=== PATIENT | male | born 1950 | race Caucasian/White ===

== ENCOUNTER 2024-02-14 22:43 | Inpatient (IN) | payer MEDICARE, OTHER, SELFPAY ==
[2024-02-14 18:26] VITALS: BP 140/103
[2024-02-14 18:34] VITALS: BP 148/108
[2024-02-14 18:38] VITALS: BMI 27.2
[2024-02-14 19:00] VITALS: BP 105/81
--- NOTE | 2024-02-14 19:07 | ED.GENMED ---
History of Present Illness
General
Chief Complaint: Fever
Source: patient
Time Seen by Provider: 02/14/24 18:56
Travel History
Have you had any contact with someone who has COVID-19?: No
Do you have any symptoms of coronavirus? Fever > 100 degrees, chills, cough, shortness of breath, sore throat, loss of taste or smell, muscle aches, or headache?: Yes
Symptoms:: fever
History of Present Illness
History of Present Illness:
73-year-old male presents emergency room complaining of weakness, fevers, increased with urination. Patient has a neurodegenerative disease called posterior cortical atrophy. He has been having the above issues with urination over the past several
weeks. This has been worked up by urology including a urodynamic study. They felt like he was developing a neurogenic bladder. was instructed to perform intermittent catheterization at home. When the patient is catheterized she gets about
150 cc of urine. When he is with spontaneously he voids about 150 cc of urine. No significant cough. No shortness of breath. Patient seems to have more tremors and spasticity over the past couple days.
Past History
Past History
ED Past Medical History: Other (Posterior cortical atrophy)
ED Past Surgical History: None
Social History
Tobacco: Non-smoker
Alcohol: None
Drug: None
Personal:
Living: with family
Employment: Retired
Phy Exam
Physical Exam
Physical Exam:
General: Awake, Alert, Oriented X3. No acute distress, appears chronically ill
Vitals: Febrile, tachycardic
Head: Atraumatic
Eyes: Pupils equal, EOMI
Throat: Airway intact, no exudates, dry mucosa
Neck: Trachea midline
Lungs: Clear and equal b/l
Heart: Regular rate, no murmurs
Abd: Soft, Nontender, No pulsatile mass
Neuro: Grossly nonfocal, intermittent myoclonic jerk
Skin: Warm, dry, no rash
Extremities: pulses equal b/l, no edema
Course
Orders/Labs/Results
Orders:
Orders
02/14/24 Dinner
Regular
At Your Request: Limited Participation
02/14/24 18:53
Electrocardiogram (*1) Urgent
Reason for Study: Other
Other Reason for Exam: Possible Sepsis
Cardiac Monitoring- Treatment ONCE
Straight cath- Treatment ONCE
O2 Therapy [RESP] Urgent
Titrate/Wean O2 to maintain O2 sat greater than (%): 93
Special Instructions: TO MAINTAIN CONTINUOUS O2 SATS > OR = 93%
Pulse Ox/cont/shift [RESP] Urgent
Quantity: 1
Special Instructions: CONTINUOUS
02/14/24 18:54
EKG- Treatment ONCE
02/14/24 19:01
Complete Blood Count/With Diff Urgent
Comprehensive Metabolic Panel Urgent
Lactic Acid Q4H
Comment: ON ICE, CANCEL 2ND ORDER IF FIRST LACTIC ACID LEVEL <2
02/14/24 19:05
Acetaminophen [Tylenol Suspension] 650 mg PO NOW STA
02/14/24 19:06
Straight cath- Treatment ONCE
02/14/24 19:41
COVID-19 Antigen Urgent
Source: Nasal Swab
Blood Culture Q30M
CHARANJIT Source: Blood/Venous
Specimen Description:
Blood Culture Q30M
CHARANJIT Source: Blood/Venous
Specimen Description:
Influenza A+B Rapid Molecular Urgent
CHARANJIT Source: Nasal Swab
Specimen Description:
02/14/24 20:26
Urinalysis Reflex To Culture Urgent
Date Specimen was Collected: 02/14/24
Time Specimen was Collected: 18:54
Urine Microscopic Reflex Cult Urgent
Urine Culture Urgent
CHARANJIT Source: U
Specimen Description:
Date Specimen was Collected: 02/14/24
Time Specimen was Collected: 18:54
02/14/24 20:33
Ibuprofen [Motrin] 400 mg PO NOW STA
02/14/24 20:39
Ibuprofen [Motrin] 400 mg PO NOW STA
02/14/24 21:22
CefTRIAXone [Rocephin] 1,000 mg IV NOW STA
02/14/24 22:08
Admit/Transfer Patient As Directed
Co-Sign Provider:
Level of Care: Inpatient admission
Assign to:: Medical/Surgical
Physician / Group: Mary
Diagnosis: Sepsis UTI
Reason for Hospitalization: Sepsis UTI
Expected length of stay greater than two midnights?: Yes
ELOS- Estimated Length of Stay in days: 2
I certify the patient meets the requirements for IP care: Yes
02/14/24 22:11
Code Status As Directed
Resuscitation Status: Do not resuscitate
Reached after discussion with pt or family/Healthcare POA: Yes
DNR Bracelet Application ONCE
02/14/24 23:00
Methenamine Hippurate [Hiprex] 1 gram PO BID
02/14/24 23:27
0.9% Sodium Chloride 1000 ml [Nss] 1,000 ml IV 80 mls/hr
Acetaminophen [Tylenol] 650 mg PO Q4HPRN PRN
Bisacodyl [Dulcolax] 10 mg RECTAL [id number] PRN
Docusate W/Senna [Senokot-S] 1 tablet PO BIDPRN PRN
Memantine HCl [Namenda] 10 mg PO BID
Mirtazapine [Remeron] 7.5 mg PO HS
Ondansetron Injectable [Zofran] 4 mg IV Q6HPRN PRN
Polyethylene Glycol Powder [Miralax] 17 grams PO DAILYPRN PRN
Quetiapine Fumarate [Seroquel] 12.5 mg PO HSPRN PRN
02/14/24 23:27
Activity As Directed
Activity Level: As Tolerated
Intake/ Output As Directed
Frequency: Per unit guidelines
Vital Signs As Directed
Frequency: Per unit guidelines
Weight As Directed
Frequency: Daily
DX Deep Vein Thrombosis Video Routine
02/15/24 07:30
Basic Metabolic Panel IN AM
Complete Blood Count/With Diff IN AM
Magnesium IN AM
02/15/24 18:00
Enoxaparin Sodium [Lovenox] 40 mg SC QPM
Abnormal Lab Results
02/14/24 02/14/24
19:01 20:26
WBC 18.6 H 10^3/uL
(4.8-10.8)
MCH 31.3 H pg
(27.0-31.0)
MPV 10.7 H fL
(7.4-10.4)
Abs Immat Gran (auto) 0.1 H 10^3/uL
(0-0.05)
Absolute Neuts (auto) 15.3 H 10^3/uL
(1.4-6.5)
Absolute Lymphs (auto) 1.1 L 10^3/uL
(1.2-3.4)
Absolute Monos (auto) 1.2 H 10^3/uL
(0.1-0.6)
Absolute Eos (auto) 0.8 H 10^3/uL
(0-0.7)
Neutrophils % 82.3 H %
(42.2-75.2)
Lymphocytes % 6.1 L %
(20.5-51.1)
BUN 31 H mg/dl
(9-20)
Urine Ketones Trace A
(Negative)
Ur Occult Blood Reflex 4+ A
(Negative)
Urine Nitrite (Reflex) Positive A
(Negative)
Leukocyte Esterase Rfl 2+ A
(Negative)
Urine RBC 26-30 A /HPF
(0-2)
Urine WBC (Reflex) >100 A /HPF
(0-5)
Urine Bacteria (Reflex) Moderate A
(Negative)
Urine Albumin (Reflex) 2+ A
(Neg - Trace)
02/14/24 19:01
02/14/24 19:01
Vital Signs
Initial and Last Documented VS:
Initial Vital Signs
Temp Pulse Resp BP Pulse Ox
99.8 F 121 18 140/103 89
02/14/24 18:26 02/14/24 18:26 02/14/24 18:26 02/14/24 18:26 02/14/24 18:26
Last Documented Vital Signs
Temp Pulse Resp BP Pulse Ox
98.2 F 70 17 124/83 96
02/18/24 15:30 02/18/24 15:30 02/18/24 15:30 02/18/24 15:30 02/18/24 15:30
MDM/Problems Addressed
Differential Diagnosis Includes:
Viral syndrome, UTI, pneumonia
MDM/Problems Addressed:
Patient presents with fever., Urinary symptoms. He is receiving intermittent catheterizations. He does take prophylactic methenamine.
Urine highly c/w UTI. Abx initiated. Given pt symptoms and co-morbidities pt will require inpatient management.
*Critical Care Note
Total Time (30-74mins, 75-104mins- exclusive of procedures): Not Applicable
ED Attending Note
-
Portions of this chart may have been created with voice recognition software.� Occasional wrong word or��sound alike� substitutions may have occurred due to the inherent limitations of voice recognition software.
Discharge Plan
Departure
Patient Disposition: Admit
Date of Disposition: 02/14/24
Time of Disposition: 21:27
Admit to: Med/Surg
Presentation/result/management discussed w/ accepting MD/DO: Hospitalist
Condition: Fair
Discharge Problem:
Acute UTI
Interventions
Interventions:
*Risk Screen - Suicide Last Done: 02/14/24 23:31
*General Assessment Last Done: 02/14/24 18:39
*Neglect/Abuse Screening Last Done: 02/14/24 18:39
ED- Fall Risk Assessment Last Done: 02/14/24 18:39
*ED COVID-19 Vaccine History Last Done: 02/14/24 23:31
*Nursing Disposition Last Done: 02/14/24 23:09
ED- Neurological Assessment Last Done: 02/14/24 18:39
ED-Skin Assessment Last Done: 02/14/24 18:39
Discharge Date and Time
Discharge Date/Time: 02/14/24 23:10
[2024-02-14 19:11] LABS: % Basophils 0.4 % (0-2); % Eosinophils 4.3 % (0-6); % Immature Granulocytes 0.3 % (0-0.5); % Lymphocytes 6.1 % (20.5-51.1); % Monocytes 6.6 % (1.7-9.3); % Neutrophils 82.3 % (42.2-75.2); Absolute Basophils 0.1 10^3/uL (0-0.2); Absolute Eosinophils 0.8 10^3/uL (0-0.7); Absolute Immature Granulocytes 0.1 10^3/uL (0-0.05); Absolute Lymphocytes 1.1 10^3/uL (1.2-3.4); Absolute Monocytes 1.2 10^3/uL (0.1-0.6); Absolute Neutrophils 15.3 10^3/uL (1.4-6.5); Hematocrit 42.8 % (39.0-52.0); Mean Corpuscular Hgb 31.3 pg (27.0-31.0); Mean Corpuscular Volume 89.2 fL (80.0-94.0); Mean Platelet Volume 10.7 fL (7.4-10.4); Nucleated Red Blood Cells % 0 % (-); Platelet Count 245 10^3/uL (130-400); Red Cell Dist. Width 12.7 % (11.5-14.5); White Blood Cell Count 18.6 10^3/uL (4.8-10.8)
[2024-02-14 19:18] LABS: Lactic Acid 1.4 mmol/L (0.7-2.0)
[2024-02-14 19:20] LABS: ALT (SGPT) 33 U/L (0-50); AST (SGOT) 31 U/L (17-59); Albumin 4.2 g/dl (3.5-5.0); Alkaline Phosphatase 76 U/L (38-126); Blood Urea Nitrogen 31 mg/dl (9-20); Carbon Dioxide 24 mmol/L (22-30); Chloride 104 mmol/L (98-107); Estimated Creatinine Clearance 60 ml/min; Glucose 99 mg/dl (70-99); Potassium 4.7 mmol/L (3.5-5.1); Sodium 135 mmol/L (135-145); Total Bilirubin 0.6 mg/dl (0.2-1.3); Total Protein 7.3 g/dl (6.3-8.2); eGFR > 60.00
[2024-02-14] MEDS: TYLENOL SUSPENSION 650 MG PO (19:31)
[2024-02-14 20:08] LABS: COVID-19 Antigen Negative (Negative)
[2024-02-14 20:24] VITALS: BP 120/110
[2024-02-14] MEDS: MOTRIN 400 MG PO (20:43)
[2024-02-14 20:45] LABS: Urine Albumin 2+ (Neg - Trace); Urine Bilirubin Negative (Negative); Urine Character Slightly Cloudy (Clear); Urine Color Yellow; Urine Glucose Negative (Negative); Urine Ketone Trace (Negative); Urine Leukocyte 2+ (Negative); Urine Nitrite Positive (Negative); Urine Occult Blood 4+ (Negative); Urine Specific Gravity 1.015 (<1.030); Urine Urobilinogen Negative (Neg - 1+)
[2024-02-14 21:12] LABS: Urine Bacteria Moderate (Negative); Urine Red Blood Cell 26-30 /HPF (0-2); Urine White Cell >100 /HPF (0-5)
--- NOTE | 2024-02-14 21:38 | HPS.HSE ---
Family Physician
-
Family Physician: Francisco Ibanez
Chief Complaint
-
Weakness, Chills, Decreased Mentation x 2 days
History of Present Illness
73yo M with PMH Posterior Cortical Atrophy (left sided weakness, sensory deficit, visual deterioration), Reactive Airway Disease, BPH s/p TURP, IBS, Fatty Liver currently on palliative care services with Dr. Yousif presents to ER with complaint
chills, increased urination, decreased mentation worsening over last 2 days. Pt is a poor historian. at bedside aiding HPI. She states pt followed up with Urology Dr. Dietrich last week for urodynamics which reports possibly showed
neurogenic bladder but otherwise wnl. She started straight cathing but never had output of over 175cc decreasing progressively over last few days. Pt endorses mild suprapubic discomfort. does state pt completed out a 14 day course of
doxycycline for unclear infection prior to urodynamics. At baseline pt is AAOx3, confined primarily to wheel chair, has a small sacral wound. ROS limited. Denies diaphoresis, chest pain, palps, wheezing, cough, abd pain, n/v/d/c, calf or leg pain.
ER course: Pt presents Tmax 102.3, HR 129, RR 26, BP stable. WBC 18.6K. BUN/Cr 31/1.2, LA 1.4, LFTs wnl. COVID(-). BC x 2 ordered. S/P 1gm IV rocephin and 400mg Ibuprofen x 2 in ER.
Medical History
Past Medical History
Past Medical History: Reports Other (posterior cortical atrophy with chronic left-sided weakness/numbness and visual deterioration, IBS, reactive airway disease, fatty liver, BPH )
Past Surgical History: Reports None and Other
Social History
Tobacco: Non-smoker
Alcohol: None
Drug: None
Family History
Family History: Not pertinent
Allergies / Home Medications
Allergies
Allergy/AdvReac Type Severity Reaction Status Date / Time
tamsulosin [From Flomax] Allergy Nightmares Verified 02/14/24 18:24
Home Medications
memantine 10 mg tablet 10 mg PO BID 09/09/20
methenamine hippurate 1 gram tablet 1 g PO BID 02/14/24
mirtazapine 7.5 mg tablet 7.5 mg PO HS 02/14/24
quetiapine 25 mg tablet (Seroquel) 12.5 mg PO HS PRN sleep 02/14/24
Allergy/Medication List:
as above
Review of Systems
-
A 12 point ROS was completed and negative except as noted: Yes
Physical Exam
Vital Signs
Vital Signs
Temp Pulse Resp BP Pulse Ox
102.3 F H 120 23 120/110 97
02/14/24 20:27 02/14/24 20:45 02/14/24 20:45 02/14/24 20:24 02/14/24 18:45
Physical Exam
General: Well Nourished, No Apparent Distress, Poor Appetite and Appears Chronically Ill
HEENT: NormoCephalic, Atraumatic, PERRLA and Other (Dry MM, No exudates in oropharynx)
Respiratory: Clear
Cardiac: S1/S2 and Regular Rhythm; No Murmur or Rub
GI: Soft, Non Tender, Non Distended and Normal Bowel Sounds; No Organomegaly
Rectal: Deferred by Provider
Genito-urinary: No costovertebral tender and Supratubic Tube; No Chanel
Musculoskeletal: No Clubbing, No Cyanosis and No Edema
Skin: Warm and Dry; No Rash
Neuro: Awake and Nonfocal/grossly intact
Laboratory Results
-
02/14/24 19:01
02/14/24 19:01
Laboratory Results
Lactic Acid 1.4 mmol/L (0.7-2.0) 02/14/24 19:01
Total Bilirubin 0.6 mg/dl (0.2-1.3) 02/14/24 19:01
AST 31 U/L (17-59) 02/14/24 19:01
ALT 33 U/L (0-50) 02/14/24 19:01
Alkaline Phosphatase 76 U/L (38-126) 02/14/24 19:01
Data Reviewed
-
Medical Tests (Nuc Med, Echo, EKG etc): Image Personally Visualized and interpreted
Lab Data: Labs Reviewed by me
Old Records: Reviewed
Impression/Plan
-
Sepsis 2/2 UTI
- +4/4 SIRS (HR 129, RR 26, T 102.3, WBC 18.6K). LA 1.4. Continue IVF per sepsis protocol
- BCx2 ordered. UA grossly positive, Reflex Cx pending. COVID (-)
- Previous culture (+) Klebsiella. Continue rocephin started in ER
- Prn Tylenol
- Consider urology consult for complex UTI
Posterior Cortical Atrophy Syndrome / Dementia
- Left sided weakness, Sensory deficit, apraxia, and visual disturbances
- Continue home memantine, mirtazapine, and prn seroquel
- Follows with Dr. Godfrey at [facility]
BPH
- S/P TURP. PKT Dr. Dietrich
- Reports urodynamics in the last week which demonstrated possible neurogenic bladder
- Recent straight caths however all < 175cc. Continue retention protocol. Consier urology consult.
Sacral Wound
- Local wound care consult
Palliative Services
- As per pt is on palliative care with Dr. Yousif
Code status: DNR/DNI
DVT PPx - Lovenox
Diet: reports him being on a regular diet without dysphagia. Will obtain ADMINISTRATIVE PERSONAL ASSISTANT evaluation in setting of UTI
[2024-02-14] MEDS: ROCEPHIN 1000 MG IV (22:04)
[2024-02-14 22:45] VITALS: BP 117/61
[2024-02-14 23:41] VITALS: BP 133/92; BMI 29.4
--- NOTE | 2024-02-14 23:45 | PTCARENOTE ---
Pt arrived to room 430-01. Pt transferred from stretcher to bed. VSS. Pt in no signs of acute distress, respirations regular. Pt at bedside, will stay night with him. Pt/ spouse oriented to room, call savage placed within reach.
[2024-02-14] MEDS: NAMENDA PO (23:47)
[2024-02-14] MEDS: HIPREX PO (23:47)
[2024-02-15] MEDS: NSS 1000 IV ×2 (00:04→12:07)
[2024-02-15] MEDS: REMERON 7.5 MG PO ×2 (00:04→21:00)
[2024-02-15 05:54] VITALS: BMI 28.9
[2024-02-15 07:00] VITALS: BP 101/65
[2024-02-15 07:42] LABS: % Basophils 0.4 % (0-2); % Eosinophils 6.2 % (0-6); % Immature Granulocytes 0.4 % (0-0.5); % Lymphocytes 13.2 % (20.5-51.1); % Monocytes 7.2 % (1.7-9.3); % Neutrophils 72.6 % (42.2-75.2); Absolute Basophils 0.1 10^3/uL (0-0.2); Absolute Immature Granulocytes 0.1 10^3/uL (0-0.05); Absolute Monocytes 1.1 10^3/uL (0.1-0.6); Absolute Neutrophils 11.1 10^3/uL (1.4-6.5); Hematocrit 39.9 % (39.0-52.0); Hemoglobin 13.8 g/dL (13.0-18.0); Mean Corp Hgb Conc. 34.6 g/dL (33.0-37.0); Mean Corpuscular Hgb 31.2 pg (27.0-31.0); Mean Corpuscular Volume 90.3 fL (80.0-94.0); Nucleated Red Blood Cells % 0 % (-); Platelet Count 218 10^3/uL (130-400); Red Blood Cell Count 4.42 10^6/uL (4.70-6.10); Red Cell Dist. Width 12.8 % (11.5-14.5); White Blood Cell Count 15.3 10^3/uL (4.8-10.8)
[2024-02-15 08:28] LABS: Blood Urea Nitrogen 30 mg/dl (9-20); Calcium 8.5 mg/dl (8.4-10.2); Carbon Dioxide 23 mmol/L (22-30); Chloride 108 mmol/L (98-107); Estimated Creatinine Clearance 50 ml/min; Glucose 98 mg/dl (70-99); Magnesium 1.9 mg/dl (1.6-2.3); Potassium 3.9 mmol/L (3.5-5.1); Sodium 136 mmol/L (135-145); eGFR 52.41
[2024-02-15] MEDS: NAMENDA 10 MG PO ×2 (09:45→20:12)
[2024-02-15] MEDS: HIPREX 1 GRAM PO ×2 (09:45→20:12)
--- NOTE | 2024-02-15 12:16 | W.PN.HOSP.TC ---
Today's Communication/Plan
-
Continue IV fluids per the protocol
IV antibiotic
Await culture data
Monitor diet tolerance
Assessment / Plan
Assessment / Plan
Sepsis 2/2 suspected UTI
- +4/4 SIRS (HR 129, RR 26, T 102.3, WBC 18.6K). LA 1.4. Continue IVF per sepsis protocol
- BCx2 ordered. UA grossly positive, Reflex Cx pending. COVID (-)
- Previous culture (+) Klebsiella. Continue rocephin started in ER
- Prn Tylenol
Posterior Cortical Atrophy Syndrome / Dementia
- Left sided weakness, Sensory deficit, apraxia, and visual disturbances
- Continue home memantine, mirtazapine, and prn seroquel
- Follows with Dr. Godfrey at [facility]
BPH
- S/P TURP. PKT Dr. Dietrich
- Reports urodynamics in the last week which demonstrated possible neurogenic bladder
- Recent straight caths however all < 175cc. Continue retention protocol.
Sacral Wound
- Local wound care consult
Palliative Services
- As per pt is on palliative care with Dr. Yousif
Code status: DNR/DNI
DVT PPx - Lovenox
Diet: reports him being on a regular diet without dysphagia. Will obtain SAP BW DEVELOPER evaluation in setting of UTI
Discussed with spouse and daughter at bedside in detail. Family requesting personal aide/RN overnight
Anticipated Discharge: > 48 hours
Subjective/Interval History
-
Date of Service: February 15, 2024
Per spouse at bedside patient feeling better
Patient denies any abdominal pain or suprapubic pain
Afebrile
Objective Data
-
Labs:
Laboratory Results
02/15/24
07:30
WBC 15.3 H
Hgb 13.8
Hct 39.9
Plt Count 218
Sodium 136
Potassium 3.9
Chloride 108 H
Carbon Dioxide 23
BUN 30 H
Creatinine 1.4 H
Glucose 98
Calcium 8.5
Vital Signs:
Vital Signs
Temp Pulse Resp BP Pulse Ox
97.1 F 69 14 101/65 95
02/15/24 07:00 02/15/24 07:00 02/15/24 07:00 02/15/24 07:00 02/15/24 07:00
I&O
02/14/24 02/15/24 02/16/24
06:59 06:59 06:59
Intake Total 480 / 480
Balance 480 / 480
Physical Exam
-
General: Well Developed
HEENT: Normocephalic
Respiratory: Clear to Auscultation
Cardiac: Regular Rhythm and S1/S2
GI: Soft, Nontender, Nondistended and Normal Bowel Sounds
Musculoskeletal: No Edema
Skin: Warm
Neuro: Awake
Psych: Calm
Data Reviewed
-
Total Time Spent with Patient (in minutes): 55
--- NOTE | 2024-02-15 13:01 | CM ---
operation manager reviewed patient's chart and met with patient, patient's spouse and patient's daughter, Ani in room, patient lives with spouse in a 2 story home, with elevator to 2nd floor and ramp into home, patient has a w/c and transport chair in
home, patient has assistance with adl's from spouse and daughter, patient is current with [facility] [phone], , and [facility] private caregiver services. Patient is also current with Palliative care from [place]
Palliative care team. Patient has a prescription plan and patient uses [facility] pharmacy.
PCP: Dr. Ibanez
Plan; Home with family, private caregivers, and with resumption of care with [facility].
[facility] will need discharge summary only at discharge to resume services.
[phone]
[2024-02-15 14:35] VITALS: BP 122/60; PULSE 76
[2024-02-15 14:36] VITALS: BP 122/60
[2024-02-15 15:00] VITALS: BP 119/57
--- NOTE | 2024-02-15 15:41 | PTOTSP ---
pt currently requires moderate to max assist of 2 to complete simple ADLs, functional transfers. pt is able to follow simple one step direction. per spouse, pt is close to baseline in regards to cognition and alertness. no acute OT needs identified,
as pt is assisted in all aspects of ADLs, IADLs previously. no acute OT needs identified, will sign off.
[2024-02-15] MEDS: LOVENOX 40 MG SC (17:43)
[2024-02-15] MEDS: STERILE WATER FOR INJECTION 10 ML IV (21:00)
[2024-02-15] MEDS: ROCEPHIN 1000 MG IV (21:00)
[2024-02-15] MEDS: TYLENOL 650 MG PO (21:28)
[2024-02-15 23:26] VITALS: BP 132/84
[2024-02-16 06:00] VITALS: BMI 29.1
[2024-02-16 07:35] VITALS: BP 118/65
[2024-02-16] MEDS: NAMENDA 10 MG PO ×2 (07:38→20:25)
[2024-02-16] MEDS: HIPREX 1 GRAM PO ×2 (07:38→20:25)
[2024-02-16 08:59] LABS: % Basophils 0.8 % (0-2); % Eosinophils 12.6 % (0-6); % Immature Granulocytes 0.3 % (0-0.5); % Monocytes 5.9 % (1.7-9.3); % Neutrophils 62.4 % (42.2-75.2); Absolute Basophils 0.1 10^3/uL (0-0.2); Absolute Eosinophils 1.3 10^3/uL (0-0.7); Absolute Lymphocytes 1.9 10^3/uL (1.2-3.4); Absolute Monocytes 0.6 10^3/uL (0.1-0.6); Absolute Neutrophils 6.6 10^3/uL (1.4-6.5); Hematocrit 38.5 % (39.0-52.0); Hemoglobin 13.3 g/dL (13.0-18.0); Mean Corp Hgb Conc. 34.5 g/dL (33.0-37.0); Mean Corpuscular Volume 89.7 fL (80.0-94.0); Mean Platelet Volume 10.3 fL (7.4-10.4); Nucleated Red Blood Cells % 0 % (-); Platelet Count 216 10^3/uL (130-400); Red Blood Cell Count 4.29 10^6/uL (4.70-6.10); Red Cell Dist. Width 12.6 % (11.5-14.5); White Blood Cell Count 10.6 10^3/uL (4.8-10.8)
[2024-02-16 10:58] LABS: Blood Urea Nitrogen 24 mg/dl (9-20); Calcium 8.5 mg/dl (8.4-10.2); Carbon Dioxide 22 mmol/L (22-30); Chloride 110 mmol/L (98-107); Estimated Creatinine Clearance 58 ml/min; Glucose 105 mg/dl (70-99); Potassium 4.1 mmol/L (3.5-5.1); Sodium 136 mmol/L (135-145); eGFR > 60.00
--- NOTE | 2024-02-16 11:33 | W.PN.HOSP.TC ---
Today's Communication/Plan
-
await culture data
IV abx
fever curve improving
wbc downtrended
Assessment / Plan
Assessment / Plan
Sepsis 2/2 suspected UTI 2/2 gram neg bacilli -poa
- +4/4 SIRS (HR 129, RR 26, T 102.3, WBC 18.6K). LA 1.4. Continue IVF per sepsis protocol
- BCx2 ordered. UA grossly positive, Reflex Cx pending. COVID (-)
- Previous culture (+) Klebsiella. Continue rocephin
- Prn Tylenol.
-fever curve improving. wbc downtrended
Posterior Cortical Atrophy Syndrome / Dementia
- Left sided weakness, Sensory deficit, apraxia, and visual disturbances
- Continue home memantine, mirtazapine, and prn seroquel
- Follows with Dr. Godfrey at [facility]
BPH
- S/P TURP. PKT Dr. Dietrich
- Reports urodynamics in the last week which demonstrated possible neurogenic bladder
- Recent straight caths however all < 175cc. Continue retention protocol.
Sacral Wound
- Local wound care consult
Palliative Services
- As per pt is on palliative care with Dr. Yousif
Code status: DNR/DNI
DVT PPx - Lovenox
Diet: reports him being on a regular diet without dysphagia. Will obtain PARTS SALESMAN evaluation in setting of UTI
Discussed with spouse at bedside detail. Family requesting personal aide/RN overnight
Anticipated Discharge: > 48 hours
Subjective/Interval History
-
Date of Service: February 16, 2024
spiked fever yesterday
tolerating diet
states of dysuria
Objective Data
-
Labs:
Laboratory Results
02/16/24
08:46
WBC 10.6
Hgb 13.3
Hct 38.5 L
Plt Count 216
Sodium 136
Potassium 4.1
Chloride 110 H
Carbon Dioxide 22
BUN 24 H
Creatinine 1.2
Glucose 105 H
Calcium 8.5
Vital Signs:
Vital Signs
Temp Pulse Resp BP Pulse Ox
97.5 F 57 16 118/65 96
02/16/24 07:35 02/16/24 07:35 02/16/24 07:35 02/16/24 07:35 02/16/24 07:35
I&O
02/15/24 02/16/24 02/17/24
06:59 06:59 06:59
Intake Total 480 / 480 660 / 660
Balance 480 / 480 660 / 660
Physical Exam
-
General: Well Developed
HEENT: Normocephalic
Respiratory: Clear to Auscultation
Cardiac: Regular Rhythm and S1/S2
GI: Soft, Nontender, Nondistended and Normal Bowel Sounds
Musculoskeletal: No Edema
Skin: Warm
Neuro: Awake
Psych: Calm
--- NOTE | 2024-02-16 15:17 | CHAP ---
A visit had been requested for Mr. [place]. His daughter was present - she thought her father might be too groggy to talk. We agreed to try again at another time.
[2024-02-16 15:45] VITALS: BP 119/80
[2024-02-16] MEDS: LOVENOX 40 MG SC (17:26)
[2024-02-16] MEDS: REMERON 7.5 MG PO (21:17)
[2024-02-16] MEDS: ROCEPHIN 1000 MG IV (21:17)
[2024-02-16] MEDS: STERILE WATER FOR INJECTION 10 ML IV (21:17)
[2024-02-16 23:24] VITALS: BP 146/64
[2024-02-17 06:00] VITALS: BMI 29.1
[2024-02-17 07:40] VITALS: BP 131/75
[2024-02-17] MEDS: HIPREX 1 GRAM PO ×2 (08:34→20:16)
[2024-02-17] MEDS: NAMENDA 10 MG PO ×2 (08:34→20:16)
--- NOTE | 2024-02-17 11:10 | W.PN.HOSP.TC ---
Today's Communication/Plan
-
Switch to cefepime
ID consultation
Assessment / Plan
Assessment / Plan
Sepsis 2/2 suspected UTI 2/2 Pseudomonas-poa
- +4/4 SIRS (HR 129, RR 26, T 102.3, WBC 18.6K). LA 1.4. Continue IVF per sepsis protocol
- BCx2 negative so far. COVID (-)
-Urine culture with Pseudomonas and resistant to Cipro/Levaquin. Switch antibiotic to cefepime.
- Prn Tylenol.
-fever curve improving. wbc downtrended
-Will ask ID for input. May require IV antibiotics on DC.
Posterior Cortical Atrophy Syndrome / Dementia
- Left sided weakness, Sensory deficit, apraxia, and visual disturbances
- Continue home memantine, mirtazapine, and prn seroquel
- Follows with Dr. Godfrey at [facility]
BPH
- S/P TURP. PKT Dr. Dietrich
- Reports urodynamics in the last week which demonstrated possible neurogenic bladder
- Recent straight caths however all < 175cc. Continue retention protocol.
Sacral Wound
- Local wound care consult
Palliative Services
- As per pt is on palliative care with Dr. Yousif
Code status: DNR/DNI
DVT PPx - Lovenox
Diet: reports him being on a regular diet without dysphagia. Will obtain WEED INSPECTOR evaluation in setting of UTI
Discussed with spouse at bedside detail on daily basis.
Anticipated Discharge: 24 - 48 hours
Subjective/Interval History
-
Date of Service: February 17, 2024
remains afebrile
tolerating diet
walked little bit yesterday
Objective Data
-
Labs:
Laboratory Results
02/17/24
08:28
WBC Cancelled
Hgb Cancelled
Hct Cancelled
Plt Count Cancelled
Sodium Cancelled
Potassium Cancelled
Chloride Cancelled
Carbon Dioxide Cancelled
BUN Cancelled
Creatinine Cancelled
Glucose Cancelled
Calcium Cancelled
Vital Signs:
Vital Signs
Temp Pulse Resp BP Pulse Ox
97.7 F 63 16 131/75 97
02/17/24 07:40 02/17/24 07:40 02/17/24 07:40 02/17/24 07:40 02/17/24 07:40
I&O
02/16/24 02/17/24 02/18/24
06:59 06:59 06:59
Intake Total 660 / 660 1380 / 1380
Balance 660 / 660 1380 / 1380
Physical Exam
-
General: Well Developed
HEENT: Normocephalic
Respiratory: Clear to Auscultation
Cardiac: Regular Rhythm and S1/S2
GI: Soft, Nontender, Nondistended and Normal Bowel Sounds
Musculoskeletal: No Edema
Skin: Warm
Neuro: Awake
Psych: Calm
[2024-02-17] MEDS: MAXIPIME 2000 MG IV ×2 (11:46→20:16)
[2024-02-17] MEDS: STERILE WATER FOR INJECTION 10 ML IV ×2 (11:46→20:16)
--- NOTE | 2024-02-17 14:10 | CON.ID ---
Consultation
-
Date/Time Consultation Requested: 02/17/24 10:16
Date/Time Consultation Performed: 02/17/24 14:10
Requesting Provider: Dr Narayan
Performing Provider: Dr Shaikh
Reason for Consultation: Weakness, Chills, Decreased Mentation x 2 days
Chief Complaint / Past History
Chief Complaint
Weakness, Chills, Decreased Mentation x 2 days
History of Present Illness
Mr oropeza is a 73 year old male with dementia, neurogenic bladder doing striaght caths who presented here for chills, increased urination, suprapubic tenderness, decreased mentation worsening over last 2 days. History limited by the condition of
the patient - history from chart reivew. Recently completed a 14 day course of doxycycline for possible infection. of note sacral wound present on arrival. Denies diaphoresis, chest pain, palps, wheezing, cough, abd pain, n/v/d/c, calf or leg
pain.
Since arrival here Tmax 102.3 - fever curve improving, bp stable, wbc initially 18.6 now 10.6, hgb 13.3, plt 216, L shift present on arrival normal last two days, cr baseline 1.2 and 1.2 today, lactic acid 1.4, UA > 100 wbc/hpf and moderate
bacteria, urine culture 100 K quinolone resistant pseudomonas, currently on cefepime, ID is consulted for assistance with management.
Past History
Additional Past Medical History:
posterior cortical atrophy with chronic left-sided weakness/numbness and visual deterioration, IBS, reactive airway disease, fatty liver, BPH
Past Surgical History: None
Allergy History:
tamsulosin [From Flomax] Allergy (Verified 02/14/24 18:24)
Nightmares
Medications Reviewed: Yes
Social History
Tobacco: Non-Smoker
Alcohol: None
Drug: None
Family History
Family History: Not Pertinent
Review of Systems
Review of Systems
General: Negative Fever or Chills
All systems: All other systems were reviewed and were negative
Vital Signs
Temp Pulse Resp BP Pulse Ox
97.7 F 63 16 131/75 97
02/17/24 07:40 02/17/24 07:40 02/17/24 07:40 02/17/24 07:40 02/17/24 07:40
Physical Exam
Physical Exam
Constitutional: No Acute Distress
Cardiovascular: Regular Rate and S1/S2; Negative Murmur or Rub
Pulmonary: Clear and Symmetric; Negative Wheezes, Rales or Rhonchi
Gastrointestinal: Soft, Non Tender, Non Distended and Normal Bowel Sounds
Genito-Urinary: Negative Suprapubic Tenderness
Skin: Warm and Dry; Negative Rash or Jaundice
Lab / Diagnostic Study Results
02/17/24 08:28
02/17/24 08:28
Abs Immat Gran (auto) Cancelled 02/17/24 08:28
Absolute Neuts (auto) Cancelled 02/17/24 08:28
Absolute Lymphs (auto) Cancelled 02/17/24 08:28
Absolute Monos (auto) Cancelled 02/17/24 08:28
Absolute Basos (auto) Cancelled 02/17/24 08:28
Immature Gran % Cancelled 02/17/24 08:28
Neutrophils % Cancelled 02/17/24 08:28
Lymphocytes % Cancelled 02/17/24 08:28
Monocytes % Cancelled 02/17/24 08:28
Eosinophils % Cancelled 02/17/24 08:28
Basophils % Cancelled 02/17/24 08:28
Lactic Acid Cancelled 02/14/24 23:00
Microbiology Results
Micro:
02/14/24 20:26 Urine Culture - Final
Urine Pseudomonas aeruginosa
02/14/24 19:41 Blood Culture - Preliminary
Blood/Venous No Growth in 48 hours- Final report to follow
02/14/24 19:41 Blood Culture - Preliminary
Blood/Venous No Growth in 48 hours- Final report to follow
02/14/24 19:41 Influenza Types A & B (THAD) - Final
Nasal Swab Negative for Influenza A & B, NAAT
Negative results must be combined with clinical observations
and patient history.
Nucleic Acid Amplification test (NAAT)performed on the
[employer] platform.
Assessment / Plan
Complicated UTI due to Pseudomonas
Neurogenic Bladder
- clinically improving
- blood cultures x2 no growth to date
- isolate resistant quinolones
- midline
- home IV antibiotics
[2024-02-17] MEDS: SEROQUEL 12.5 MG PO (15:46)
[2024-02-17 16:24] VITALS: BP 116/72
--- NOTE | 2024-02-17 16:41 | CM ---
Patient with Hx dementia with Dx sepsis, suspect UTI. Room air. Receiving IV cefepime.
Received script from Dr Shaikh for home IV cefepime, end date 01/01/24 via PICC/midline.
Phone calls to Jyothi & daughter Bárbara; left messages requesting callback for d/c planning with home IV infusion.
Plan follow up with family tomorrow about home IV infusion and make referral to [facility].
[2024-02-17] MEDS: LOVENOX 40 MG SC (17:31)
[2024-02-17] MEDS: REMERON 7.5 MG PO (21:13)
[2024-02-17 23:00] VITALS: BP 152/57
[2024-02-18 04:02] VITALS: BMI 28.8
[2024-02-18 05:21] LABS: % Basophils 0.6 % (0-2); % Eosinophils 12.9 % (0-6); % Immature Granulocytes 0.4 % (0-0.5); % Monocytes 7.1 % (1.7-9.3); Absolute Basophils 0.1 10^3/uL (0-0.2); Absolute Eosinophils 1.1 10^3/uL (0-0.7); Absolute Monocytes 0.6 10^3/uL (0.1-0.6); Absolute Neutrophils 4.7 10^3/uL (1.4-6.5); Hematocrit 37.4 % (39.0-52.0); Hemoglobin 13.1 g/dL (13.0-18.0); Mean Corpuscular Hgb 31.1 pg (27.0-31.0); Mean Corpuscular Volume 88.8 fL (80.0-94.0); Mean Platelet Volume 10.1 fL (7.4-10.4); Nucleated Red Blood Cells % 0 % (-); Platelet Count 236 10^3/uL (130-400); Red Blood Cell Count 4.21 10^6/uL (4.70-6.10); Red Cell Dist. Width 12.6 % (11.5-14.5); White Blood Cell Count 8.5 10^3/uL (4.8-10.8)
[2024-02-18 05:56] LABS: Blood Urea Nitrogen 21 mg/dl (9-20); Calcium 8.5 mg/dl (8.4-10.2); Carbon Dioxide 24 mmol/L (22-30); Chloride 109 mmol/L (98-107); Estimated Creatinine Clearance 58 ml/min; Glucose 88 mg/dl (70-99); Potassium 4.3 mmol/L (3.5-5.1); Sodium 136 mmol/L (135-145); eGFR > 60.00
[2024-02-18 07:30] VITALS: BP 113/58
[2024-02-18] MEDS: NAMENDA 10 MG PO (09:00)
[2024-02-18] MEDS: HIPREX 1 GRAM PO (09:00)
[2024-02-18] MEDS: STERILE WATER FOR INJECTION 10 ML IV ×2 (09:02→17:29)
[2024-02-18] MEDS: MAXIPIME 2000 MG IV ×2 (09:02→17:29)
--- NOTE | 2024-02-18 11:27 | CM ---
Chart reviewed and patient is for discharge to home today, patient will need ambulance transport to home, and ambulance has been set up for 6pm roll picker, patient will need IV ABX till 03/01/24, for 2 weeks, employment case manager reviewed options with patient
and spouse and they have selected [facility] for home infusion and [facility] for visiting nurses, referrals sent will await information on cost of medication from [facility], Shraddha from [facility] to come to the hospital to teach patient today.
Patient will have his evening dose of IV ABX at 6pm.
Plan; Ambulance transport to home at 6pm, [facility] visiting nurses and [facility] infusion.
[facility] care [place] [phone]
--- NOTE | 2024-02-18 11:49 | W.PN.HOSP.TC ---
Addendum entered and electronically signed by Kate Cifuentes MD 02/20/24 15:14:
sacral stage 1 pressure injury..silicone border treatment provided.
-appreciate wound care
Yes UTI is related to self-catheterizations
Original Note:
Today's Communication/Plan
-
OK for DC today on home IV antibiotics
Assessment / Plan
Assessment / Plan
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 Yousif presents to ER with complaint
chills, increased urination, decreased mentation worsening over last 2 days.
Sepsis 2/2 UTI Pseudomonas-poa
-Urine culture with Pseudomonas and resistant to Cipro/Levaquin. Switch antibiotic to cefepime.
-afebrile, leukocytosis resolved
-DC on IV abx infusion x 2 weeks
Posterior Cortical Atrophy Syndrome / Dementia
- Left sided weakness, Sensory deficit, apraxia, and visual disturbances
- Continue home memantine, mirtazapine, and prn seroquel
- Follows with Dr. Godfrey at [facility]
BPH
- S/P TURP. PKT Dr. Dietrich
- Reports urodynamics in the last week which demonstrated possible neurogenic bladder
- Recent straight caths however all < 175cc. Continue retention protocol.
Sacral Wound
- Local wound care consult
Palliative Services
- As per pt is on palliative care with Dr. Yousif
Code status: DNR/DNI
DVT PPx - Lovenox
Diet: reports him being on a regular diet without dysphagia. 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
Discussed with spouse at bedside detail on daily basis.
Anticipated Discharge: Today
Subjective/Interval History
-
Date of Service: February 18, 2024
no new complaints
no pain
Objective Data
-
Labs:
Laboratory Results
02/18/24
04:58
WBC 8.5
Hgb 13.1
Hct 37.4 L
Plt Count 236
Sodium 136
Potassium 4.3
Chloride 109 H
Carbon Dioxide 24
BUN 21 H
Creatinine 1.2
Glucose 88
Calcium 8.5
Vital Signs:
Vital Signs
Temp Pulse Resp BP Pulse Ox
97.7 F 68 17 113/58 95
02/18/24 07:30 02/18/24 07:30 02/18/24 07:30 02/18/24 07:30 02/18/24 07:30
I&O
02/17/24 02/18/24 02/19/24
06:59 06:59 06:59
Intake Total 1380 / 1380 1380 / 1380
Balance 1380 / 1380 1380 / 1380
Review of Systems
-
History Source: Patient
All other systems: Reviewed and negative
Physical Exam
-
General: Well Developed
HEENT: Normocephalic
Respiratory: Clear to Auscultation
Cardiac: Regular Rhythm and S1/S2
GI: Soft, Nontender, Nondistended and Normal Bowel Sounds
Musculoskeletal: No Edema
Skin: Warm
Neuro: Awake
Psych: Calm
Data Reviewed
-
Diagnostic Radiology: Report Reviewed by me
Labs: Labs Reviewed by me
--- NOTE | 2024-02-18 11:53 | W.DS.TRANS ---
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
-
Discharge Instructions:
Discharge Diagnosis/Procedures pseudomonas urinary tract infection
Diet Regular
Activity As tolerated
Driving Restrictions No driving
Bathing Restrictions None
Blood Work Labs as written in home infusion therapy script
Other Services VN
Instructions:
Stand-Alone Forms:
Changes to Home Medications: Yes
Discharge Medications:
DC Medications w/original date entered in [employer]
memantine 10 mg tablet 10 mg PO BID Mental health/sleep 09/09/20
methenamine hippurate 1 gram tablet 1 g PO BID Urinary Issue 02/14/24
mirtazapine 7.5 mg tablet 7.5 mg PO HS DEMENTIA 02/14/24
quetiapine 25 mg tablet (Seroquel) 12.5 mg PO HS PRN sleep 02/14/24
cefepime 2 gram solution for injection 2,000 mg IV Q12H #0 ea 02/18/24
Home Medication Changes
addition of Cefepime
Pending Results: No
--- NOTE | 2024-02-18 14:23 | PN.CDI ---
CDI
- -
CDI:
Physician Documentation Request
Admit Date: 02/14/24 22:43
Dear Doctor Esau,
Please review the following and provide your response in the progress notes.
Clinical Indicators:
Pt admitted with sepsis 2/2 UTI
Documented throughout the record, ' Sacral Wound Local wound care consult..'
Documented per wound care panel 02/13 on admit sacral stage 1 pressure injury..silicone border treatment provided.
Physician documentation of the type and location of wounds is required for compliant documentation. Based on the above clinical findings and your assessment, please provide the following in your progress note:
. Type (etiology) of ulcer/wound:
- Pressure (decubitus) ulcer
- Non-healing surgical wound
- Other
Use of terms such as suspected, likely, concern for, or probable (associated with a specific diagnosis that is being evaluated, monitored, or treated as if it exists) are acceptable and can be coded in the inpatient setting, when documented at the
time of discharge.
Thank you,
Neyda Dunham RN
CDI Specialist
Leslie Text
Please use your independent medical judgment in providing your response.
*Source: National Pressure Ulcer Advisory Panel (NPUAP)
--- NOTE | 2024-02-18 14:27 | PN.CDI ---
CDI
- -
CDI:
Physician Documentation Request
Admit Date: 02/14/24 22:43
Dear Doctor Esau,
Please review the following and provide your response in the progress notes.
Clinical Indicators:
Pt admitted with Sepsis 2/2 UTI
Documented per ED, ' He has been having the above issues with urination over the past several weeks.. was instructed to perform intermittent catheterization at home. When the patient is catheterized she gets about 150 cc of urine. When he
is with spontaneously he voids about 150 cc of urine. '
ID consult,' Complicated UTI due to Pseudomonas Neurogenic Bladder..'
Please clarify the relationship between these conditions:
Yes, _UTI__ is related to/associated with/due to _Self athing __.
No, _UTI__ is not related to/associated with/due to __Self Cathing _ but it is due to ___. (Please specify)
Unable to determine
Use of terms such as suspected, likely, concern for, or probable (associated with a specific diagnosis that is being evaluated, monitored, or treated as if it exists) are acceptable and can be coded in the inpatient setting, when documented at the
time of discharge.
Thank you,
Neyda Dunahm RN
CDI Specialist
[employer] Text
Please use your independent medical judgment in providing your response.
--- NOTE | 2024-02-18 14:30 | PN.CDI ---
CDI
- -
CDI:
Physician Documentation Request
Dear Doctor Cifuentes,
Please review the following and provide your response in the progress notes.
Clinical Indicators:
Pt admitted with sepsis 2/2 UTI
Documented throughout the record, ' Sacral Wound Local wound care consult..'
Documented per wound care panel 02/13 on admit sacral stage 1 pressure injury..silicone border treatment provided.
Physician documentation of the type and location of wounds is required for compliant documentation. Based on the above clinical findings and your assessment, please provide the following in your progress note:
. Type (etiology) of ulcer/wound:
- Pressure (decubitus) ulcer
- Non-pressure ulcer
- Other
Use of terms such as suspected, likely, concern for, or probable (associated with a specific diagnosis that is being evaluated, monitored, or treated as if it exists) are acceptable and can be coded in the inpatient setting, when documented at the
time of discharge.
Thank you,
Neyda Dunham RN
CDI Specialist
[place] Text
Please use your independent medical judgment in providing your response.
*Source: National Pressure Ulcer Advisory Panel (NPUAP)
--- NOTE | 2024-02-18 15:11 | W.DCSUMMARY ---
Discharge Summary
Discharge Data
Date of Admission: 02/14/24
Date of Discharge: 02/18/24
-
Pending Results: No
Hospital Course
Discharging Physician : Dr. Kate Cifuentes
Disposition : Home with Home Health
Primary care physician : Dr. Francisco Ibanez
Principal Discharge diagnosis : Pseudomonas urinary tract infection
Hospital Course :
Mr. Feliz Parmar is a 73 yo man with PMH Posterior Cortical Atrophy (left sided weakness, sensory deficit, visual deterioration), Reactive Airway Disease, BPH s/p TURP, IBS, Fatty Liver currently on palliative care services with Dr. Yousif presents
to ER with complaint chills, increased urination, decreased mentation worsening over last 2 days. Triage vitals significant for pulse 121, WBC 18.6, temp up to 102.3. He was admitted for sepsis secondary to UTI. Urine culture returned positive for
Pseudomonas resistant to fluoroquinolones. He was transitioned to IV Cefepime. He is discharged on a 2 week course per ID recommendations. Leukocytosis resolved and he has remained afebrile prior to discharge.
Time spent on discharge was 31 minutes.
Important imaging findings :
Procedure findings :
Discharge Plan
-
Patient Disposition: Home with Home Care
Discharge Diagnosis/Procedures: pseudomonas urinary tract infection
Diet: Regular
Activity: As tolerated
Driving Restrictions: No driving
Bathing Restrictions: None
Blood Work: Labs as written in home infusion therapy script
Other Services: VN
Referrals:
Francisco Ibanez MD [Family Provider] - in less than 1 week
Prescriptions:
New
cefepime 2 gram Recon Soln
2,000 mg IV Q12H Qty: 0 0RF
Rx Instructions:
continue for 2 weeks as written in home infusion therapy script
Continued
memantine 10 MG tablet
10 mg PO BID
quetiapine [Seroquel] 25 mg Tablet
12.5 mg PO HS PRN (Reason: sleep)
methenamine hippurate 1 gram Tablet
1 g PO BID
mirtazapine 7.5 mg Tablet
7.5 mg PO HS
Discharge Orders:
Discharge Patient (As Directed); Ordered 02/18/24
Ordered By: Kate Cifuentes
Discharge Date and Time
Print Language: FAROESE
[2024-02-18 15:30] VITALS: BP 124/83
[2024-02-18] MEDS: LOVENOX 40 MG SC (17:23)
== END 2024-02-18 18:11 | disposition home health service (06) | DRG 698 ==
LOC: 4 WEST ACU 22:43
PROVIDERS: Hospitalist; ADMITTING PHYSICIAN Internal Medicine; ATTENDING PHYSICIAN Student in an Organized Health Care Education/Training Program; CONSULT PHYSICIAN Student in an Organized Health Care Education/Training Program; EMERGENCY PHYSICIAN Emergency Medicine; FAMILY PHYSICIAN Internal Medicine
DX: T83.518A Infection and inflammatory reaction due to other urinary catheter, initial encounter (principal); A41.52 Sepsis due to Pseudomonas; N39.0 Urinary tract infection, site not specified; Z16.23 Resistance to quinolones and fluoroquinolones; G31.89 Other specified degenerative diseases of nervous system; N31.9 Neuromuscular dysfunction of bladder, unspecified; R53.1 Weakness; J45.909 Unspecified asthma, uncomplicated; N40.0 Benign prostatic hyperplasia without lower urinary tract symptoms; K58.9 Irritable bowel syndrome, unspecified; K76.0 Fatty (change of) liver, not elsewhere classified; F03.90 Unspecified dementia, unspecified severity, without behavioral disturbance, psychotic disturbance, mood disturbance, and anxiety; H53.9 Unspecified visual disturbance; L89.151 Pressure ulcer of sacral region, stage 1; Y84.6 Urinary catheterization as the cause of abnormal reaction of the patient, or of later complication, without mention of misadventure at the time of the procedure; Y92.9 Unspecified place or not applicable; Y73.2 Prosthetic and other implants, materials and accessory gastroenterology and urology devices associated with adverse incidents; Z66 Do not resuscitate; Z90.79 Acquired absence of other genital organ(s); Z88.8 Allergy status to other drugs, medicaments and biological substances
CPT/HCPCS: 51701; 80048; 80053; 81003; 81015; 83605; 83735; 85025; 87040; 87077; 87086; 87186; 87502; 87811; 93005; 96374; 97163; 97166; 99285

== ENCOUNTER 2024-03-06 23:16 | Inpatient (IN) | payer MEDICARE, OTHER, SELFPAY ==
[2024-03-06 15:05] VITALS: BP 132/71
[2024-03-06 15:18] LABS: % Basophils 0.8 % (0-2); % Eosinophils 5.7 % (0-6); % Immature Granulocytes 0.2 % (0-0.5); % Lymphocytes 11.7 % (20.5-51.1); % Neutrophils 74.6 % (42.2-75.2); Absolute Basophils 0.1 10^3/uL (0-0.2); Absolute Eosinophils 0.6 10^3/uL (0-0.7); Absolute Lymphocytes 1.1 10^3/uL (1.2-3.4); Absolute Monocytes 0.7 10^3/uL (0.1-0.6); Absolute Neutrophils 7.2 10^3/uL (1.4-6.5); Hematocrit 42.8 % (39.0-52.0); Hemoglobin 14.8 g/dL (13.0-18.0); Mean Corp Hgb Conc. 34.6 g/dL (33.0-37.0); Mean Corpuscular Hgb 30.8 pg (27.0-31.0); Nucleated Red Blood Cells % 0 % (-); Platelet Count 284 10^3/uL (130-400); Red Blood Cell Count 4.81 10^6/uL (4.70-6.10); Red Cell Dist. Width 12.4 % (11.5-14.5); White Blood Cell Count 9.7 10^3/uL (4.8-10.8)
[2024-03-06 15:38] LABS: ALT (SGPT) 44 U/L (0-50); AST (SGOT) 33 U/L (17-59); Albumin 4.2 g/dl (3.5-5.0); Alkaline Phosphatase 84 U/L (38-126); Blood Urea Nitrogen 24 mg/dl (9-20); Calcium 9.3 mg/dl (8.4-10.2); Carbon Dioxide 26 mmol/L (22-30); Chloride 104 mmol/L (98-107); Glucose 95 mg/dl (70-99); Potassium 4.5 mmol/L (3.5-5.1); Sodium 138 mmol/L (135-145); Total Bilirubin 0.6 mg/dl (0.2-1.3); Total Protein 7.3 g/dl (6.3-8.2); eGFR > 60.00
--- NOTE | 2024-03-06 20:08 | ED.GENMED ---
History of Present Illness
General
Chief Complaint: Male Genito-Urinary Symptoms
Source: patient
Exam Limitations: none
Time Seen by Provider: 03/06/24 20:05
Nursing documentation reviewed up to this point in time: agreed with
Travel History
Have you had any contact with someone who has COVID-19?: No
Do you have any symptoms of coronavirus? Fever > 100 degrees, chills, cough, shortness of breath, sore throat, loss of taste or smell, muscle aches, or headache?: No
History of Present Illness
History of Present Illness:
Patient is a 73-year-old male with posterior cortical atrophy recent UTI brought to the ER by family. who is primary caregiver reports the patient recently had a UTI was admitted here February 13 discharged February 17 with a PICC line. He was
discharged on IV cefepime. Cefepime was completed Sunday 5 days ago and PICC line was removed on Sunday. Today patient has had some burning with urination and urgency and noticed some whitish discharge from the tip of the penis and urine
appears cloudy. Patient has a history of neurogenic bladder and reports she is supposed to straight cath him but reports she is only getting a little bit of urine out of time at times.
reports no fevers no nausea vomiting.
Past History
Past History
ED Past Medical History: Other (Posterior cortical atrophy)
ED Past Surgical History: None
Social History
Tobacco: Non-smoker
Alcohol: None
Drug: None
Personal:
Living: with family
Employment: Retired
Review of Systems
Review of Systems
Allergies reviewed?: Yes
Other source history: family
All Other Systems: ROS reviewed and negative except as documented in HPI and ROS
Constitutional: Reports no symptoms
EENT: Reports no symptoms
Respiratory: Reports no symptoms
ABD/GI: Reports no symptoms; Denies abdominal pain, nausea or vomiting
: Reports urgency and other (cloudy discharge )
Musculoskeletal: Reports no symptoms
Skin: Reports no symptoms
Hematologic/Lymphatic: Reports no symptoms
Psychiatric: Reports no symptoms
Phy Exam
General Physical Exam
General Presentation: no apparent distress
General age: appears stated age
General Skin: warm and dry
General Habitus: normal
General Mental: alert
General Hydration: appears well hydrated
Gastrointestinal Exam
Gastrointestinal Exam: non tender and soft
Neurological Exam
Neurological Exam: alert and oriented x3
Musculoskeletal Exam
Musculoskeletal Exam: full ROM
Skin Exam
Skin Exam: normal color and warm/dry
Psychiatric Exam
Psychiatric Exam: normal mood/affect
Course
Orders/Labs/Results
Orders:
Orders
03/06/24 15:11
Complete Blood Count/With Diff Urgent
Comprehensive Metabolic Panel Urgent
03/06/24 20:22
Bladder Scan- Treatment ONCE
Straight cath- Treatment ONCE
03/06/24 20:45
UA Reflex to Culture [Urinalysis Reflex To Culture] Urgent
Date Specimen was Collected: 03/06/24
Time Specimen was Collected: 20:44
Urine Microscopic Reflex Cult Urgent
Urine Culture Urgent
CHARANJIT Source: U
Specimen Description:
Date Specimen was Collected: 03/06/24
Time Specimen was Collected: 20:44
03/06/24 22:40
Cefepime HCl [Maxipime] 1,000 mg IV NOW STA
03/06/24 22:45
Lactic Acid Q4H
Comment: CANCEL 2nd LACTIC ACID IF 1st LACTIC ACID IS LESS THAN 2
Blood Culture Q30M
CHARANJIT Source: Blood/Venous
Specimen Description:
03/06/24 23:15
Blood Culture Q30M
CHARANJIT Source: Blood/Venous
Specimen Description:
03/07/24 02:45
Lactic Acid Q4H
Comment: CANCEL 2nd LACTIC ACID IF 1st LACTIC ACID IS LESS THAN 2
Abnormal Lab Results
03/06/24 03/06/24
15:11 20:45
Absolute Neuts (auto) 7.2 H 10^3/uL
(1.4-6.5)
Absolute Lymphs (auto) 1.1 L 10^3/uL
(1.2-3.4)
Absolute Monos (auto) 0.7 H 10^3/uL
(0.1-0.6)
Lymphocytes % 11.7 L %
(20.5-51.1)
BUN 24 H mg/dl
(9-20)
Ur Occult Blood Reflex 3+ A
(Negative)
Leukocyte Esterase Rfl 2+ A
(Negative)
Urine RBC 7-10 A /HPF
(0-2)
Urine WBC (Reflex) >100 A /HPF
(0-5)
03/06/24 15:11
03/06/24 15:11
Vital Signs
Initial and Last Documented VS:
Initial Vital Signs
Temp Pulse Resp BP Pulse Ox
99.2 F 76 18 132/71 96
03/06/24 15:05 03/06/24 15:05 03/06/24 15:03/06/24 15:05 03/06/24 15:05
Last Documented Vital Signs
Temp Pulse Resp BP Pulse Ox
99.2 F 76 18 132/71 96
03/06/24 15:03/06/24 15:03/06/24 15:03/06/24 15:03/06/24 15:05
MDM/Problems Addressed
Differential Diagnosis Includes:
Not limited to UTI
MDM/Problems Addressed:
Patient is a 73-year-old male with neurogenic bladder posterior cortical atrophy cared for at home by with recent UTI . Patient was admitted and sent home on cefepime via PICC line. Last dose was Sunday PICC line removed Sunday. Patient
has had UTI symptoms today no fevers. Patient is afebrile here with a normal white count normal creatinine however after reviewing infectious disease notes and patient receiving cefepime via PICC line will require admission. I did speak with
infectious disease DR Shaikh who does recommend admit .
Last micro specimen of urine reviewed show susceptible to cefepime ceftazidime resistant to Cipro resistant to obviously Levaquin.
*Critical Care Note
Total Time (30-74mins, 75-104mins- exclusive of procedures): Not Applicable
ED Attending Note
-
Portions of this chart may have been created with voice recognition software.� Occasional wrong word or��sound alike� substitutions may have occurred due to the inherent limitations of voice recognition software.
Discharge Plan
Departure
Patient Disposition: Admit
Date of Disposition: 03/06/24
Time of Disposition: 22:48
Admit to doctor: Christiano
Presentation/result/management discussed w/ accepting MD/DO: Hospitalist
Patient with high blood pressure during this ER visit?: No
Condition: Fair
Covid-19: Not Applicable
Discharge Problem:
Acute UTI
Prescriptions:
No Action
memantine 10 MG tablet
10 mg PO BID
quetiapine [Seroquel] 25 mg Tablet
12.5 mg PO HS PRN (Reason: sleep)
methenamine hippurate 1 gram Tablet
1 g PO BID
mirtazapine 7.5 mg Tablet
7.5 mg PO HS
cefepime 2 gram Recon Soln
2,000 mg IV Q12H Qty: 0 0RF
Rx Instructions:
continue for 2 weeks as written in home infusion therapy script
Referrals:
Francisco Ibanez MD [Family Provider] -
Interventions
Interventions:
*Risk Screen - Suicide Last Done: 03/06/24 15:05
*General Assessment Last Done: 03/06/24 15:05
*Neglect/Abuse Screening Last Done: 03/06/24 15:05
ED- Fall Risk Assessment Last Done: 03/06/24 21:03
*ED COVID-19 Vaccine History Last Done: 03/06/24 15:05
ED-Male Genitourinary Assessment Last Done: 03/06/24 21:02
Discharge Date and Time
Print Language: BARBADIAN
[2024-03-06 20:54] LABS: Urine Albumin Trace (Neg - Trace); Urine Bilirubin Negative (Negative); Urine Character Slightly Cloudy (Clear); Urine Color Yellow; Urine Glucose Negative (Negative); Urine Ketone Negative (Negative); Urine Leukocyte 2+ (Negative); Urine Nitrite Negative (Negative); Urine Occult Blood 3+ (Negative); Urine Urobilinogen Negative (Neg - 1+)
[2024-03-06 21:04] LABS: Urine Squamous Cell 0-2 /LPF (Few)
[2024-03-06 21:05] LABS: Urine White Cell >100 /HPF (0-5); Urine White Cell Cast 0-2 /LPF
[2024-03-06 22:55] VITALS: BP 137/61
[2024-03-06 23:00] VITALS: BP 132/74
--- NOTE | 2024-03-06 23:13 | HPS.HSE ---
Family Physician
-
Family Physician: Francisco Ibanez
Chief Complaint
-
urinary symptoms
History of Present Illness
73-year-old male past medical history of posterior cortical atrophy (left-sided weakness, sensory deficit, visual deterioration), neurogenic bladder who straight caths, reactive airway disease, BPH status post TURP, IBS, fatty liver, sacral wound,
presenting with painful urination with purulent discharge, difficulty urinating since yesterday. No fevers or chills. No abdominal pain. No nausea or vomiting. He did have some diarrhea yesterday which is since resolved.
Patient was admitted from 02/13 to 02/17 for sepsis secondary UTI. Urine culture showed Pseudomonas resistant to fluoroquinolones. Patient treated with 2 weeks of cefepime through PICC line which he completed a few days ago status post removal of
PICC line.
catherizes him twice a day.
Patient sees palliative care.
Medical History
Past Medical History
Past Medical History: Reports Other (posterior cortical atrophy (left-sided weakness, sensory deficit, visual deterioration), neurogenic bladder who straight caths, reactive airway disease, BPH status post TURP, IBS, fatty liver, sacral wound)
Past Surgical History: Reports Other (TURP )
Social History
Tobacco: Non-smoker
Alcohol: None
Drug: None
Family History
Family History: Not pertinent
Allergies / Home Medications
Allergies reflects when Allergies were last updated in [facility].
Home Medications with original date entered in [facility]
Allergy/Medication List:
Allergies
Allergy/AdvReac Type Severity Reaction Status Date / Time
tamsulosin [From Flomax] Allergy Nightmares Verified 02/14/24 18:24
benzo Allergy Unknown Uncoded 03/06/24 15:07
Home Medications
memantine 10 mg tablet 10 mg PO BID Mental health/sleep 09/09/20
methenamine hippurate 1 gram tablet 1 g PO BID Urinary Issue 02/14/24
mirtazapine 7.5 mg tablet 7.5 mg PO HS DEMENTIA 02/14/24
quetiapine 25 mg tablet (Seroquel) 12.5 mg PO HS PRN sleep 02/14/24
Review of Systems
-
History Source: Patient
A 12 point ROS was completed and negative except as noted: Yes
Constitutional: Reports No Symptoms
EENT: Reports No Symptoms
Respiratory: Reports No Symptoms
Cardiac: Reports No Symptoms
Abdomen/GI: Reports No Symptoms
: Reports See HPI
Musculoskeletal: Reports No Symptoms
Skin: Reports No Symptoms
Neurological: Reports No Symptoms
Endocrine: Reports No Symptoms
Hematologic/Lymphatic: Reports No Symptoms
Psych: Reports No Symptoms
Physical Exam
Vital Signs
Vital Signs
Temp Pulse Resp BP Pulse Ox
99.2 F 76 18 132/71 96
03/06/24 15:05 03/06/24 15:05 03/06/24 15:05 03/06/24 15:05 03/06/24 15:05
Physical Exam
General: Well Developed, Well Nourished and No Apparent Distress
HEENT: NormoCephalic, Moist mucous membranes and Atraumatic
Respiratory: Clear
Cardiac: S1/S2 and Regular Rhythm; No Murmur or Rub
GI: Soft, Non Tender, Non Distended and Normal Bowel Sounds; No Organomegaly
Rectal: Deferred by Provider
Musculoskeletal: No Clubbing, No Cyanosis and No Edema
Skin: No Rash
Neuro: Nonfocal/grossly intact
Laboratory Results
-
03/06/24 15:11
03/06/24 15:11
Laboratory Results
Total Bilirubin 0.6 mg/dl (0.2-1.3) 03/06/24 15:11
AST 33 U/L (17-59) 03/06/24 15:11
ALT 44 U/L (0-50) 05/02/24 15:11
Alkaline Phosphatase 84 U/L (38-126) 03/06/24 15:11
Data Reviewed
-
Lab Data: Labs Reviewed by me
Old Records: Reviewed
Impression/Plan
-
IMPRESSION:
PLAN:
# Recurrent UTI secondary to straight catheterization
# History of neurogenic bladder with recent history of self catheterizing
-UA showing greater than 100 WBC
-Check urine culture, blood cultures
-Cefepime
-ID consulted
-continue straight catherizing, Bladder scan protocol
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
-Continue memantine, mirtazapine, Seroquel
Reactive airway disease
BPH status post TURP
IBS
Fatty liver
Sacral wound
DNR/DNI
DVT prophylaxis�heparin
Regular diet
[2024-03-06 23:16] LABS: Lactic Acid 1.4 mmol/L (0.7-2.0)
[2024-03-07] VITALS (14 sets, daily range): BP systolic 98–144; BP diastolic 43–84; BMI 29.1
[2024-03-07] MEDS: REMERON 7.5 MG PO (01:08)
[2024-03-07] MEDS: STERILE WATER FOR INJECTION 10 ML IV (02:54)
[2024-03-07] MEDS: MAXIPIME 2000 MG IV (02:54)
[2024-03-07 05:35] LABS: % Eosinophils 7.1 % (0-6); % Immature Granulocytes 0.4 % (0-0.5); % Lymphocytes 27.7 % (20.5-51.1); % Monocytes 8.2 % (1.7-9.3); % Neutrophils 55.6 % (42.2-75.2); Absolute Basophils 0.1 10^3/uL (0-0.2); Absolute Eosinophils 0.6 10^3/uL (0-0.7); Absolute Lymphocytes 2.3 10^3/uL (1.2-3.4); Absolute Monocytes 0.7 10^3/uL (0.1-0.6); Absolute Neutrophils 4.5 10^3/uL (1.4-6.5); Hematocrit 38.8 % (39.0-52.0); Hemoglobin 13.4 g/dL (13.0-18.0); Mean Corp Hgb Conc. 34.5 g/dL (33.0-37.0); Mean Corpuscular Hgb 31.5 pg (27.0-31.0); Mean Corpuscular Volume 91.3 fL (80.0-94.0); Mean Platelet Volume 10.2 fL (7.4-10.4); Nucleated Red Blood Cells % 0 % (-); Platelet Count 233 10^3/uL (130-400); Red Blood Cell Count 4.25 10^6/uL (4.70-6.10); Red Cell Dist. Width 12.4 % (11.5-14.5); White Blood Cell Count 8.1 10^3/uL (4.8-10.8)
[2024-03-07 06:58] LABS: ALT (SGPT) 37 U/L (0-50); AST (SGOT) 28 U/L (17-59); Albumin 3.3 g/dl (3.5-5.0); Alkaline Phosphatase 65 U/L (38-126); Blood Urea Nitrogen 22 mg/dl (9-20); Calcium 8.5 mg/dl (8.4-10.2); Carbon Dioxide 24 mmol/L (22-30); Chloride 109 mmol/L (98-107); Estimated Creatinine Clearance 72 ml/min; Glucose 97 mg/dl (70-99); Potassium 4.2 mmol/L (3.5-5.1); Sodium 137 mmol/L (135-145); Total Bilirubin 0.5 mg/dl (0.2-1.3); eGFR > 60.00
--- NOTE | 2024-03-07 07:08 | W.PN.HOSP.TC ---
Today's Communication/Plan
-
Awaiting ID input on plan of care
Will continue on cefepime on speaking to patient's spouse she would prefer while awaiting culture results to return home with continued care management includes catheterization by her and palliative care options
Assessment / Plan
Assessment / Plan
73-year-old male past medical history of posterior cortical atrophy (left-sided weakness, sensory deficit, visual deterioration), neurogenic bladder who straight caths, reactive airway disease, BPH status post TURP, IBS, fatty liver, sacral wound,
presenting with painful urination with purulent discharge, difficulty urinating since yesterday. No fevers or chills. No abdominal pain. No nausea or vomiting. He did have some diarrhea yesterday which is since resolved.
Patient was admitted from 02/13 to 02/17 for sepsis secondary UTI. Urine culture showed Pseudomonas resistant to fluoroquinolones. Patient treated with 2 weeks of cefepime through PICC line which he completed a few days ago status post removal of
PICC line.
catherizes him twice a day. And she freely admits she is still having some issues with this and just getting comfortable with it.
Patient sees palliative care.
# Recurrent UTI secondary to straight catheterization
# History of neurogenic bladder with recent history of self catheterizing
-UA showing greater than 100 WBC/otherwise no leukocytosis nor febrile course since last admission
-Check urine culture, blood cultures/prior urine culture on 13 February noted Pseudomonas with resistance to quinolones sensitivity to cefepime and Fortaz
-Cefepime restarted
-ID consulted
-continue straight catherizing, Bladder scan protocol
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
-Continue memantine, mirtazapine, Seroquel
Reactive airway disease/stable
BPH status post TURP
IBS
Fatty liver
Sacral wound
DNR/DNI
DVT prophylaxis�heparin
Regular diet
Anticipated Discharge: Within 24 hours
Subjective/Interval History
-
Date of Service: March 07, 2024
Patient appears comfortable but he is a poor historian spouse at bedside and offers most of history and is caregiver and she has been also attempting to straight cath him at home which is new for her. He has been getting purulent return on attempts
at catheterization this started again after termination of antibiotic course and PICC line removal.
Objective Data
-
Labs:
Laboratory Results
03/07/24 03/07/24
05:26 05:59
WBC 8.1
Hgb 13.4
Hct 38.8 L
Plt Count 233
Sodium Cancelled 137
Potassium Cancelled 4.2
Chloride Cancelled 109 H
Carbon Dioxide Cancelled 24
BUN Cancelled 22 H
Creatinine Cancelled 1.0
Glucose Cancelled 97
Calcium Cancelled 8.5
Total Bilirubin Cancelled 0.5
AST Cancelled 28
ALT Cancelled 37
Alkaline Phosphatase Cancelled 65
Vital Signs:
Vital Signs
Temp Pulse Resp BP Pulse Ox
99.2 F 61 13 131/65 96
03/06/24 15:05 03/07/24 06:30 03/07/24 06:30 03/07/24 06:00 03/07/24 06:30
I&O
03/06/24 03/07/24 03/08/24
06:59 06:59 06:59
Output Total 200 / 200
Balance -200 / -200
Review of Systems
-
Unable to obtain full review of systems at this time due to: Dementia
History Source: Patient and Family
Constitutional: Denies Fever
Respiratory: Reports No Symptoms
Cardiac: Reports No Symptoms
Abdomen/GI: Denies Abdominal Pain
Genitourinary: Reports Dysuria and Difficulty Voiding
Physical Exam
-
General: No Apparent Distress
HEENT: Normocephalic
Respiratory: Clear to Auscultation
Cardiac: Regular Rhythm
GI: Soft
Neuro: Awake and Alert
Psych: Calm and Apparent Dementia
Data Reviewed
-
Total Time Spent with Patient (in minutes): 45
Labs: Labs Reviewed by me (White count remains normal at 8.1 hemoglobin stable 13.4 BUN 22 creatinine 1.0 at baseline/urinalysis more than 100 per high-power field white cells)
[2024-03-07] MEDS: NAMENDA 10 MG PO (09:23)
[2024-03-07] MEDS: HEPARIN 5000 UNITS SC (09:23)
--- NOTE | 2024-03-07 12:51 | CON.ID ---
Consultation
-
Date/Time Consultation Requested: 03/06/24 23:12
Date/Time Consultation Performed: 03/07/24 12:52
Requesting Provider: Dr Vaca
Performing Provider: Dr Shaikh
Reason for Consultation: UTI - possible relapse
Chief Complaint / Past History
Chief Complaint
dysuria
History of Present Illness
Mr Parmar is a 73 year old male with neurogenic bladder doing straight caths, sacral wound who presents here for purulent urine x24 hours and difficulty initiation stream; no fevers or chills. No nausea, vomiting or abdominal pain. Of note with
recent diagnosis of UTI due to Pseudomonas, quinolone resistant, s/p cefepime x2 weeks. He completed the course about 1 week ago. has been diligent about doing and recording straight caths - brings in a log. Does note that had difficulties
sunday and no successful caths that day, since being in the ER nurses have showed her the procedure and she feels more confident in doing it.
Since arrival here this visit no kesha fevers, bp stable, wbc 8.1, no left shift, cr 1.0, ua >100 wbc/hpf, / urine culture pending, had a dose of cefepime, ID is consulted for assistance with management.
Past History
Additional Past Medical History:
posterior cortical atrophy (left-sided weakness, sensory deficit, visual deterioration), neurogenic bladder who straight caths, reactive airway disease, BPH status post TURP, IBS, fatty liver, sacral wound
Additional Past Surgical History:
TURP
Allergy History:
tamsulosin [From Flomax] Allergy (Verified 02/14/24 18:24)
Nightmares
benzo Allergy (Uncoded 03/06/24 15:07)
Unknown
Medications Reviewed: Yes
Social History
Tobacco: Non-Smoker
Alcohol: None
Drug: None
Family History
Family History: Not Pertinent
Review of Systems
Review of Systems
General: Negative Fever or Chills
All systems: All other systems were reviewed and were negative
Vital Signs
Temp Pulse Resp BP Pulse Ox
97.7 F 57 14 116/44 99
03/07/24 07:48 03/07/24 12:25 03/07/24 12:25 03/07/24 12:25 03/07/24 12:38
Physical Exam
Physical Exam
Constitutional: No Acute Distress
Cardiovascular: Regular Rate and S1/S2; Negative Murmur or Rub
Pulmonary: Clear and Symmetric; Negative Wheezes, Rales or Rhonchi
Gastrointestinal: Soft, Non Tender, Non Distended and Normal Bowel Sounds
Genito-Urinary: Negative CVA Tenderness
Skin: Warm and Dry; Negative Rash or Jaundice
Lab / Diagnostic Study Results
03/07/24 05:26
03/07/24 05:59
Abs Immat Gran (auto) 0.0 10^3/uL (0-0.05) 03/07/24 05:26
Absolute Neuts (auto) 4.5 10^3/uL (1.4-6.5) 03/07/24 05:26
Absolute Lymphs (auto) 2.3 10^3/uL (1.2-3.4) 03/07/24 05:26
Absolute Monos (auto) 0.7 10^3/uL (0.1-0.6) H 03/07/24 05:26
Absolute Basos (auto) 0.1 10^3/uL (0-0.2) 03/07/24 05:26
Immature Gran % 0.4 % (0-0.5) 03/07/24 05:26
Neutrophils % 55.6 % (42.2-75.2) 03/07/24 05:26
Lymphocytes % 27.7 % (20.5-51.1) 03/07/24 05:26
Monocytes % 8.2 % (1.7-9.3) 03/07/24 05:26
Eosinophils % 7.1 % (0-6) H 03/07/24 05:26
Basophils % 1.0 % (0-2) 03/07/24 05:26
Lactic Acid Cancelled 03/07/24 02:45
Ur Squamous Epith Cells 0-2 /LPF (Few) 03/06/24 20:45
Microbiology Results
Micro:
03/06/24 22:58 Blood Culture - Pending
Blood/Venous
03/06/24 22:58 Blood Culture - Pending
Blood/Venous
03/06/24 20:45 Urine Culture - Pending
Urine
Assessment / Plan
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
Neurogenic Bladder
- ua with gross pyuria
- urine culture in progress - likely the same Pseudomonas, though another isolate is possible
- asking for discharge
- reviewed straight caths vs boss - given that now feels comofortable doing the procedure and is so diligent would continue with QID straight caths
- based on previous sensitivities and urine culture zosyn is most likely to be effective; discussed placement however feels more comfortable at home; knows they can represent if QID dosing becomes too difficult to manage
- labs to be sent to my office weekly
- given difficulties with transportation will defer office follow up
--- NOTE | 2024-03-07 13:43 | CM ---
Addendum entered by Elisabeth Gallagher RN 03/07/24 17:48:
[facility] has confirmed acceptance. [facility] has confirmed acceptance. Jose LUCSAengineering production liaison from [facility] providing bedside teaching.
Addendum entered by Elisabeth Gallagher RN 03/07/24 15:40:
CM sent KETURAH referral via [facility] to [facility].
Addendum entered by Elisabeth Gallagher RN 03/07/24 15:29:
CM confirmed with Mariam at [facility] that they will have the medication available for 8pm dose. [facility] has been updated that patient is being discharged today. has been updated.
Hospitalist updated with plan.
Addendum entered by Elisabeth Gallagher RN 03/07/24 14:19:
CM spoke with Jose at [facility]. Patient's is requesting that medication be delivered tonight as she has cared for his PICC in the past with the assistance of Eliezer. CM sent scripts clinical to [facility]. CM awaiting call back for
confirmation of delivery of medication.
[facility] stated that they have IV nurse availability for Sunday.
Original Note:
CM was consulted for discharge planning. CM updated [facility] with new IV abts script. CM updated [facility] with need for home IV ABTS.
[2024-03-07] MEDS: ZOSYN 100 IV ×2 (14:00→19:49)
[2024-03-07] MEDS: NAMENDA PO (20:01)
[2024-03-07] MEDS: HEPARIN SC (20:01)
== END 2024-03-07 21:15 | disposition home health service (06) | DRG 699 ==
LOC: ED 23:16
PROVIDERS: Emergency Medicine; Nurse Practitioner; ADMITTING PHYSICIAN Hospitalist; ATTENDING PHYSICIAN Internal Medicine; CONSULT PHYSICIAN Student in an Organized Health Care Education/Training Program; EMERGENCY PHYSICIAN Emergency Medicine; FAMILY PHYSICIAN Internal Medicine
DX: T83.518A Infection and inflammatory reaction due to other urinary catheter, initial encounter (principal); G81.94 Hemiplegia, unspecified affecting left nondominant side; N39.0 Urinary tract infection, site not specified; Z16.23 Resistance to quinolones and fluoroquinolones; R39.15 Urgency of urination; N31.9 Neuromuscular dysfunction of bladder, unspecified; J45.909 Unspecified asthma, uncomplicated; N40.0 Benign prostatic hyperplasia without lower urinary tract symptoms; G31.89 Other specified degenerative diseases of nervous system; B96.5 Pseudomonas (aeruginosa) (mallei) (pseudomallei) as the cause of diseases classified elsewhere; N41.8 Other inflammatory diseases of prostate; K58.0 Irritable bowel syndrome with diarrhea; K76.0 Fatty (change of) liver, not elsewhere classified; Y84.6 Urinary catheterization as the cause of abnormal reaction of the patient, or of later complication, without mention of misadventure at the time of the procedure; Y92.9 Unspecified place or not applicable; Z66 Do not resuscitate; Z88.8 Allergy status to other drugs, medicaments and biological substances; Z90.79 Acquired absence of other genital organ(s); Z87.440 Personal history of urinary (tract) infections
CPT/HCPCS: 51701; 51798; 80053; 81003; 81015; 83605; 85025; 87040; 87077; 87086; 87186; 99285

== ENCOUNTER 2024-03-24 20:01 | Inpatient (IN) | payer MEDICARE, OTHER, SELFPAY ==
[2024-03-24] VITALS (9 sets, daily range): BP systolic 100–136; BP diastolic 71–113; BMI 29.3
[2024-03-24 12:45] LABS: % Basophils 0.4 % (0-2); % Eosinophils 0.9 % (0-6); % Immature Granulocytes 0.5 % (0-0.5); % Lymphocytes 7.5 % (20.5-51.1); % Monocytes 7.4 % (1.7-9.3); % Neutrophils 83.3 % (42.2-75.2); Absolute Basophils 0.1 10^3/uL (0-0.2); Absolute Eosinophils 0.2 10^3/uL (0-0.7); Absolute Immature Granulocytes 0.1 10^3/uL (0-0.05); Absolute Lymphocytes 1.3 10^3/uL (1.2-3.4); Absolute Monocytes 1.2 10^3/uL (0.1-0.6); Absolute Neutrophils 13.9 10^3/uL (1.4-6.5); Hematocrit 39.9 % (39.0-52.0); Hemoglobin 14.2 g/dL (13.0-18.0); Mean Corp Hgb Conc. 35.6 g/dL (33.0-37.0); Mean Corpuscular Hgb 30.9 pg (27.0-31.0); Mean Corpuscular Volume 86.9 fL (80.0-94.0); Mean Platelet Volume 10.2 fL (7.4-10.4); Nucleated Red Blood Cells % 0 % (-); Platelet Count 251 10^3/uL (130-400); Red Blood Cell Count 4.59 10^6/uL (4.70-6.10); Red Cell Dist. Width 12.5 % (11.5-14.5); White Blood Cell Count 16.7 10^3/uL (4.8-10.8)
[2024-03-24 12:58] LABS: Lactic Acid 0.7 mmol/L (0.7-2.0)
[2024-03-24 13:01] LABS: ALT (SGPT) 23 U/L (0-50); AST (SGOT) 25 U/L (17-59); Albumin 3.9 g/dl (3.5-5.0); Alkaline Phosphatase 63 U/L (38-126); Blood Urea Nitrogen 27 mg/dl (9-20); Calcium 8.9 mg/dl (8.4-10.2); Carbon Dioxide 21 mmol/L (22-30); Chloride 107 mmol/L (98-107); Estimated Creatinine Clearance 66 ml/min; Glucose 103 mg/dl (70-99); Potassium 4.7 mmol/L (3.5-5.1); Sodium 137 mmol/L (135-145); Total Bilirubin 0.8 mg/dl (0.2-1.3); Total Protein 6.7 g/dl (6.3-8.2); eGFR > 60.00
--- NOTE | 2024-03-24 13:56 | ED.GENMED ---
History of Present Illness
General
Chief Complaint: Urinary Symptoms
Source: patient and family
Exam Limitations: clinical condition
Time Seen by Provider: 03/24/24 13:16
Travel History
Have you had any contact with someone who has COVID-19?: No
Do you have any symptoms of coronavirus? Fever > 100 degrees, chills, cough, shortness of breath, sore throat, loss of taste or smell, muscle aches, or headache?: No
History of Present Illness
History of Present Illness:
73-year-old male with history of posterior cortical atrophy and neurogenic bladder presents with painful urination and low-grade fevers. Patient is also been very weak. He has had Pseudomonas in his urine in the past and is followed by infectious
disease. On my evaluation patient just feels weak. He denies current abdominal pain. No vomiting.
Past History
Past History
ED Past Medical History: Other (Posterior cortical atrophy, UTI, Pseudomonas in the urine, BPH)
Social History
Tobacco: Non-smoker
Alcohol: None
Drug: None
Personal:
Living: with family
Employment: Retired
Phy Exam
Physical Exam
Physical Exam:
CONSTITUTIONAL Patient alert and oriented to person, place and time. Well-appearing. Vital signs reviewed.
HEAD atraumatic, normocephalic.
EYES eyelids normal to inspection, Extraocular muscles intact, Conjunctiva normal, Sclera normal.
NECK normal range of motion, Trachea midline, no jugular venous distention.
RESPIRATORY CHEST No respiratory distress noted, Chest expansion equal, Bilateral breath sounds clear.
CARDIOVASCULAR regular rate and rhythm, Heart sounds normal.
ABDOMEN abdomen nontender, Bowel sounds normal. No distention.
UPPER EXTREMITY \\no cyanosis, no edema.
LOWER EXTREMITY no cyanosis, no edema.
NEURO mildly rigid upper extremities. Speech is slow and deliberate with intermittent word finding difficulty.
SKIN skin warm, dry, and normal in color.
PSYCHIATRIC patient oriented to person place and time, Normal affect.
Course
Orders/Labs/Results
Orders:
Orders
03/24/24 12:35
Complete Blood Count/With Diff Urgent
Comprehensive Metabolic Panel Urgent
Lactic Acid Urgent
Blood Culture Urgent
CHARANJIT Source: Blood/Venous
Specimen Description:
03/24/24 14:21
Urinalysis Reflex To Culture Urgent
Date Specimen was Collected: 03/24/24
Time Specimen was Collected: 14:20
Urine Microscopic Reflex Cult Urgent
Urine Culture Urgent
CHARANJIT Source: U
Specimen Description:
Date Specimen was Collected: 03/24/24
Time Specimen was Collected: 14:20
03/24/24 15:57
CR Chest - 2 Views Urgent
Comment:
Reason For Exam: fever
03/24/24 17:31
Vital Signs- Treatment ONCE
Frequency: Once
03/24/24 19:46
Admit/Transfer Patient As Directed
Co-Sign Provider:
Level of Care: Inpatient admission
Assign to:: Medical/Surgical
Physician / Group: codi
Diagnosis: uti
Reason for Hospitalization: uti
Expected length of stay greater than two midnights?: Yes
ELOS- Estimated Length of Stay in days: 2
I certify the patient meets the requirements for IP care: Yes
03/24/24 19:48
Code Status As Directed
Resuscitation Status: Do not resuscitate
Reached after discussion with pt or family/Healthcare POA: Yes
DNR Bracelet Application ONCE
03/24/24 20:00
Cefepime HCl [Maxipime] 2,000 mg IV Q12H
Abnormal Lab Results
03/24/24 03/24/24
12:35 14:21
WBC 16.7 H 10^3/uL
(4.8-10.8)
RBC 4.59 L 10^6/uL
(4.70-6.10)
Abs Immat Gran (auto) 0.1 H 10^3/uL
(0-0.05)
Absolute Neuts (auto) 13.9 H 10^3/uL
(1.4-6.5)
Absolute Monos (auto) 1.2 H 10^3/uL
(0.1-0.6)
Neutrophils % 83.3 H %
(42.2-75.2)
Lymphocytes % 7.5 L %
(20.5-51.1)
Carbon Dioxide 21 L mmol/L
(22-30)
BUN 27 H mg/dl
(9-20)
Glucose 103 H mg/dl
(70-99)
Ur Occult Blood Reflex 1+ A
(Negative)
Leukocyte Esterase Rfl 1+ A
(Negative)
03/24/24 12:35
03/24/24 12:35
Vital Signs
Initial and Last Documented VS:
Initial Vital Signs
Temp Pulse Resp BP Pulse Ox
98.3 F 82 16 133/85 93
03/24/24 12:30 03/24/24 12:30 03/24/24 12:30 03/24/24 12:30 03/24/24 12:30
Last Documented Vital Signs
Temp Pulse Resp BP Pulse Ox
99.4 F 64 16 115/87 93
03/24/24 18:20 03/24/24 21:00 03/24/24 21:00 03/24/24 21:00 03/24/24 18:19
MDM/Problems Addressed
MDM/Problems Addressed:
Fever, leukocytosis, possible UTI
*Radiology
Radiology exam reviewed: preliminary read by ED provider
*Pulse Oximetry
Patient hypoxic: no
*Critical Care Note
Total Time (30-74mins, 75-104mins- exclusive of procedures): Not Applicable
Data Reviewed
Source: patient
Prescriptions/Medications Considered But Not Given:
Consider antibiotics but urinalysis is grossly unremarkable with the exception of 1+ leuk esterase. Await cultures.
Patient Management
Discussion with other providers: Hospitalist and Talk Show Host (Case also discussed infectious disease)
Escalation/DeEscalation of care consider admission/obs:
Patient too weak to go home. Low-grade fevers. Leukocytosis noted. Blood cultures and urine culture pending.
ED Attending Note
-
Portions of this chart may have been created with voice recognition software.� Occasional wrong word or��sound alike� substitutions may have occurred due to the inherent limitations of voice recognition software.
Discharge Plan
Departure
Patient Disposition: Admit
Date of Disposition: 03/24/24
Time of Disposition: 19:14
Admit to: Med/Surg
Presentation/result/management discussed w/ accepting MD/DO: Hospitalist
Discharge Problem:
Weakness, Leukocytosis
Interventions
Interventions:
*Risk Screen - Suicide Last Done: 03/24/24 12:31
*General Assessment Last Done: 03/24/24 12:31
*Neglect/Abuse Screening Last Done: 03/24/24 12:31
*ED COVID-19 Vaccine History Last Done: 03/24/24 12:31
ED-Male Genitourinary Assessment Last Done: 03/24/24 12:32
[2024-03-24 14:31] LABS: Urine Albumin Trace (Neg - Trace); Urine Bilirubin Negative (Negative); Urine Character Clear (Clear); Urine Color Yellow; Urine Glucose Negative (Negative); Urine Ketone Negative (Negative); Urine Leukocyte 1+ (Negative); Urine Nitrite Negative (Negative); Urine Occult Blood 1+ (Negative); Urine Urobilinogen Negative (Neg - 1+)
[2024-03-24 15:27] LABS: Urine Squamous Cell 0-2 /LPF (Few)
[2024-03-24 15:28] LABS: Urine Red Blood Cell 0-2 /HPF (0-2)
--- NOTE | 2024-03-24 19:50 | HPS.HSE ---
Family Physician
-
Family Physician: Francisco Ibanez
Chief Complaint
-
urinary symptoms
History of Present Illness
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
over the past few days associated with weakness and confusion and chills today.
Patient no longer requires regular self-catheterization and only needs it on occasion. He was self catheterized yesterday.
He was recently treated for urinary tract infection with Zosyn through PICC line which he completed 6 days ago. While on Zosyn he developed significant diarrhea and had to terminate the antibiotics 2 days early. He has still been having occasional
increased frequency loose stools but not watery at this time.
Medical History
Past Medical History
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
Past Surgical History: Reports None
Social History
Tobacco: Non-smoker
Alcohol: None
Drug: None
Family History
Family History: Not pertinent
Allergies / Home Medications
Allergies reflects when Allergies were last updated in [facility].
Home Medications with original date entered in [facility]
Allergy/Medication List:
Allergies
Allergy/AdvReac Type Severity Reaction Status Date / Time
tamsulosin [From Flomax] Allergy Nightmares Verified 02/14/24 18:24
benzo Allergy Unknown Uncoded 03/06/24 15:07
Home Medications
memantine 10 mg tablet 10 mg PO BID Mental health/sleep 09/09/20
methenamine hippurate 1 gram tablet 1 g PO BID Urinary Issue 02/14/24
mirtazapine 7.5 mg tablet 7.5 mg PO HS DEMENTIA 02/14/24
Imodium 1 dose PO DAILYPRN PRN diarrhea 03/24/24
Probiotic Gummy 1 gummy PO DAILY 03/24/24
cranberry 500 mg capsule 1,000 mg PO NOON 03/24/24
Review of Systems
-
History Source: Patient
A 12 point ROS was completed and negative except as noted: Yes
Constitutional: Reports No Symptoms
EENT: Reports No Symptoms
Respiratory: Reports No Symptoms
Cardiac: Reports No Symptoms
Abdomen/GI: Reports No Symptoms
: Reports See HPI
Musculoskeletal: Reports No Symptoms
Skin: Reports No Symptoms
Neurological: Reports No Symptoms
Endocrine: Reports No Symptoms
Hematologic/Lymphatic: Reports No Symptoms
Psych: Reports No Symptoms
Physical Exam
Vital Signs
Vital Signs
Temp Pulse Resp BP Pulse Ox
99.4 F 73 18 105/71 92
03/24/24 18:20 03/24/24 16:00 03/24/24 16:00 03/24/24 16:00 03/24/24 15:15
Physical Exam
General: Well Developed, Well Nourished and No Apparent Distress
HEENT: NormoCephalic, Moist mucous membranes and Atraumatic
Respiratory: Clear
Cardiac: S1/S2 and Regular Rhythm; No Murmur or Rub
GI: Soft, Non Tender, Non Distended and Normal Bowel Sounds; No Organomegaly
Rectal: Deferred by Provider
Musculoskeletal: No Clubbing, No Cyanosis and No Edema
Skin: No Rash
Neuro: Nonfocal/grossly intact
Laboratory Results
-
03/24/24 12:35
03/24/24 12:35
Laboratory Results
Lactic Acid 0.7 mmol/L (0.7-2.0) 03/24/24 12:35
Total Bilirubin 0.8 mg/dl (0.2-1.3) 03/24/24 12:35
AST 25 U/L (17-59) 03/24/24 12:35
ALT 23 U/L (0-50) 03/24/24 12:35
Alkaline Phosphatase 63 U/L (38-126) 03/24/24 12:35
Data Reviewed
-
Lab Data: Labs Reviewed by me
Old Records: Reviewed
Impression/Plan
-
IMPRESSION:
PLAN:
# Recurrent UTI secondary to straight catheterizations
# History of neurogenic bladder
# History of Pseudomonas UTI
-UA shows 6-10 WBC, not too abnormal but could be sterilized from recent antibiotic 6 days ago
-Urine culture, blood cultures
-Cefepime this time given recent diarrhea on Zosyn
-ID consulted
-If diarrhea reoccurs on antibiotics check C. difficile
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
-Continue memantine
Sacral wound
CKD 3A
-Renal function at baseline
IBS
Reactive airway disease
BPH status post TURP
Fatty liver
Anxiety/depression
-Continue mirtazapine
DNR/DNI
DVT prophylaxis�heparin
Regular diet
[2024-03-24] MEDS: MAXIPIME 2000 MG IV (23:22)
[2024-03-24] MEDS: HEPARIN 5000 UNITS SC (23:24)
[2024-03-24] MEDS: STERILE WATER FOR INJECTION 10 ML IV (23:24)
[2024-03-24] MEDS: NAMENDA 10 MG PO (23:24)
[2024-03-24] MEDS: REMERON 7.5 MG PO (23:24)
[2024-03-25 05:24] LABS: % Basophils 0.6 % (0-2); % Eosinophils 3.4 % (0-6); % Immature Granulocytes 0.4 % (0-0.5); % Lymphocytes 21.5 % (20.5-51.1); % Monocytes 7.7 % (1.7-9.3); % Neutrophils 66.4 % (42.2-75.2); Absolute Basophils 0.1 10^3/uL (0-0.2); Absolute Eosinophils 0.4 10^3/uL (0-0.7); Absolute Lymphocytes 2.2 10^3/uL (1.2-3.4); Absolute Monocytes 0.8 10^3/uL (0.1-0.6); Absolute Neutrophils 6.8 10^3/uL (1.4-6.5); Hematocrit 37.3 % (39.0-52.0); Hemoglobin 13.2 g/dL (13.0-18.0); Mean Corp Hgb Conc. 35.4 g/dL (33.0-37.0); Mean Corpuscular Hgb 31.1 pg (27.0-31.0); Mean Corpuscular Volume 87.8 fL (80.0-94.0); Nucleated Red Blood Cells % 0 % (-); Platelet Count 219 10^3/uL (130-400); Red Blood Cell Count 4.25 10^6/uL (4.70-6.10); Red Cell Dist. Width 12.4 % (11.5-14.5); White Blood Cell Count 10.3 10^3/uL (4.8-10.8)
[2024-03-25 05:43] LABS: ALT (SGPT) 19 U/L (0-50); AST (SGOT) 20 U/L (17-59); Albumin 3.3 g/dl (3.5-5.0); Alkaline Phosphatase 59 U/L (38-126); Blood Urea Nitrogen 26 mg/dl (9-20); Calcium 8.6 mg/dl (8.4-10.2); Carbon Dioxide 19 mmol/L (22-30); Chloride 110 mmol/L (98-107); Estimated Creatinine Clearance 66 ml/min; Glucose 99 mg/dl (70-99); Potassium 4.4 mmol/L (3.5-5.1); Sodium 136 mmol/L (135-145); Total Bilirubin 0.7 mg/dl (0.2-1.3); Total Protein 6.1 g/dl (6.3-8.2); eGFR > 60.00
[2024-03-25 08:55] VITALS: BP 143/66
[2024-03-25] MEDS: NAMENDA 10 MG PO ×2 (08:58→20:14)
[2024-03-25] MEDS: HEPARIN 5000 UNITS SC ×2 (08:58→20:14)
[2024-03-25] MEDS: MAXIPIME 2000 MG IV ×3 (08:59→23:09)
[2024-03-25] MEDS: STERILE WATER FOR INJECTION 10 ML IV ×3 (09:00→23:09)
--- NOTE | 2024-03-25 09:39 | CON.ID ---
Consultation
-
Date/Time Consultation Requested: March 24, 2024 [id number]
Date/Time Consultation Performed: March 25, 2024 [id number]
Requesting Provider: Dr. Agnieszka Hogue
Performing Provider: Dr. Sirisha Lloyd
Reason for Consultation: Recurrent UTI
Chief Complaint / Past History
Chief Complaint
Pain with urination
History of Present Illness
73-year-old male with neurogenic bladder who straight catheterizes as needed, who presented to the ER March 24 with third episode of urinary symptoms/hospitalization over the past 2 months. In February he was treated with a course of cefepime for
Pseudomonas UTI. On March 07, again urine culture grew Pseudomonas and he was seen by Dr. Shaikh who recommended Zosyn 4.5 g IV every 6 hours x 14 d He completed 12 days instead of 14 days due to severe diarrhea which improved off of the abx.
Per , she noted decreased urine output and therefore straight cath him with 175cc dark urine on Sunday. Pt complained of dysuria. She straight cath him again on Sunday. There was mild confusion and low grade temp. She brought him to the ED
yesterday. His white count was 16.7. Urinalysis 1+ leukocyte esterase 6-10 white blood cells. Urine culture pending. He is currently on cefepime. Pt report no further dysuria. No flank pain. Had brief episode of abdominal pain on Sunday after
eating ham sandwich. No chills.
Past History
Additional Past Medical History:
Reactive airway disease
BPH status post TURP
Neurogenic bladder� straight catheterizations as needed
CKD3
Posterior cortical atrophy with left-sided weakness, sensory deficit, visual deterioration
Fatty liver
Sacral wound
IBS
Allergy History:
diazepam Allergy (Verified 03/24/24 22:11)
BENZODIAZEPINES
tamsulosin [From Flomax] Allergy (Verified 02/14/24 18:24)
Nightmares
Medications Reviewed: Yes
Current Antibiotics:
Cefepime
Social History
Tobacco: Non-Smoker
Alcohol: None
Drug: None
Personal:
Family History
Family History: Not Pertinent
Review of Systems
Review of Systems
General: Change in Appetite; Negative Chills
HEENT: Negative Stiff Neck, Sinus Problems or Headache
Cardiovascular: Negative Chest Pain or Dyspnea
Respiratory: Negative Cough
Gasteroenterology: Negative Nausea or Vomiting
Genital / Urological: Negative Flank Pain
Endocrine: Weakness
Neurological: Negative Headache or Dizziness
All systems: All other systems were reviewed and were negative
Vital Signs
Temp Pulse Resp BP Pulse Ox
97.4 F 54 15 143/66 96
03/25/24 08:55 03/25/24 08:55 03/25/24 08:55 03/25/24 08:55 03/25/24 08:55
Physical Exam
Physical Exam
Constitutional: No Acute Distress and Comfortable
Eyes: Pupils Round and No Conjunctival Hemorrhage
Cardiovascular: Regular Rate and S1/S2
Pulmonary: Clear
Gastrointestinal: Soft, Non Tender, Non Distended and Normal Bowel Sounds
Genito-Urinary: Negative Chanel or CVA Tenderness
Extremities: Negative Edema
Neurological: Awake
Lab / Diagnostic Study Results
03/25/24 05:18
03/25/24 05:18
Abs Immat Gran (auto) 0.0 10^3/uL (0-0.05) 03/25/24 05:18
Absolute Neuts (auto) 6.8 10^3/uL (1.4-6.5) H 03/25/24 05:18
Absolute Lymphs (auto) 2.2 10^3/uL (1.2-3.4) 03/25/24 05:18
Absolute Monos (auto) 0.8 10^3/uL (0.1-0.6) H 03/25/24 05:18
Absolute Basos (auto) 0.1 10^3/uL (0-0.2) 03/25/24 05:18
Immature Gran % 0.4 % (0-0.5) 03/25/24 05:18
Neutrophils % 66.4 % (42.2-75.2) 03/25/24 05:18
Lymphocytes % 21.5 % (20.5-51.1) 03/25/24 05:18
Monocytes % 7.7 % (1.7-9.3) 03/25/24 05:18
Eosinophils % 3.4 % (0-6) 03/25/24 05:18
Basophils % 0.6 % (0-2) 03/25/24 05:18
Lactic Acid 0.7 mmol/L (0.7-2.0) 03/24/24 12:35
Ur Squamous Epith Cells 0-2 /LPF (Few) 03/24/24 14:21
Microbiology Results
Micro:
03/24/24 14:21 Urine Culture - Pending
Urine
03/24/24 12:35 Blood Culture - Pending
Blood/Venous
03/24/24 CXR: No evidence of consolidation to suggest pneumonia.
Assessment / Plan
# Dysuria, weakness, mild confusion
- Recently completed 12 days of Zosyn 4.5g IV q6h (03/18/24) for Pseudomonas UTI
- 03/24 UA only 6-10 wbc
- CXR neg.
- Leukocytosis quickly resolved.
-await bcx, Ucx
- Continue cefepime for now.
Care Review
Plan reviewed with: Physician (Dr. Cifuentes)
--- NOTE | 2024-03-25 10:40 | W.PN.HOSP.TC ---
Today's Communication/Plan
-
IV Cefepime for now
F/U cultures
F/U ID recs
Assessment / Plan
Assessment / Plan
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
over the past few days associated with weakness and confusion and chills today.
He was recently treated for urinary tract infection with Zosyn through PICC line which he completed 6 days ago. While on Zosyn he developed significant diarrhea and had to terminate the antibiotics 2 days early. He has still been having occasional
increased frequency loose stools but not watery at this time.
PLAN:
# Recurrent UTI secondary to straight catheterizations
# History of neurogenic bladder
# History of Pseudomonas UTI
-UA shows 6-10 WBC, not too abnormal but could be sterilized from recent antibiotic 6 days ago
-Urine culture, blood cultures
-Cefepime this time given recent diarrhea on Zosyn
-ID consulted
-If diarrhea reoccurs on antibiotics check C. difficile
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
-Continue memantine
Sacral wound
CKD 3A
-Renal function at baseline
IBS
Reactive airway disease
BPH status post TURP
Fatty liver
Anxiety/depression
-Continue mirtazapine
DNR/DNI
DVT prophylaxis�heparin
Regular diet
Anticipated Discharge: 24 - 48 hours
Subjective/Interval History
-
Date of Service: March 25, 2024
still confused per family
patient without active complaints
ate breakfast this morning
Objective Data
-
Labs:
Laboratory Results
03/25/24
05:18
WBC 10.3
Hgb 13.2
Hct 37.3 L
Plt Count 219
Sodium 136
Potassium 4.4
Chloride 110 H
Carbon Dioxide 19 L
BUN 26 H
Creatinine 1.1
Glucose 99
Calcium 8.6
Total Bilirubin 0.7
AST 20
ALT 19
Alkaline Phosphatase 59
Vital Signs:
Vital Signs
Temp Pulse Resp BP Pulse Ox
97.4 F 54 15 143/66 96
03/25/24 08:55 03/25/24 08:55 03/25/24 08:55 03/25/24 08:55 03/25/24 08:55
Review of Systems
-
History Source: Patient
All other systems: Reviewed and negative
Physical Exam
-
General: No Apparent Distress
HEENT: Normocephalic
Respiratory: Clear to Auscultation
Cardiac: Regular Rhythm
GI: Soft
Neuro: Awake and Alert
Psych: Calm and Apparent Dementia
Data Reviewed
-
Diagnostic Radiology: Report Reviewed by me
Labs: Labs Reviewed by me
[2024-03-25 18:30] VITALS: BP 135/66
[2024-03-25 18:31] VITALS: BMI 29.2
[2024-03-25] MEDS: REMERON 7.5 MG PO (20:22)
[2024-03-25 23:30] VITALS: BP 154/65
[2024-03-26 06:24] LABS: % Basophils 0.9 % (0-2); % Eosinophils 6.9 % (0-6); % Immature Granulocytes 0.3 % (0-0.5); % Lymphocytes 17.5 % (20.5-51.1); % Neutrophils 66.4 % (42.2-75.2); Absolute Basophils 0.1 10^3/uL (0-0.2); Absolute Eosinophils 0.5 10^3/uL (0-0.7); Absolute Lymphocytes 1.3 10^3/uL (1.2-3.4); Absolute Monocytes 0.6 10^3/uL (0.1-0.6); Absolute Neutrophils 5.1 10^3/uL (1.4-6.5); Hematocrit 41.8 % (39.0-52.0); Hemoglobin 14.4 g/dL (13.0-18.0); Mean Corp Hgb Conc. 34.4 g/dL (33.0-37.0); Mean Corpuscular Hgb 30.8 pg (27.0-31.0); Mean Corpuscular Volume 89.5 fL (80.0-94.0); Mean Platelet Volume 10.5 fL (7.4-10.4); Nucleated Red Blood Cells % 0 % (-); Platelet Count 241 10^3/uL (130-400); Red Blood Cell Count 4.67 10^6/uL (4.70-6.10); Red Cell Dist. Width 12.4 % (11.5-14.5); White Blood Cell Count 7.7 10^3/uL (4.8-10.8)
[2024-03-26 07:30] VITALS: BP 145/99
[2024-03-26] MEDS: HEPARIN 5000 UNITS SC ×2 (07:56→19:51)
[2024-03-26] MEDS: NAMENDA 10 MG PO ×2 (07:57→19:52)
[2024-03-26] MEDS: STERILE WATER FOR INJECTION 10 ML IV ×3 (07:57→23:44)
[2024-03-26] MEDS: MAXIPIME 2000 MG IV ×3 (07:57→23:44)
[2024-03-26 08:04] LABS: Blood Urea Nitrogen 25 mg/dl (9-20); Calcium 9.2 mg/dl (8.4-10.2); Carbon Dioxide 24 mmol/L (22-30); Chloride 105 mmol/L (98-107); Estimated Creatinine Clearance 55 ml/min; Glucose 101 mg/dl (70-99); Potassium 4.3 mmol/L (3.5-5.1); Sodium 140 mmol/L (135-145); eGFR 57.29
--- NOTE | 2024-03-26 14:22 | W.PN.HOSP.TC ---
Today's Communication/Plan
-
need sensitivities for pseudomonas
Assessment / Plan
Assessment / Plan
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
over the past few days associated with weakness and confusion and chills today.
He was recently treated for urinary tract infection with Zosyn through PICC line which he completed 6 days ago. While on Zosyn he developed significant diarrhea and had to terminate the antibiotics 2 days early. He has still been having occasional
increased frequency loose stools but not watery at this time.
History of neurogenic bladder with Recurrent UTI secondary to straight catheterizations--pseudomonas in urine culture--same as previous infections--apprec ID--await sensitivities--follow cultures--cont cefepime
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
Sacral wound (POA)--wound care
CKD 3A--Renal function at baseline
IBS
Reactive airway disease
BPH status post TURP
Fatty liver
Anxiety/depression--Continue mirtazapine
code status --DNR/DNI
DVT prophylaxis�heparin
Anticipated Discharge: Within 24 hours
Subjective/Interval History
-
Date of Service: March 26, 2024
pt doing OK
Objective Data
-
Labs:
Laboratory Results
03/26/24 03/26/24
05:59 07:14
WBC 7.7
Hgb 14.4
Hct 41.8
Plt Count 241
Sodium Cancelled 140
Potassium Cancelled 4.3
Chloride Cancelled 105
Carbon Dioxide Cancelled 24
BUN Cancelled 25 H
Creatinine Cancelled 1.3
Glucose Cancelled 101 H
Calcium Cancelled 9.2
Vital Signs:
max temp for 24 hours
03/25/24
23:30
Temp 98.1 F
Vital Signs
Temp Pulse Resp BP Pulse Ox
97.6 F 103 17 145/99 95
03/26/24 07:30 03/26/24 07:30 03/26/24 07:30 03/26/24 07:30 03/26/24 07:30
I&O
03/25/24 03/26/24 03/27/24
06:59 06:59 06:59
Intake Total 1450 / 1450
Balance 1450 / 1450
Review of Systems
-
All other systems: Reviewed and negative
Physical Exam
-
General: Well Developed, Well Nourished and No Apparent Distress
HEENT: Normocephalic and Atraumatic
Respiratory: Clear to Auscultation; Negative Wheezes or Rhonchi
Cardiac: Regular Rhythm and S1/S2; Negative Murmur
GI: Soft, Nontender, Nondistended and Normal Bowel Sounds
Musculoskeletal: No Clubbing, No Cyanosis and No Edema
Neuro: Negative Nonfocal/Grossly Intact (left sided hemiparesis--)
Psych: Apparent Dementia and Other (flat affect)
--- NOTE | 2024-03-26 15:10 | CM ---
Addendum entered by Mala Barnett 03/26/24 16:09:
referral sent to [facility] pending acceptance.
Original Note:
Patient seen at bedside with physician, patient's spouse and patient's caregiver. Patient lives with spouse in a 2 story home, with elevator to 2nd floor and ramp into home, patient has a w/c and transport chair in home, patient has assistance
with adl's from spouse and daughter. Patient has a caregiver for 18 hours for 3 days. Patient has had in the past [facility] and [facility]. Current caregiver is private pay. Patient has had [facility] for home IV antibiotics and [facility]
for access per patient . Patient has also had [facility] for pt/ot and nursing following the last hospitalization. In the past patient was current with Palliative care from [facility]. Patient has a prescription
plan and patient uses [facility] pharmacy, Patient PCP is Dr. Ibanez. Patient plan is for discharge home with family and caregiver. Patient pending possible need for IV antibiotics and would chose [facility] and [facility] again. CM will continue to follow for
discharge planning needs.
Plan; Home with family, private caregivers, and watch for IV antibiotic needs.
--- NOTE | 2024-03-26 15:42 | W.PN.ID1 ---
Date of Service
Date of Service: March 26, 2024
Today's Communication
Continue cefepime.
Assessment / Plan
# Dysuria, weakness, mild confusion
- Recently completed 12 days of Zosyn 4.5g IV q6h (03/18/24) for Pseudomonas UTI
- 03/24 UA only 6-10 wbc
- CXR neg.
- Leukocytosis quickly resolved.
- Ucx: 100K Pseudomonas
- Continue cefepime 2g IVq8h pending sensitivity.
- Place [facility].
#Additional Past Medical History:
Reactive airway disease
BPH status post TURP
Neurogenic bladder� straight catheterizations as needed
CKD3
Posterior cortical atrophy with left-sided weakness, sensory deficit, visual deterioration
Fatty liver
Sacral wound
IBS
Chief Complaint
-: UTI
Subjective / Review of Systems
patient better today.
Vital Signs / Physical Exam
Vital Signs
Vital Signs
Temp Pulse Resp BP Pulse Ox
97.6 F 103 17 145/99 95
03/26/24 07:30 03/26/24 07:30 03/26/24 07:30 03/26/24 07:30 03/26/24 07:30
Physical Exam
Constitutional: No Acute Distress and Comfortable
Gastrointestinal: Soft, Non Tender and Non Distended
Genito-Urinary: Negative Chanel or CVA Tenderness
Neurological: Awake and Alert
Objective Data
Lab Data
Lab Results
03/26/24 05:59
03/26/24 07:14
Estimated Creat Clear 55 ml/min 03/26/24 07:14
Lactic Acid 0.7 mmol/L (0.7-2.0) 03/24/24 12:35
Total Bilirubin 0.7 mg/dl (0.2-1.3) 03/25/24 05:18
AST 20 U/L (17-59) 03/25/24 05:18
ALT 19 U/L (0-50) 03/25/24 05:18
Alkaline Phosphatase 59 U/L (38-126) 03/25/24 05:18
Most recent labs reviewed.
Micro Results:
03/24/24 12:35 Blood Culture - Preliminary
Blood/Venous No Growth in 48 hours- Final report to follow
03/24/24 14:21 Urine Culture - Preliminary
Urine Pseudomonas aeruginosa
03/24/24 CXR: No evidence of consolidation to suggest pneumonia.
[2024-03-26 15:45] VITALS: BP 141/58
[2024-03-26] MEDS: REMERON 7.5 MG PO (19:55)
[2024-03-26 23:20] VITALS: BP 148/97
[2024-03-27 04:46] LABS: Hematocrit 39.7 % (39.0-52.0); Hemoglobin 13.6 g/dL (13.0-18.0); Mean Corp Hgb Conc. 34.3 g/dL (33.0-37.0); Mean Corpuscular Hgb 31.1 pg (27.0-31.0); Mean Corpuscular Volume 90.6 fL (80.0-94.0); Mean Platelet Volume 11.3 fL (7.4-10.4); Platelet Count 160 10^3/uL (130-400); Red Blood Cell Count 4.38 10^6/uL (4.70-6.10); Red Cell Dist. Width 12.1 % (11.5-14.5); White Blood Cell Count 7.5 10^3/uL (4.8-10.8)
[2024-03-27 05:07] LABS: Blood Urea Nitrogen 25 mg/dl (9-20); Calcium 8.8 mg/dl (8.4-10.2); Carbon Dioxide 26 mmol/L (22-30); Chloride 107 mmol/L (98-107); Estimated Creatinine Clearance 66 ml/min; Glucose 92 mg/dl (70-99); Potassium 4.3 mmol/L (3.5-5.1); Sodium 139 mmol/L (135-145); eGFR > 60.00
[2024-03-27 07:50] VITALS: BP 135/71
[2024-03-27] MEDS: NAMENDA 10 MG PO ×2 (08:56→20:00)
[2024-03-27] MEDS: HEPARIN 5000 UNITS SC ×2 (08:57→19:59)
[2024-03-27] MEDS: MAXIPIME 2000 MG IV (08:57)
[2024-03-27] MEDS: STERILE WATER FOR INJECTION 10 ML IV (08:57)
--- NOTE | 2024-03-27 11:13 | W.PN.ID1 ---
Date of Service
Date of Service: March 27, 2024
Today's Communication
Recommend meropenem 1g IV q8h through 04/07/24.
[place] infusion sheet submitted to certified social workers in health care.
Assessment / Plan
# Increased tremors and lethargy from baseline
- Suspect side effects from high dose cefepime.
-DC cefepime
# Recurrent symptomatic Pseudomonas UTI
- Recently completed 12 days of Zosyn 4.5g IV q6h (03/18/24) for Pseudomonas UTI.
(c/o severe diarrhea on Zosyn)
- CXR neg.
- Leukocytosis quickly resolved.
- Ucx: 100K Pseudomonas, 2 strains
- Discontinue cefepime and replace with meropenem.
- Recommend meropenem 1g IV q8h through 04/07/24.
[facility] infusion sheet submitted to certified social workers in health care.
#Additional Past Medical History:
Reactive airway disease
BPH status post TURP
Neurogenic bladder� straight catheterizations as needed
CKD3
Posterior cortical atrophy with left-sided weakness, sensory deficit, visual deterioration
Fatty liver
Sacral wound
IBS
Chief Complaint
-: UTI
Subjective / Review of Systems
at bedside. Had episode of confusion last night.
He c/o more lethargic today, slept more.
Per , she noticed increased tremors from baseline.
Vital Signs / Physical Exam
Vital Signs
Vital Signs
Temp Pulse Resp BP Pulse Ox
98.2 F 56 17 135/71 96
03/27/24 07:50 03/27/24 07:50 03/27/24 07:50 03/27/24 07:50 03/27/24 07:50
Physical Exam
Constitutional: Chronically Ill
Pulmonary: Clear
Gastrointestinal: Soft, Non Tender and Non Distended
Genito-Urinary: Negative Chanel or CVA Tenderness
Neurological: Awake and Tremors (Increased jerking movements upper body)
Lines: Other (RUE midline intact)
Objective Data
Lab Data
Lab Results
03/27/24 04:25
03/27/24 04:25
Estimated Creat Clear 66 ml/min 03/27/24 04:25
Lactic Acid 0.7 mmol/L (0.7-2.0) 03/24/24 12:35
Total Bilirubin 0.7 mg/dl (0.2-1.3) 03/25/24 05:18
AST 20 U/L (17-59) 03/25/24 05:18
ALT 19 U/L (0-50) 03/25/24 05:18
Alkaline Phosphatase 59 U/L (38-126) 03/25/24 05:18
Most recent labs reviewed.
Micro Results:
03/24/24 14:21 Urine Culture - Final
Urine Pseudomonas aeruginosa
Pseudomonas aeruginosa#2
03/24/24 12:35 Blood Culture - Preliminary
Blood/Venous No Growth in 48 hours- Final report to follow
03/24/24 CXR: No evidence of consolidation to suggest pneumonia.
Care Review
Plan reviewed with: Physician (Dr. Holguin)
--- NOTE | 2024-03-27 12:04 | PTCARENOTE ---
Pt OOB to [facility] to have a BM. Pt became diaphoretic,cold, clammy and had a vagal episode. Assisted x 3 back to bed. B/P after returning to bed 155/75. Dr. Holguin aware. concerned about pt's episode. Emotional support given.
[2024-03-27] MEDS: STERILE WATER FOR INJECTION 20 ML IV ×2 (13:35→21:40)
[2024-03-27] MEDS: MERREM 1000 MG IV ×2 (13:35→21:40)
--- NOTE | 2024-03-27 14:42 | CM ---
Patient for discharge today held due to change in medication. CM confirmed with [facility] that they can deliver IV antibiotics tomorrow 03/28/24 at 5pm. Patient sister updated and made aware. CM provided IMM form for to sign and Patient will
require ambulance transportation. CM will complete transportation forms. CM will continue to follow for discharge planning needs.
Plan; discharge tomorrow with [facility] delivery for IV antibiotics and [facility] for nursing and PT
[2024-03-27 15:35] VITALS: BP 107/68
--- NOTE | 2024-03-27 15:51 | W.PN.HOSP.TC ---
Today's Communication/Plan
-
anticipate d/c home tomorrow if no issues with meropenem
Assessment / Plan
Assessment / Plan
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
over the past few days associated with weakness and confusion and chills today.
He was recently treated for urinary tract infection with Zosyn through PICC line which he completed 6 days ago. While on Zosyn he developed significant diarrhea and had to terminate the antibiotics 2 days early. He has still been having occasional
increased frequency loose stools but not watery at this time.
History of neurogenic bladder with Recurrent UTI secondary to straight catheterizations--pseudomonas in urine culture--same as previous infections--apprec ID--cefepime changed to meropenem--needs outpt IV abx--no d/c today
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
Sacral wound (POA)--wound care
CKD 3A--Renal function at baseline
IBS
Reactive airway disease
BPH status post TURP
Fatty liver
Anxiety/depression--Continue mirtazapine
code status --DNR/DNI
DVT prophylaxis�heparin
Anticipated Discharge: Within 24 hours
Subjective/Interval History
-
Date of Service: March 27, 2024
pt having worsening tremors after ABX
Objective Data
-
Labs:
Laboratory Results
03/27/24
04:25
WBC 7.5
Hgb 13.6
Hct 39.7
Plt Count 160 D
Sodium 139
Potassium 4.3
Chloride 107
Carbon Dioxide 26
BUN 25 H
Creatinine 1.1
Glucose 92
Calcium 8.8
Vital Signs:
max temp for 24 hours
03/26/24
15:45
Temp 98.5 F
Vital Signs
Temp Pulse Resp BP Pulse Ox
97.8 F 64 18 107/68 97
03/27/24 15:35 03/27/24 15:35 03/27/24 15:35 03/27/24 15:35 03/27/24 15:35
I&O
03/26/24 03/27/24 03/28/24
06:59 06:59 06:59
Intake Total 1450 / 1450
Output Total 100 / 100
Balance 1450 / 1450 -100 / -100
Review of Systems
-
All other systems: Reviewed and negative
Neuro: Reports Tremors
Physical Exam
-
General: Well Developed, Well Nourished and No Apparent Distress
HEENT: Normocephalic and Atraumatic
Respiratory: Clear to Auscultation; Negative Wheezes or Rhonchi
Cardiac: Regular Rhythm and S1/S2; Negative Murmur
GI: Soft, Nontender, Nondistended and Normal Bowel Sounds
Musculoskeletal: No Clubbing, No Cyanosis and No Edema
Neuro: Awake, Alert and Tremors
Psych: Apparent Dementia
[2024-03-27] MEDS: MIRALAX 17 GRAMS PO (18:31)
[2024-03-27] MEDS: COLACE 100 MG PO (19:59)
[2024-03-27] MEDS: REMERON 7.5 MG PO (20:00)
[2024-03-28 00:24] VITALS: BP 153/66
[2024-03-28] MEDS: SEROQUEL 12.5 MG PO ×2 (01:23→17:05)
[2024-03-28 02:28] VITALS: BP 128/94
--- NOTE | 2024-03-28 02:28 | PTCARENOTE ---
Pt's states pt having increased twitching/tremors and periods of confusion, diaphoretic. BP 128/94, HR 99, T 98.3, RR 20, 95% on RA. Pt's had requested pt receive seroquel earlier this shift d/t increased restlessness/twitching, and house
DATA MANAGEMENT CONSULTANT ordered it and pt was medicated at 0123. [facility] DATA MANAGEMENT CONSULTANT made aware, no new orders received.
[2024-03-28] MEDS: MERREM 1000 MG IV ×3 (05:42→22:38)
[2024-03-28] MEDS: STERILE WATER FOR INJECTION 20 ML IV ×3 (05:42→22:39)
[2024-03-28 07:00] VITALS: BP 153/110
[2024-03-28] MEDS: COLACE PO ×2 (08:25→22:27)
[2024-03-28] MEDS: NAMENDA 10 MG PO (08:26)
[2024-03-28] MEDS: MIRALAX PO (08:26)
[2024-03-28] MEDS: HEPARIN 5000 UNITS SC ×2 (08:26→22:36)
[2024-03-28 08:34] VITALS: BP 151/83
--- NOTE | 2024-03-28 12:13 | W.PN.ID1 ---
Date of Service
Date of Service: March 28, 2024
Today's Communication
Continue meropenem.
Manage anxiety.
Assessment / Plan
# Increased tremors and change in mental status from baseline
- Suspect side effects from cefepime.
-DC'd cefepime; last dose received (03/27/25 0900)
- Explained to family that may take several days off cefepime to see improvement.
# Recurrent symptomatic Pseudomonas UTI
- Recently completed 12 days of Zosyn 4.5g IV q6h (03/18/24) for Pseudomonas UTI.
(c/o severe diarrhea on Zosyn)
- CXR neg.
- Leukocytosis quickly resolved.
- Ucx: 100K Pseudomonas, 2 strains
- Continue meropenem 1g IV q8h (d4 abx)
Plan to treat at least 7 days (if not 14d).
#Additional Past Medical History:
Reactive airway disease
BPH status post TURP
Neurogenic bladder� straight catheterizations as needed
CKD3
Posterior cortical atrophy with left-sided weakness, sensory deficit, visual deterioration
Fatty liver
Sacral wound
IBS
Chief Complaint
-: UTI
Subjective / Review of Systems
and daughter at bedside.
Pt c/o shaking, tremors, and anxiety all night. He did not get much sleep. Continues to feel anxious today. Family wants something for anxiety.
Vital Signs / Physical Exam
Vital Signs
Vital Signs
Temp Pulse Resp BP Pulse Ox
98.2 F 84 16 151/83 96
03/28/24 07:00 03/28/24 08:34 03/28/24 07:00 03/28/24 08:34 03/28/24 08:45
Physical Exam
Constitutional: Chronically Ill
Neurological: Awake and Tremors (occasional jerking tremors BLE upper body)
Objective Data
Lab Data
Lab Results
03/27/24 04:25
03/27/24 04:25
Estimated Creat Clear 66 ml/min 03/27/24 04:25
Lactic Acid 0.7 mmol/L (0.7-2.0) 03/24/24 12:35
Total Bilirubin 0.7 mg/dl (0.2-1.3) 03/25/24 05:18
AST 20 U/L (17-59) 03/25/24 05:18
ALT 19 U/L (0-50) 03/25/24 05:18
Alkaline Phosphatase 59 U/L (38-126) 03/25/24 05:18
Most recent labs reviewed.
Micro Results:
03/24/24 12:35 Blood Culture - Preliminary
Blood/Venous No Growth in 72 hours- Final report to follow
03/24/24 14:21 Urine Culture - Final
Urine Pseudomonas aeruginosa
Pseudomonas aeruginosa#2
03/24/24 CXR: No evidence of consolidation to suggest pneumonia.
Care Review
Plan reviewed with: Physician (Dr. Holguin)
[2024-03-28] MEDS: NEURONTIN 100 MG PO ×3 (13:23→22:41)
--- NOTE | 2024-03-28 13:36 | CM ---
Addendum entered by Manju Garcia 03/28/24 15:39:
IMM benefit explained to ; form signed @ [phone]
Addendum entered by Manju Garcia 03/28/24 14:42:
ambulance telephone supervisor is scheduled or 1000 tomorrow morning
Original Note:
Per Attending, patient will be discharged tomorrow instead of today
Spoke with community mental health worker. Requested scheduling of ambulance transport for tomorrow morning.
Home Address: [address] [place] [address], [phone] tomorrow morning;
[facility] health will contact tomorrow to let her know what time they will be able to visit the home to educate and administer ABX.
Per [facility], Antibiotics will still be delivered to the home @ 5 PM today as planned.
CM discussed plan with patient's , Jyothi. She is agreeable with plan.
Attending and care team notified
[2024-03-28 15:00] VITALS: BP 136/69
--- NOTE | 2024-03-28 16:16 | W.PN.HOSP.TC ---
Today's Communication/Plan
-
hopeful d/c tomorrow early d/c
Assessment / Plan
Assessment / Plan
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
over the past few days associated with weakness and confusion and chills today.
He was recently treated for urinary tract infection with Zosyn through PICC line which he completed 6 days ago. While on Zosyn he developed significant diarrhea and had to terminate the antibiotics 2 days early. He has still been having occasional
increased frequency loose stools but not watery at this time.
History of neurogenic bladder with Recurrent UTI secondary to straight catheterizations--pseudomonas in urine culture--same as previous infections--apprec ID--cefepime changed to meropenem--needs outpt IV abx--no d/c today due to anxiety (family
concerned they can't handle at home until anxiety better)--will start gabapentin 100 mg TID
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
Sacral wound (POA)--wound care
CKD 3A--Renal function at baseline
IBS
Reactive airway disease
BPH status post TURP
Fatty liver
Anxiety/depression--Continue mirtazapine
code status --DNR/DNI
DVT prophylaxis�heparin
Anticipated Discharge: Within 24 hours
Subjective/Interval History
-
Date of Service: March 28, 2024
pt wants to go home-- and daughter think too anxious (which makes tremors worse) to go home
Objective Data
-
Vital Signs:
max temp for 24 hours
03/28/24
02:28
Temp 98.3 F
Vital Signs
Temp Pulse Resp BP Pulse Ox
97.6 F 74 18 136/69 96
03/28/24 15:00 03/28/24 15:00 03/28/24 15:00 03/28/24 15:00 03/28/24 15:00
I&O
03/27/24 03/28/24 03/29/24
06:59 06:59 06:59
Intake Total 300 / 300 360 / 360
Output Total 100 / 100
Balance -100 / -100 300 / 300 360 / 360
Review of Systems
-
All other systems: Reviewed and negative
Physical Exam
-
General: Well Developed, Well Nourished and Appears Chronically Ill
HEENT: Normocephalic and Atraumatic
Respiratory: Clear to Auscultation; Negative Wheezes or Rhonchi
Cardiac: Regular Rhythm and S1/S2; Negative Murmur
GI: Soft, Nontender, Nondistended and Normal Bowel Sounds
Neuro: Tremors
[2024-03-28] MEDS: REMERON PO (22:38)
[2024-03-28] MEDS: NAMENDA PO (22:38)
[2024-03-28 23:57] VITALS: BP 96/64
[2024-03-29] MEDS: STERILE WATER FOR INJECTION 20 ML IV (06:46)
[2024-03-29] MEDS: MERREM 1000 MG IV (06:47)
[2024-03-29 07:00] VITALS: BP 139/92
--- NOTE | 2024-03-29 07:56 | W.PN.HOSP.TC ---
Today's Communication/Plan
-
d/c
Assessment / Plan
Assessment / Plan
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
over the past few days associated with weakness and confusion and chills today.
He was recently treated for urinary tract infection with Zosyn through PICC line which he completed 6 days ago. While on Zosyn he developed significant diarrhea and had to terminate the antibiotics 2 days early. He has still been having occasional
increased frequency loose stools but not watery at this time.
History of neurogenic bladder with Recurrent UTI secondary to straight catheterizations--pseudomonas in urine culture--same as previous infections--apprec ID--cefepime changed to meropenem--needs outpt IV abx--no d/c today due to anxiety (family
concerned they can't handle at home until anxiety better)--slept well with gabapentin--will NOT give at d/c as knocked pt out
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
Sacral wound (POA)--wound care
CKD 3A--Renal function at baseline
IBS
Reactive airway disease
BPH status post TURP
Fatty liver
Anxiety/depression--Continue mirtazapine
code status --DNR/DNI
DVT prophylaxis�heparin
Anticipated Discharge: Today
Subjective/Interval History
-
Date of Service: March 29, 2024
pt up and having breakfast--slept well last night
Objective Data
-
Vital Signs:
max temp for 24 hours
03/28/24
23:57
Temp 98 F
Vital Signs
Temp Pulse Resp BP Pulse Ox
98 F 63 18 96/64 97
03/28/24 23:57 05/24/24 23:57 03/28/24 23:57 03/28/24 23:57 03/28/24 23:57
I&O
03/28/24 03/29/24 03/30/24
06:59 06:59 06:59
Intake Total 300 / 300 1240 / 1240
Balance 300 / 300 1240 / 1240
Review of Systems
-
All other systems: Reviewed and negative
Physical Exam
-
General: Well Developed, Well Nourished and No Apparent Distress
HEENT: Normocephalic and Atraumatic
Respiratory: Clear to Auscultation; Negative Wheezes or Rhonchi
Cardiac: Regular Rhythm and S1/S2; Negative Murmur
GI: Soft, Nontender, Nondistended and Normal Bowel Sounds
Musculoskeletal: No Clubbing, No Cyanosis and No Edema
Neuro: Awake and Tremors
--- NOTE | 2024-03-29 09:02 | CM ---
Chart reviewed and patient is for discharge to home today, IMM given, ambulance transport at 10 am.
Plan; Home with [facility] IV ABX, and [facility] visiting nurses.
[2024-03-29] MEDS: HEPARIN 5000 UNITS SC (09:39)
[2024-03-29] MEDS: MIRALAX 17 GRAMS PO (09:39)
[2024-03-29] MEDS: NAMENDA 10 MG PO (09:39)
[2024-03-29] MEDS: COLACE PO ×2 (09:39→09:43)
--- NOTE | 2024-03-29 13:11 | W.DCSUMMARY ---
Discharge Summary
Discharge Data
Date of Admission: 03/24/24
Date of Discharge: 03/29/24
-
Pending Results: No
Hospital Course
Primary care physician : Francisco Ibanez
Principal Discharge diagnosis : Neurogenic bladder with recurrent urinary tract infections secondary to straight catheterizations
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
prostatic hyperplasia status post TURP, anxiety/depression
Hospital Course : Patient was a 73-year-old male with a medical history of posterior cortical atrophy and chronic left-sided weakness along with neurogenic bladder who has straight catheterizations who presented with pain with urination over the
past few days prior to admission. This is associated with weakness and confusion and chills. He recently was treated for urinary tract infection through a PICC line with Zosyn which he completed 6 days prior to admission. On Zosyn, he developed
significant diarrhea and terminated the antibiotics early. He had increased frequency and loose stools prior to admission. Patient was admitted.
Problem #1: Neurogenic bladder with recurrent urinary tract infection secondary to straight catheterizations. Patient was admitted and seen in consultation by infectious disease. Urine culture grew Pseudomonas which was the same as previous
infections. Initially IV cefepime was started which was then changed to meropenem. Infectious diseases recommending outpatient IV antibiotics. Meropenem is the medication at discharge. PICC line has been placed for discharge home.
Problem #2: All other medical issues. 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
airway disease, benign prostatic hyperplasia status post TURP, anxiety/depression. These medical issues were stable during his hospitalization. Medications were continued as able. Patient did have increased tremors and anxiety which delayed
discharge by 1 day. He was given gabapentin for anxiety which worked well and he slept, but will not discharge on this medication.
Patient is stable for discharge home at this time. If there are any questions regarding this dictation or his hospital stay, please not hesitate to call. Our office number is [phone].
Time for discharge 33 minutes.
Discharge Plan
-
Patient Disposition: Home with Home Care
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
on admission, chronic kidney disease stage IIIa, irritable bowel syndrome, reactive airway disease, benign prostatic hyperplasia status post TURP, anxiety/depression
Condition: Good
Diet: As tolerated
Activity: As tolerated
Driving Restrictions: No driving
Bathing Restrictions: None
Other Services: VN
Referrals:
Francisco Ibanez MD [Family Provider] - in less than 1 week
Additional Discharge Medication Instructions: discuss with ID re: length of treatment with IV antibiotic
Prescriptions:
New
meropenem 1 gram Recon Soln
1,000 mg IV Q8H Qty: 0 0RF
Continued
memantine 10 MG tablet
10 mg PO BID
Patient Comments:
03/24/2024, pt. crushes these tablets.
mirtazapine 7.5 mg Tablet
7.5 mg PO HS
cranberry 500 mg Capsule
1,000 mg PO NOON
Patient Comments:
03/24/2024, gummies.
Imodium liquid
1 dose PO DAILYPRN PRN (Reason: diarrhea)
Probiotic Gummy
1 gummy PO DAILY
quetiapine [Seroquel] 25 mg Tablet
12.5 mg PO QPM
Held
methenamine hippurate 1 gram Tablet
1 g PO BID
Hold Instructions: restart after IV abx completed
Patient Comments:
03/24/2024, pt. crushes these tablets.
Discharge Orders:
Discharge Patient (As Directed); Ordered 03/29/24
Ordered By: Ruma Holguin
Discharge Date and Time
Discharge Date/Time: 03/29/24 10:15
Print Language: ALBANIAN
== END 2024-03-29 10:15 | disposition home health service (06) | DRG 699 ==
LOC: 4 WEST ACU 20:01
PROVIDERS: Emergency Medicine; Student in an Organized Health Care Education/Training Program; ADMITTING PHYSICIAN Hospitalist; ATTENDING PHYSICIAN Internal Medicine; CONSULT PHYSICIAN Internal Medicine Infectious Disease; EMERGENCY PHYSICIAN Emergency Medicine; FAMILY PHYSICIAN Internal Medicine
DX: T83.518A Infection and inflammatory reaction due to other urinary catheter, initial encounter (principal); N39.0 Urinary tract infection, site not specified; N31.9 Neuromuscular dysfunction of bladder, unspecified; N40.0 Benign prostatic hyperplasia without lower urinary tract symptoms; J45.909 Unspecified asthma, uncomplicated; K58.0 Irritable bowel syndrome with diarrhea; B96.5 Pseudomonas (aeruginosa) (mallei) (pseudomallei) as the cause of diseases classified elsewhere; Y84.6 Urinary catheterization as the cause of abnormal reaction of the patient, or of later complication, without mention of misadventure at the time of the procedure; K76.0 Fatty (change of) liver, not elsewhere classified; N18.31 Chronic kidney disease, stage 3a; G31.89 Other specified degenerative diseases of nervous system; F32.A Depression, unspecified; F41.9 Anxiety disorder, unspecified; R20.0 Anesthesia of skin; R25.1 Tremor, unspecified; R41.82 Altered mental status, unspecified; T36.1X5A Adverse effect of cephalosporins and other beta-lactam antibiotics, initial encounter; Y92.9 Unspecified place or not applicable; Z66 Do not resuscitate; Z87.440 Personal history of urinary (tract) infections; Z88.8 Allergy status to other drugs, medicaments and biological substances; Z90.79 Acquired absence of other genital organ(s)
CPT/HCPCS: 71046; 80048; 80053; 81003; 81015; 83605; 83735; 85025; 85027; 87040; 87086; 87088; 87186; 99285; J2185

== ENCOUNTER 2024-05-04 03:29 | Inpatient (IN) | payer MEDICARE, OTHER, SELFPAY ==
[2024-05-04] VITALS (19 sets, daily range): BP systolic 74–134; BP diastolic 55–114; PULSE 96–98; O2SAT 96–99; BMI 28.6
[2024-05-04] MEDS: TYLENOL 650 MG PO ×2 (00:49→13:54)
[2024-05-04 00:54] LABS: Urine Albumin 2+ (Neg - Trace); Urine Bilirubin 1+ (Negative); Urine Character Very Cloudy (Clear); Urine Color Amber; Urine Glucose Negative (Negative); Urine Ketone 1+ (Negative); Urine Leukocyte 2+ (Negative); Urine Nitrite Positive (Negative); Urine Occult Blood 4+ (Negative); Urine Specific Gravity 1.015 (<1.030); Urine Urobilinogen 1+ (Neg - 1+); Urine pH 6.5 (5.0-9.0)
[2024-05-04 00:57] LABS: % Basophils 0.2 % (0-2); % Eosinophils 0.4 % (0-6); % Immature Granulocytes 0.7 % (0-0.5); % Lymphocytes 3.7 % (20.5-51.1); % Monocytes 3.2 % (1.7-9.3); % Neutrophils 91.8 % (42.2-75.2); Absolute Basophils 0.1 10^3/uL (0-0.2); Absolute Eosinophils 0.1 10^3/uL (0-0.7); Absolute Immature Granulocytes 0.2 10^3/uL (0-0.05); Absolute Lymphocytes 0.8 10^3/uL (1.2-3.4); Absolute Monocytes 0.7 10^3/uL (0.1-0.6); Absolute Neutrophils 20.1 10^3/uL (1.4-6.5); Hematocrit 39.6 % (39.0-52.0); Hemoglobin 14.8 g/dL (13.0-18.0); Mean Corp Hgb Conc. 37.4 g/dL (33.0-37.0); Mean Corpuscular Hgb 31.4 pg (27.0-31.0); Mean Corpuscular Volume 83.9 fL (80.0-94.0); Mean Platelet Volume 9.9 fL (7.4-10.4); Nucleated Red Blood Cells % 0 % (-); Platelet Count 232 10^3/uL (130-400); Red Blood Cell Count 4.72 10^6/uL (4.70-6.10); Red Cell Dist. Width 12.3 % (11.5-14.5); White Blood Cell Count 21.9 10^3/uL (4.8-10.8)
[2024-05-04 01:10] LABS: Lactic Acid 1.5 mmol/L (0.7-2.0)
[2024-05-04 01:18] LABS: ALT (SGPT) 23 U/L (0-50); AST (SGOT) 23 U/L (17-59); Albumin 3.9 g/dl (3.5-5.0); Alkaline Phosphatase 81 U/L (38-126); Blood Urea Nitrogen 24 mg/dl (9-20); Calcium 8.8 mg/dl (8.4-10.2); Carbon Dioxide 23 mmol/L (22-30); Chloride 104 mmol/L (98-107); Glucose 132 mg/dl (70-99); Sodium 136 mmol/L (135-145); Total Bilirubin 1.1 mg/dl (0.2-1.3); Total Protein 6.7 g/dl (6.3-8.2); eGFR 56.93
[2024-05-04 01:43] LABS: Urine Amorphous Seen; Urine Bacteria Many (Negative); Urine Mucus Many; Urine Squamous Cell >30 /LPF (Few); Urine Urothelial Cell >30 /LPF (FEW); Urine White Cell >100 /HPF (0-5)
--- NOTE | 2024-05-04 02:02 | ED.GENMED ---
History of Present Illness
General
Chief Complaint: Fever
Source: patient and spouse
Exam Limitations: none
Time Seen by Provider: 05/04/24 01:43
History of Present Illness
History of Present Illness:
This is a 74 year old male that is brought in by ambulance with c/o fever. states that he was here in February. States that she has been getting UTI on and off. States that he was sent home with a midline and antibiotics for 2 weeks. State that
3-4 days after stopping the antibiotic the symptoms of a UTI came back. States that again he was given antibiotic for 2 weeks. After stopping the symptoms again came back and he was in the hospital for a week. States that he has been on three
different antibiotics and has now been off for a couple of weeks. States that the urologist suggest he had a boss catheter to keep the bladder empty. State that this was place on Sunday. Then last night he was very wrestles. States that he slept
from 4:30pm and awoke around 1am. Sates that she was watching and checking for any fevers. States that she gave him Tylenol at 9pm as he said this right thigh was sore as he did a lot of walking yesterday and he is not very mobile. Then at 11pm she
checked his temp and he was 102. States that he was a little dizzy when EMS got him up. Denies any chills, chest pain, SOB, nausea, vomiting, diarrhea, headache.
Past History
Past History
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
words), UTI, Pseudomonas in the urine, BPH)
ED Past Surgical History: None, Orthopedic (meniscus repair) and Other (anal fissure repair)
Social History
Tobacco: Non-smoker
Alcohol: None
Drug: None
Personal:
Living: with family
Employment: Retired
Review of Systems
Review of Systems
Other source history: family
All Other Systems: ROS reviewed and negative except as documented in HPI and ROS
Constitutional: Reports fever; Denies chills
EENT: Reports no symptoms
Respiratory: Reports no symptoms; Denies cough or trouble breathing
Cardiac: Reports no symptoms; Denies chest pain
ABD/GI: Reports abdominal pain; Denies nausea, vomiting or diarrhea
: Reports other (Boss)
Musculoskeletal: Reports no symptoms
Skin: Reports no symptoms
Neurological: Reports dizzy (Slight); Denies headache
Psychiatric: Reports no symptoms
Phy Exam
General Physical Exam
General Presentation: no apparent distress
General age: appears stated age
General Skin: warm and dry
General Habitus: debilitated and elderly
General Mental: alert (goes to sleep easily and has a hard time finding words which is normal for patient. )
General Hydration: dry mucous membranes
ENT Exam
ENT Exam: TM's normal and pharynx normal
Cardiovascular Exam
Cardiovascular Exam: regular rate/rhythm, no edema, normal peripheral pulses and other (Murmur)
Pulmonary Exam
Pulmonary Exam: lungs clear, no respiratory distress, no rales, chest non tender, no crackles, no rhonchi, no wheezing and no cough
Gastrointestinal Exam
Gastrointestinal Exam: normal bowel sounds, soft, no organomegaly, no pulsatile mass, non distended and tender (Lower abd tenderness with palpation)
Musculoskeletal Exam
Musculoskeletal Exam: no edema
Skin Exam
Skin Exam: normal color, warm/dry, no rash and no petechia
Psychiatric Exam
Psychiatric Exam: normal mood/affect (for patient)
Course
Orders/Labs/Results
Orders:
Orders
05/04/24 00:43
Electrocardiogram (*1) Urgent
Reason for Study: Other
Other Reason for Exam: Possible Sepsis
EKG- Treatment ONCE
05/04/24 00:44
Acetaminophen [Tylenol] 650 mg PO NOW STA
05/04/24 00:45
Complete Blood Count/With Diff Urgent
Comprehensive Metabolic Panel Urgent
Lactic Acid Q4H
Comment: ON ICE, CANCEL 2ND ORDER IF FIRST LACTIC ACID LEVEL <2
Urinalysis Reflex To Culture Urgent
Date Specimen was Collected: 05/04/24
Time Specimen was Collected: 00:43
Urine Microscopic Reflex Cult Urgent
Blood Culture Q30M
CHARANJIT Source: Blood/Venous
Specimen Description:
Comment: FROM 2 SEPARATE SITES
Blood Culture Q30M
CHARANJIT Source: Blood/Venous
Specimen Description:
Comment: FROM 2 SEPARATE SITES
Urine Culture Urgent
CHARANJIT Source: U
Specimen Description:
Date Specimen was Collected: 05/04/24
Time Specimen was Collected: 00:43
05/04/24 02:01
0.9% Sodium Chloride 1000 ml [Nss] 1,000 ml IV BOLUS
Meropenem [Merrem] 1,000 mg IV NOW STA
05/04/24 02:12
Sterile Water [Sterile Water For Injection] 20 ml .ROUTE .[facility]
05/04/24 02:19
CR Chest Portable - 1 View Urgent
Comment:
Reason For Exam: Fever
Reason Study Needs to be Portable: Unable to Transport
Abnormal Lab Results
05/04/24
00:45
WBC 21.9 H 10^3/uL
(4.8-10.8)
MCH 31.4 H pg
(27.0-31.0)
MCHC 37.4 H g/dL
(33.0-37.0)
Abs Immat Gran (auto) 0.2 H 10^3/uL
(0-0.05)
Absolute Neuts (auto) 20.1 H 10^3/uL
(1.4-6.5)
Absolute Lymphs (auto) 0.8 L 10^3/uL
(1.2-3.4)
Absolute Monos (auto) 0.7 H 10^3/uL
(0.1-0.6)
Immature Gran % 0.7 H %
(0-0.5)
Neutrophils % 91.8 H %
(42.2-75.2)
Lymphocytes % 3.7 L %
(20.5-51.1)
BUN 24 H mg/dl
(9-20)
Glucose 132 H mg/dl
(70-99)
Urine Ketones 1+ A
(Negative)
Ur Occult Blood Reflex 4+ A
(Negative)
Urine Nitrite (Reflex) Positive A
(Negative)
Urine Bilirubin 1+ A
(Negative)
Leukocyte Esterase Rfl 2+ A
(Negative)
Urine WBC (Reflex) >100 A /HPF
(0-5)
Urine Bacteria (Reflex) Many A
(Negative)
Urine Albumin (Reflex) 2+ A
(Neg - Trace)
05/04/24 00:45
05/04/24 00:45
Leukocytosis, Dehydration. Hyperglycemia, Urine positive for infection. Lactic acid normal at 1.5
Vital Signs
Initial and Last Documented VS:
Initial Vital Signs
Temp Pulse Resp BP Pulse Ox
103 F H 111 21 129/69 95
05/04/24 00:38 05/04/24 00:38 05/04/24 00:38 05/04/24 00:38 05/04/24 00:38
Last Documented Vital Signs
Temp Pulse Resp BP Pulse Ox
103.8 F H 108 26 107/74 90
05/04/24 00:44 05/04/24 02:00 05/04/24 02:00 05/04/24 02:00 05/04/24 01:30
MDM/Problems Addressed
Differential Diagnosis Includes:
Fever, UTi
MDM/Problems Addressed:
This is a 74 year old male that since about February patient has been having problems with recurring UTI. Patient has been on three different antibiotics according to . States that he started with a fever around 11pm last night.
Will get labs, IV fluids, Urine and start antibiotics. Explained to that he will be admitted as his WBC's are elevated and his urine does look infected. Hospitalist notified.
Chronic conditions affecting care: Other (UTI, indwelling boss)
Acute Exacerbation and/or Progression of Chronic Illness:
UTI
*Radiology
Radiology exam reviewed: preliminary read by ED provider (Chest- negative for active disease. )
*Pulse Oximetry
Patient hypoxic: no
*EKG
Interpreted by ED Provider?: NA
Rate: EKG- N/A
*Clinic Office Manager Interpretation
Rate: tachycardiac
Heart Rate: 108
Rhythm: sinus
*Critical Care Note
Total Time (30-74mins, 75-104mins- exclusive of procedures): Not Applicable
ED Attending Note
-
Portions of this chart may have been created with voice recognition software.� Occasional wrong word or��sound alike� substitutions may have occurred due to the inherent limitations of voice recognition software.
Discharge Plan
Departure
Patient Disposition: Admit
Date of Disposition: 05/04/24
Time of Disposition: 02:49
Admit to: Med/Surg
Presentation/result/management discussed w/ accepting MD/DO: Hospitalist
Patient with high blood pressure during this ER visit?: No
Condition: Good
Covid-19: Not Applicable
Discharge Problem:
Urinary tract infection
Prescriptions:
No Action
memantine 10 MG tablet
10 mg PO BID
Patient Comments:
03/24/2024, pt. crushes these tablets.
methenamine hippurate 1 gram Tablet
1 g PO BID
Hold Instructions: restart after IV abx completed
Patient Comments:
03/24/2024, pt. crushes these tablets.
mirtazapine 7.5 mg Tablet
7.5 mg PO HS
cranberry 500 mg Capsule
1,000 mg PO NOON
Patient Comments:
03/24/2024, gummies.
Imodium liquid
1 dose PO DAILYPRN PRN (Reason: diarrhea)
Probiotic Gummy
1 gummy PO DAILY
quetiapine [Seroquel] 25 mg Tablet
12.5 mg PO QPM
meropenem 1 gram Recon Soln
1,000 mg IV Q8H Qty: 0 0RF
Referrals:
UNKNOWN - PT NOT,INTERVIEWE [Family Provider] -
Interventions
Interventions:
*Risk Screen - Suicide Last Done: 05/04/24 00:38
*General Assessment Last Done: 05/04/24 01:28
*Neglect/Abuse Screening Last Done: 05/04/24 01:28
*ED COVID-19 Vaccine History Last Done: 05/04/24 01:30
ED- Neurological Assessment Last Done: 05/04/24 01:29
ED-Skin Assessment Last Done: 05/04/24 01:29
Discharge Date and Time
Print Language: STATELESS
[2024-05-04] MEDS: NSS 1000 IV ×4 (02:22→23:02)
[2024-05-04] MEDS: MERREM 1000 MG IV (02:22)
--- NOTE | 2024-05-04 03:05 | HPS.HSE ---
Family Physician
-
Family Physician: INTERVIEWE UNKNOWN - PT NOT
Chief Complaint
-
Fever
History of Present Illness
Patient is a 74y M with PMH significant for posterior cortical atrophy / chronic L weakness and neurogenic bladder who presents to ED for evaluation of fever. History obtained primarily from his at the bedside. Patient has been
hospitalized multiple times in the past few months for urinary tract infections. He previously required intermittent straight cath due to urinary retention / neurogenic bladder. After his most recent infection / course of IV meropenem, Urology
recommended placement of indwelling Chanel to prevent retention / hopefully reduce frequency of infections. Chanel was placed 04/22 and patient has seemed to do fairly well until last PM. notes that patient seemed quite restless and agitated
overnight last PM. Today he slept the entire day. He complained of some RLQ pain / pain in the R thigh which was a new complaint for him.
Patient had reportedly been more active / ambulatory than usual on Sunday and family felt that may be the reason for his discomfort.
Later this evening, patient was noted to have fever at home to 102 in addition to continued lethargy and complaints of RLQ discomfort.
He was brought to the ED for further evaluation and treatment.
In the ED, patient responds to some questions but is generally lethargic.
denies any other recent issues or complaints including sore throat, dyspnea, N/V/D, etc.
Medical History
Past Medical History
Past Medical History: Reports Other
Additional Past Medical History:
Posterior Cortical Atrophy with Chronic Left Sided Weakness / Numbness and Intermittent Agitation / Cognitive Impairment
Neurogenic Bladder with Recurrent UTI (Pseudomonas)
BPH
CKD III
Anxiety / Depression
Past Surgical History: Reports Other
Additional Past Surgical History:
TURP
Social History
Tobacco: Non-smoker
Alcohol: None
Drug: None
Personal:
Living: With Family
Family History
Family History: Not pertinent
Allergies / Home Medications
Allergies reflects when Allergies were last updated in [facility].
Home Medications with original date entered in [facility]
Allergy/Medication List:
Allergies
Allergy/AdvReac Type Severity Reaction Status Date / Time
diazepam Allergy BENZODIAZEP Verified 03/24/24 22:11
DEB
tamsulosin [From Flomax] Allergy Nightmares Verified 02/14/24 18:24
Home Medications
memantine 10 mg tablet 10 mg PO BID Neurological Condition 09/09/20
methenamine hippurate 1 gram tablet 1 g PO BID Urinary Issue 02/14/24
mirtazapine 7.5 mg tablet 7.5 mg PO Mental Health 02/14/24
Probiotic Gummy 1 gummy PO DAILY Supplement 03/24/24
cranberry 500 mg capsule 1,000 mg PO NOON Supplement 03/24/24
quetiapine 25 mg tablet (Seroquel) 25 mg PO QPM 03/27/24
Review of Systems
-
History Source: Patient and Family
A 12 point ROS was completed and negative except as noted: Yes
Constitutional: Reports Fever, Fatigue and Chills
EENT: Denies Sore Throat
Respiratory: Denies Cough or Trouble Breathing
Cardiac: Denies Chest Pain or Palpitations
Abdomen/GI: Reports Abdominal Pain; Denies Nausea, Vomiting, Diarrhea, Bloody Stools or Black Stools
: Reports Chanel; Denies Flank Pain or Bleeding
Musculoskeletal: Reports Muscle Pain (R thigh pain); Denies Edema
Neurological: Reports Weakness and Numbness (chronic); Denies Dizzy or Headache
Physical Exam
Vital Signs
Vital Signs
Temp Pulse Resp BP Pulse Ox
103.8 F H 108 26 107/74 90
05/04/24 00:44 05/04/24 02:00 05/04/24 02:00 05/04/24 02:00 05/04/24 01:30
Physical Exam
General: Other (Ill-appearing 74y M lethargic and poorly communicative at present.)
HEENT: Moist mucous membranes and PERRLA
Respiratory: Other (Decreased at bases - otherwise clear.)
Cardiac: S1/S2, Regular Rhythm and Murmur (II/ FELIPA)
GI: Soft, Non Distended, Normal Bowel Sounds and Other (Pos RLQ tenderness without rebound / guarding.)
Genito-urinary: Other (Chanel in place draining elizabeth urine with sediment. No gross blood.)
Musculoskeletal: No Clubbing, No Cyanosis and No Edema
Neuro: Other (Sleeping. Wakes to voice and will follow commands. Answers simple questions appropriately, but rambles / mumbles with open-ended questioning.)
Laboratory Results
-
05/04/24 00:45
05/04/24 00:45
Laboratory Results
Lactic Acid Cancelled 05/04/24 04:45
Total Bilirubin 1.1 mg/dl (0.2-1.3) 05/04/24 00:45
AST 23 U/L (17-59) 05/04/24 00:45
ALT 23 U/L (0-50) 05/04/24 00:45
Alkaline Phosphatase 81 U/L (38-126) 05/04/24 00:45
Impression/Plan
-
A/P: Patient is a 74y M with PMH significant for posterior cortical atrophy with L weakness, neurogenic bladder, tremor and cognitive impairment who presents to ED for evaluation of lethargy and fever.
CAUTI
Sepsis secondary to the above
Acute TME secondary to the above
- Admit for further evaluation and treatment.
- Patient presents with fever, leukocytosis, tachycardia and acute TME with evidence for UTI.
- UA potentially c/w infection, though large amount of squamous cells despite cath sample.
- Restart meropenem and follow-up culture data.
- ID re-evaluation.
- Supportive care including IVFs, antipyretics, etc.
- Follow for clinical improvement, fever curve, etc.
- Investigate other potential etiologies of sepsis as noted below.
RLQ Pain
- This is a new complaint for Mr. Parmar.
- ? related to increased physical activity of late, but given fever, leukocytosis, etc - would check CT A/P to rule out appendicitis, etc.
- CT ordered - follow-up results.
- Monitor for any new / worsening symptoms.
Posterior Cortical Atrophy
Dementia with Behavioral Disturbance
Chronic Tremor
Chronic Left-Sided Weakness
- Follow for return to baseline mental status with treatment of acute infection / sepsis.
- Continue usual outpatient Namenda, mirtazapine, etc.
- Seroquel PRN (which is how it is utilized at home).
- PT / OT evaluations.
Neurogenic Bladder
- Chanel placed about one week ago or so.
- Maintain Chanel for now.
- ? need for chronic abx suppression given recurrent UTIs.
CKD III
- Stable. Renal function is near known baseline.
- IVFs for sepsis as noted above.
- Follow for changes in SCr.
Sacral Wound
- Wound Care eval / recommendations.
DVT Prophylaxis: SCDs
Code Status: DNR
[2024-05-04 05:28] LABS: Hematocrit 43.9 % (39.0-52.0); Mean Corp Hgb Conc. 34.2 g/dL (33.0-37.0); Mean Corpuscular Hgb 30.5 pg (27.0-31.0); Mean Corpuscular Volume 89.4 fL (80.0-94.0); Mean Platelet Volume 10.4 fL (7.4-10.4); Platelet Count 233 10^3/uL (130-400); Red Blood Cell Count 4.91 10^6/uL (4.70-6.10); Red Cell Dist. Width 12.3 % (11.5-14.5); White Blood Cell Count 30.7 10^3/uL (4.8-10.8)
[2024-05-04 05:53] LABS: ALT (SGPT) 21 U/L (0-50); AST (SGOT) 27 U/L (17-59); Albumin 3.6 g/dl (3.5-5.0); Alkaline Phosphatase 86 U/L (38-126); Blood Urea Nitrogen 24 mg/dl (9-20); Calcium 8.6 mg/dl (8.4-10.2); Carbon Dioxide 21 mmol/L (22-30); Chloride 104 mmol/L (98-107); Direct Bilirubin 0.3 mg/dl (0.0-0.4); Estimated Creatinine Clearance 55 ml/min; Glucose 106 mg/dl (70-99); Potassium 4.1 mmol/L (3.5-5.1); Sodium 135 mmol/L (135-145); Total Bilirubin 1.3 mg/dl (0.2-1.3); Total Protein 6.7 g/dl (6.3-8.2); eGFR 56.93
--- NOTE | 2024-05-04 07:50 | W.PN.HOSP.TC ---
Addendum entered and electronically signed by Fam Green DO 05/04/24 14:34:
Acute right-sided epididymoorchitis noted on ultrasound. Moderate right hydrocele as well. This could be a source of sepsis. Blood and urine cultures pending.
CT abdomen/pelvis showed moderate fecal impaction, stercoral colitis. Bowel regimen ordered.
Original Note:
Today's Communication/Plan
-
Continue antibiotics
ID consult
Follow-up CT scan results
Assessment / Plan
Assessment / Plan
Gen-awake, alert, confused, NAD
HEENT-NC, AT, anicteric, clear oral mm
Neck-supple
CV-reg, no M, +S1/S2
Lungs-clear B/L
Abd-soft, nondistended, minimal right lower quadrant tenderness
Ext-no edema
Musculoskeletal-no cyanosis, clubbing
Skin-warm and dry
Neuro-grossly non-focal
Psych-calm, cooperative
Sepsis -differential diagnosis includes catheter associated UTI versus other. Await cultures. Continue empiric meropenem. ID consulted. Rising WBC count is concerning.
Given abdominal pain, CT abdomen/pelvis completed, report pending. Currently n.p.o., can resume diet today if CT scan nonconcerning.
Acute metabolic encephalopathy -likely due to sepsis in the setting of underlying dementia.
Hx of recurrent UTIs -Chanel catheter placed April 22 under the guidance of urology in the hopes of reducing frequent infections. Apparently he was self catheterizing multiple times prior to that leading to recurrent UTIs.
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
Chronic tremor/chronic left-sided weakness
Neurogenic bladder -maintain Chanel catheter.
CKD 3a -monitor for now. Renal function near baseline.
Sacral wound
DNR
updated at the bedside.
Anticipated Discharge: > 48 hours
Subjective/Interval History
-
Date of Service: May 04, 2024
Patient seen and examined. at the bedside. Patient is a limited historian due to dementia. Appears comfortable, no complaints.
Objective Data
-
Labs:
Laboratory Results
05/04/24 05/04/24
00:45 05:07
WBC 21.9 H 30.7 H
Hgb 14.8 15.0
Hct 39.6 43.9
Plt Count 232 233
Sodium 136 135
Potassium 4.0 4.1
Chloride 104 104
Carbon Dioxide 23 21 L
BUN 24 H 24 H
Creatinine 1.3 1.3
Glucose 132 H 106 H
Calcium 8.8 8.6
Total Bilirubin 1.1 1.3
AST 23 27
ALT 23 21
Alkaline Phosphatase 81 86
Vital Signs:
Vital Signs
Temp Pulse Resp BP Pulse Ox
100.1 F 105 25 102/59 97
05/04/24 07:00 05/04/24 06:00 05/04/24 06:00 05/04/24 06:00 05/04/24 06:11
I&O
05/03/24 05/04/24 05/05/24
06:59 06:59 06:59
Intake Total 600 / 600
Output Total 325 / 325
Balance 275 / 275
Review of Systems
-
Unable to obtain full review of systems at this time due to: Dementia
History Source: Patient
All other systems: Reviewed and negative
[2024-05-04] MEDS: MERREM 500 MG IV ×3 (08:13→21:05)
[2024-05-04] MEDS: NAMENDA PO (08:14)
[2024-05-04] MEDS: STERILE WATER FOR INJECTION 10 ML IV ×3 (08:14→21:05)
[2024-05-04] MEDS: MIRALAX PO (08:14)
[2024-05-04] MEDS: COLACE PO ×2 (08:14→21:06)
--- NOTE | 2024-05-04 08:49 | CON.ID ---
Consultation
-
Date/Time Consultation Requested: May 04, 2024 0358
Date/Time Consultation Performed: May 04, 2024 0850
Requesting Provider: Dr. Glen Alvarado
Performing Provider: Dr. Sirisha Lloyd
Reason for Consultation: Recurrent CAUTI
Chief Complaint / Past History
Chief Complaint
Fever
History of Present Illness
74-year-old male with hx of posterior cortical atrophy with left-sided weakness, sensory deficit, neurogenic bladder now with boss placed 04/22/2024, recurrent Pseudomonas UTI who presented to the ER overnight with fever. History obtained from his
at bedside. Patient started to become lethargic approximately 2 days ago. Also complaining of right lower quadrant discomfort. Boss was draining well without gross hematuria. However last night he developed fever and therefore he came to
the ER. In ER temperature 103.8. White count of 21.9. CT of the abdomen pelvis unremarkable. However patient noted to have scrotal swelling. Scrotal ultrasound pending. Patient is currently on meropenem. Patient complains of weakness.
Positive chills. No diarrhea. No flank pain.
Past History
Additional Past Medical History:
Reactive airway disease
BPH status post TURP
Neurogenic bladder� straight catheterizations as needed in the past; has boss since 04/22/24
CKD3
Posterior cortical atrophy with left-sided weakness, sensory deficit, visual deterioration
Fatty liver
Sacral wound
IBS
Allergy History:
diazepam Allergy (Verified 03/24/24 22:11)
BENZODIAZEPINES
tamsulosin [From Flomax] Allergy (Verified 02/14/24 18:24)
Nightmares
Medications Reviewed: Yes
Current Antibiotics:
meropenem
Social History
Tobacco: Non-Smoker
Alcohol: None
Drug: None
Personal:
Family History
Family History: Not Pertinent
Review of Systems
Review of Systems
General: Fever, Chills and Change in Appetite
HEENT: Negative Sinus Problems, Headache or Pharyngitis
Cardiovascular: Negative Chest Pain or Dyspnea
Respiratory: Negative Dyspnea or Cough
Gasteroenterology: Other (no diarrhea); Negative Nausea or Vomiting
Genital / Urological: Negative Hematuria or Flank Pain
Endocrine: Weakness
Neurological: Negative Headache
All systems: All other systems were reviewed and were negative
Vital Signs
Temp Pulse Resp BP Pulse Ox
100.1 F 105 25 102/59 97
05/04/24 07:00 05/04/24 06:00 05/04/24 06:00 05/04/24 06:00 05/04/24 06:11
Selected Entries
05/04/24
00:38 05/04/24
00:44
Temp 103 F H 103.8 F H
Physical Exam
Physical Exam
Constitutional: Acutely Ill
Eyes: No Conjunctival Hemorrhage and Sclera Anicteric
Cardiovascular: Regular Rate and S1/S2
Pulmonary: Clear
Gastrointestinal: Soft, Non Tender, Non Distended and Normal Bowel Sounds
Genito-Urinary: Boss, Clear Urine and Other (Right scrotum indurated and tender)
Extremities: Negative Edema
Neurological: Other (lethargic)
Lab / Diagnostic Study Results
05/04/24 05:07
05/04/24 05:07
Abs Immat Gran (auto) 0.2 10^3/uL (0-0.05) H 05/04/24 00:45
Absolute Neuts (auto) 20.1 10^3/uL (1.4-6.5) H 05/04/24 00:45
Absolute Lymphs (auto) 0.8 10^3/uL (1.2-3.4) L 05/04/24 00:45
Absolute Monos (auto) 0.7 10^3/uL (0.1-0.6) H 05/04/24 00:45
Absolute Basos (auto) 0.1 10^3/uL (0-0.2) 05/04/24 00:45
Immature Gran % 0.7 % (0-0.5) H 05/04/24 00:45
Neutrophils % 91.8 % (42.2-75.2) H 05/04/24 00:45
Lymphocytes % 3.7 % (20.5-51.1) L 05/04/24 00:45
Monocytes % 3.2 % (1.7-9.3) 05/04/24 00:45
Eosinophils % 0.4 % (0-6) 05/04/24 00:45
Basophils % 0.2 % (0-2) 05/04/24 00:45
Lactic Acid Cancelled 05/04/24 04:45
Ur Squamous Epith Cells >30 /LPF (Few) 05/04/24 00:45
Microbiology Results
Micro:
05/04/24 00:45 Blood Culture - Pending
Blood/Venous
05/04/24 00:45 Urine Culture - Pending
Urine
05/04/24 00:45 Blood Culture - Pending
Blood/Venous
05/04/24 CT a/p: Boss catheter is present with balloon appearing to be within the bladder lumen, and the bladder is decompressed. No evidence for stranding of the fat surrounding the bladder. Normal unenhanced appearance of both kidneys.
Assessment / Plan
# CAUTI
# Suspect right scrotal abscess vs epididymitis
# Sepsis. Leukocytosis worse
# Neurogenic bladder with boss since 04/22/24.
# Zosyn, cefepime intolerance
- Agree with scrotal US
- Follow blood cx's, Ucx
- Continue meropenem
- Trend temps, wbc
[2024-05-04] MEDS: REMERON 7.5 MG PO (21:06)
[2024-05-04] MEDS: NAMENDA 10 MG PO (21:06)
[2024-05-04] MEDS: SENOKOT PO (21:07)
--- NOTE | 2024-05-04 21:33 | PTCARENOTE ---
Pt at bedside reports some difficulty swallowing at home, but reports pt is able to swallow pills crushed in applesauce. This RN crushed meds in applesauce and pt was able to swallow with prompting to open mouth. Pt c/o pain in scrotum. Tremors
and stiffness present, pillow placed on pt lap to prevent hands from resting on sore groin. Pt refused turning at this time.
[2024-05-05] VITALS (14 sets, daily range): BP systolic 90–172; BP diastolic 51–124; PULSE 83–97; O2SAT 97–100; BMI 28.8
[2024-05-05] MEDS: MERREM 500 MG IV ×4 (03:06→19:19)
[2024-05-05] MEDS: STERILE WATER FOR INJECTION 10 ML IV ×4 (03:06→19:19)
[2024-05-05 06:39] LABS: % Basophils 0.4 % (0-2); % Eosinophils 1.2 % (0-6); % Immature Granulocytes 0.7 % (0-0.5); % Lymphocytes 7.6 % (20.5-51.1); % Neutrophils 85.1 % (42.2-75.2); Absolute Basophils 0.1 10^3/uL (0-0.2); Absolute Eosinophils 0.3 10^3/uL (0-0.7); Absolute Immature Granulocytes 0.2 10^3/uL (0-0.05); Absolute Lymphocytes 1.8 10^3/uL (1.2-3.4); Absolute Monocytes 1.2 10^3/uL (0.1-0.6); Absolute Neutrophils 19.9 10^3/uL (1.4-6.5); Hematocrit 36.9 % (39.0-52.0); Hemoglobin 12.8 g/dL (13.0-18.0); Mean Corp Hgb Conc. 34.7 g/dL (33.0-37.0); Mean Corpuscular Hgb 30.9 pg (27.0-31.0); Mean Corpuscular Volume 89.1 fL (80.0-94.0); Mean Platelet Volume 10.1 fL (7.4-10.4); Nucleated Red Blood Cells % 0 % (-); Platelet Count 197 10^3/uL (130-400); Red Blood Cell Count 4.14 10^6/uL (4.70-6.10); Red Cell Dist. Width 12.4 % (11.5-14.5); White Blood Cell Count 23.4 10^3/uL (4.8-10.8)
--- NOTE | 2024-05-05 08:00 | PTCARENOTE ---
PT AAOx3 tremulous room air on 94% Pt very rigid speech is garbled . Scrotum swollen
[2024-05-05] MEDS: COLACE PO ×2 (08:22→20:06)
[2024-05-05] MEDS: MIRALAX PO (08:22)
[2024-05-05] MEDS: NAMENDA 10 MG PO ×2 (08:22→19:19)
--- NOTE | 2024-05-05 08:40 | PTOTSP ---
Speech Language Pathology
Pt seen for clinical bedside swallow evaluation. reported some leakage of saliva/liquids from L side of mouth at baseline with weakness and positioning. She also reported crushing meds in puree, but otherwise, pt tolerates regular solids/thin
liquids. He avoids some hard meats given missing molars.
This date, P.O. trials of puree, regular solids, and thin liquids provided. Slightly prolonged mastication of regular solids noted, but this was functional given additional time. No overt signs of aspiration.
VSE not indicated at this time as pt has not had PNA before and does not currently. He also tolerates diet well at home per report. Discussed option of outpatient VSE in the future if difficulty increases.
Recommend:
(1) Regular solids/thin liquids
(2) Aspiration precautions: sit upright, slow rate, ensure oral cavity clear post P.O. intake
(3) Meds crushed in puree
(4) WAITER/WAITRESS CAPTAIN to sign off. Please reconsult as indicated.
--- NOTE | 2024-05-05 09:30 | WOUNDNOTE ---
NEW RN NOTE: Asked to see patient for sacral ulcer, patient turned with assist from . Sacrum is blanchable red, heels intact. Will cancel consult, nurse Yasmany hansen.
--- NOTE | 2024-05-05 10:23 | W.PN.ID1 ---
Date of Service
Date of Service: May 05, 2024
Today's Communication
Continue meropenem.
Assessment / Plan
# Right epididymitis/orchitis
# Suspect CAUTI
# Sepsis. Fever and Leukocytosis improving
# Neurogenic bladder with boss since 04/22/24.
# Zosyn, cefepime intolerance
- Blood cx's neg to date
- Ucx: Pseudomonas
- Continue meropenem (d3)
- Trend temps, wbc
#Additional Past Medical History:
Reactive airway disease
BPH status post TURP
Neurogenic bladder� straight catheterizations as needed in the past; has boss since 04/22/24
CKD3
Posterior cortical atrophy with left-sided weakness, sensory deficit, visual deterioration
Fatty liver
Sacral wound
IBS
Chief Complaint
-: UTI
Subjective / Review of Systems
More alert today.
Vital Signs / Physical Exam
Vital Signs
Vital Signs
Temp Pulse Resp BP Pulse Ox
97.9 F 78 23 135/95 96
05/05/24 07:00 05/05/24 06:00 05/05/24 06:00 05/05/24 06:00 05/05/24 06:00
Physical Exam
Constitutional: Comfortable
Cardiovascular: Regular Rate and S1/S2
Pulmonary: Clear
Gastrointestinal: Soft, Non Tender and Non Distended
Genito-Urinary: Boss and Clear Urine
Neurological: Awake and Alert
Objective Data
Lab Data
Lab Results
05/05/24 06:15
05/04/24 05:07
Estimated Creat Clear 55 ml/min 05/04/24 05:07
Lactic Acid Cancelled 05/04/24 04:45
Total Bilirubin 1.3 mg/dl (0.2-1.3) 05/04/24 05:07
AST 27 U/L (17-59) 05/04/24 05:07
ALT 21 U/L (0-50) 05/04/24 05:07
Alkaline Phosphatase 86 U/L (38-126) 05/04/24 05:07
Most recent labs reviewed.
Micro Results:
05/04/24 00:45 Urine Culture - Preliminary
Urine Pseudomonas aeruginosa
05/04/24 00:45 Blood Culture - Preliminary
Blood/Venous No Growth in 24 hours- Final report to follow
05/04/24 00:45 Blood Culture - Preliminary
Blood/Venous No Growth in 24 hours- Final report to follow
05/04/24 CT a/p: Boss catheter is present with balloon appearing to be within the bladder lumen, and the bladder is decompressed. No evidence for stranding of the fat surrounding the bladder. Normal unenhanced appearance of both kidneys.
Care Review
Plan reviewed with: Physician (Dr. Merritt)
[2024-05-05] MEDS: NSS 1000 IV (10:32)
--- NOTE | 2024-05-05 12:55 | CM ---
Addendum entered by Melody Gonsales 05/05/24 14:38:
Referral sent to [facility]
Original Note:
CM reviewed patient's chart. Patient laying in hospital bed in room and alert with some slurred and having some word-finding issues with his speech. Caregiver also at bedside. CM introduced self and role. CM spoke with patient and caregiver at
bedside. concrete block molder attempted to call patient's , but was unsuccessful.
CM attempted to call , and left a VM.
Patient's caregiver assisted with assessment. It was confirmed patient is still current with [facility] for SN. The placed a boss catheter into patient on 04/22/24. She still continues to come out to home. He continues with a boss catheter. He
was last discharged with IV antibiotics (with [facility]), which have been completed. He has a private duty caregiver who comes in 18 hours/3xs a week. Spouse and daughter care for patient on days caregiver is absent.
PCP: Dr. Medhat Ibanez
Pharmacy: [facility]
Living situation: Patient lives with his , daughter and caregiver, who all provide care for patient. He lives in a 2-story home.
Finances: Patient denies any social insecurities. He able to afford his housing, clothing, medications, food, utilities and transportation.
DME/Ambulation: Patient owns a transport chair, w/c, has an elevator on 2nd floor and ramp. Ambulates with a gait and is followed.
Transportation: Patient will most likely need transportation set up once he is discharged. Patient does not drive.
Agreeable to home health care?: Yes, current with [facility]. Current with Palliative care.
Case management spoke with patient about discharge plan and gave CM's main office phone number. Caregiver and patient verbalized understanding.
ANTICIPATED DISCHARGE DISPOSITION:
Return to home. Will have resumption of care with [facility].
CM will continue to follow case and available for further assistance.
--- NOTE | 2024-05-05 13:06 | W.PN.URO.CBU ---
Today's Communication / Plan
-
heat elevate scrotum
Assessment / Plan
-
epididymorochits with foey defer to id for iv ans will add ansaids heat elevation to tx plan will consider sp tub or revert back to cic after this hositalzation
Diagnosis
-
Date of Service: May 05, 2024
-
Patient Diagnosis:acute epidiymooorchitis in pt with ngb and indwelling boss
Post Op Day:
Subjective
-
panful swollen scrotum
Objective
-
Vital Signs
Temp Pulse Resp BP Pulse Ox
97.5 F 78 23 135/95 96
05/05/24 11:00 05/05/24 06:00 05/05/24 06:00 05/05/24 06:00 05/05/24 08:00
Intake and Output
05/04/24 05/05/24 05/06/24
06:59 06:59 06:59
Intake Total 600 / 600 1200 / 1200
Output Total 325 / 325 1225 / 1225 600 / 600
Balance 275 / 275 -25 / -25 -600 / -600
Intake:
IV fluids (Total) 600 / 600 1200 / 1200
Output:
Urine, Boss 325 / 325 775 / 775 600 / 600
Urine, Voided 450 / 450
Other:
Number of unmeasured liquid
stools
Rectum 1
Laboratory Results
05/05/24 06:15
05/04/24 05:07
Review of Systems
-
: Difficulty Voiding and Other (epidiymo orchiitis)
Physical Exam
-
General - well developed, well nourished, no acute distress
Chest - clear bilaterally
Abdomen - soft, non-tender, positive bowel sounds, no CVAT, no incisional pain or distention
Genitalia - normalhas boss tende swollen scrotum but testes not fxed no fourbeiers
Rectal - normal
Skin - warm & dry with no rash
Neuro - AOx3, no motor deficits
Extremities - no clubbing, no cyanosis, no edema
Incision - clean, dry
Dressing - clean, dry, intact
Care Review
Data Reviewed
Discussed with: Hospitalist, Nursing and Family
Ultrasound: Image Pers Reviewed
--- NOTE | 2024-05-05 14:02 | W.PN.HOSP.TC ---
Today's Communication/Plan
-
continue IV abx pending cultures
continue NSAIDs, heat, elevation as directed by Urology
Assessment / Plan
Assessment / Plan
Assessment:
Sepsis POA (Fever, leukocytosis, UTI)
- CT without obstructive pathology
- US: Sonographic findings suggestive of right-sided epididymoorchitis, as described. There is an associated moderate right hydrocele with septations.
- Urology following; use NSAIDs for treatment/pain control along with heat application
- ID following; continue Merrem, cultures growing Pseudomonas
Loose stools
- with multiple recent course of Abx, will check stool studies
Acute metabolic encephalopathy from UTI/Sepsis
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
- monitor mentation as treatment continues
Hx of recurrent UTIs - Chanel catheter placed April 22 under the guidance of urology in the hopes of reducing frequent infections. Apparently he was self catheterizing multiple times prior to that leading to recurrent UTIs.
Chronic tremor/chronic left-sided weakness
Neurogenic bladder -maintain Chanel catheter.
CKD 3a -monitor for now. Renal function near baseline.
Sacral wound
DVT ppx: SCDs
code: DNR
Anticipated Discharge: > 48 hours
Subjective/Interval History
-
Date of Service: May 05, 2024
reports some scrotal pain no other complaints
Objective Data
-
Labs:
Laboratory Results
05/05/24
06:15
WBC 23.4 H
Hgb 12.8 L
Hct 36.9 L
Plt Count 197
Vital Signs:
Vital Signs
Temp Pulse Resp BP Pulse Ox
97.5 F 78 23 135/95 96
05/05/24 11:00 05/05/24 06:00 05/05/24 06:00 05/05/24 06:00 05/05/24 08:00
I&O
05/04/24 05/05/24 05/06/24
06:59 06:59 06:59
Intake Total 600 / 600 1200 / 1200
Output Total 325 / 325 1225 / 1225 600 / 600
Balance 275 / 275 -25 / -25 -600 / -600
Physical Exam
-
General: No Apparent Distress
HEENT: Normocephalic and Atraumatic
Respiratory: Negative Wheezes
Cardiac: Regular Rhythm
GI: Soft and Nontender
Genito-urinary: Chanel
Neuro: AO x 3
Psych: Calm
Data Reviewed
-
Total Time Spent with Patient (in minutes): 44
Labs: Labs Reviewed by me
--- NOTE | 2024-05-05 15:41 | PTCARENOTE ---
Scrotum now elevated on warm blanke. Physical therapy worked with pt very unsteady very rigid
[2024-05-05] MEDS: PROTONIX IV 40 MG IV (16:35)
[2024-05-05] MEDS: NSS (PRESERVATIVE FREE) 10 ML IV (16:37)
[2024-05-05] MEDS: TYLENOL 650 MG PO (19:19)
[2024-05-05] MEDS: SEROQUEL 25 MG PO (20:00)
[2024-05-05] MEDS: REMERON 7.5 MG PO (21:05)
[2024-05-05] MEDS: SENOKOT PO (21:08)
[2024-05-06] VITALS (12 sets, daily range): BP systolic 89–133; BP diastolic 49–103; PULSE 68; O2SAT 97
[2024-05-06] MEDS: MERREM 500 MG IV ×4 (02:08→19:35)
[2024-05-06] MEDS: STERILE WATER FOR INJECTION 10 ML IV ×4 (02:09→19:35)
--- NOTE | 2024-05-06 03:14 | PTCARENOTE ---
Pt with baseline tremor, had one episode of increased tremors/agitation with slight tachycardia, treated with PRN seroquel per request of . Assessment as documented.
[2024-05-06 06:35] LABS: % Basophils 0.4 % (0-2); % Immature Granulocytes 0.4 % (0-0.5); % Lymphocytes 14.1 % (20.5-51.1); % Monocytes 6.8 % (1.7-9.3); % Neutrophils 74.3 % (42.2-75.2); Absolute Basophils 0.1 10^3/uL (0-0.2); Absolute Eosinophils 0.5 10^3/uL (0-0.7); Absolute Immature Granulocytes 0.1 10^3/uL (0-0.05); Absolute Lymphocytes 1.9 10^3/uL (1.2-3.4); Absolute Monocytes 0.9 10^3/uL (0.1-0.6); Hematocrit 38.2 % (39.0-52.0); Hemoglobin 12.7 g/dL (13.0-18.0); Mean Corp Hgb Conc. 33.2 g/dL (33.0-37.0); Mean Corpuscular Hgb 30.4 pg (27.0-31.0); Mean Corpuscular Volume 91.4 fL (80.0-94.0); Mean Platelet Volume 10.2 fL (7.4-10.4); Nucleated Red Blood Cells % 0 % (-); Platelet Count 226 10^3/uL (130-400); Red Blood Cell Count 4.18 10^6/uL (4.70-6.10); Red Cell Dist. Width 12.6 % (11.5-14.5); White Blood Cell Count 13.5 10^3/uL (4.8-10.8)
[2024-05-06 07:09] LABS: Blood Urea Nitrogen 22 mg/dl (9-20); Calcium 8.5 mg/dl (8.4-10.2); Carbon Dioxide 25 mmol/L (22-30); Chloride 110 mmol/L (98-107); Estimated Creatinine Clearance 65 ml/min; Glucose 94 mg/dl (70-99); Potassium 4.2 mmol/L (3.5-5.1); Sodium 140 mmol/L (135-145); eGFR > 60.00
[2024-05-06] MEDS: MIRALAX PO ×2 (07:45→07:53)
[2024-05-06] MEDS: NSS (PRESERVATIVE FREE) 10 ML IV (07:46)
[2024-05-06] MEDS: PROTONIX IV 40 MG IV (07:46)
[2024-05-06] MEDS: COLACE 100 MG PO (07:47)
[2024-05-06] MEDS: NAMENDA 10 MG PO ×2 (07:47→19:35)
[2024-05-06] MEDS: TORADOL 15 MG IV (09:18)
--- NOTE | 2024-05-06 09:31 | PTCARENOTE ---
Pt AAO a bit fogetful. tremulous and very rigid
--- NOTE | 2024-05-06 10:03 | W.PN.URO.CBU ---
Today's Communication / Plan
-
once stanble home with folety o ntargeted po abs and ansais
Assessment / Plan
-
epididymorochits with foey defer to id for iv ans will add ansaids heat elevation to tx plan will consider sp tub or revert back to cic after this hositalzation
Diagnosis
-
Date of Service: May 06, 2024
-
Patient Diagnosis:
Post Op Day:
Patient Diagnosis:acute epidiymooorchitis in pt with ngb and indwelling boss
Post Op Day:
Subjective
-
less swelling no fevr
Objective
-
Vital Signs
Temp Pulse Resp BP Pulse Ox
97.8 F 55 17 118/52 97
05/06/24 07:00 05/06/24 06:00 05/06/24 06:00 05/06/24 02:00 05/06/24 09:07
Intake and Output
05/05/24 05/06/24 05/07/24
06:59 06:59 06:59
Intake Total 1200 / 1200 300 / 300
Output Total 1225 / 1225 1300 / 1300
Balance -25 / -25 -1300 / -1300 300 / 300
Intake:
IV fluids (Total) 1200 / 1200
IV piggybacks 300 / 300
Output:
Urine, Boss 775 / 775 1300 / 1300
Urine, Voided 450 / 450
Other:
Number of unmeasured liquid
stools
Rectum 1
Laboratory Results
05/06/24 06:23
05/06/24 06:23
Review of Systems
-
: Difficulty Voiding and Other (test pain swelling)
Physical Exam
-
General - well developed, well nourished, no acute distress
Chest - clear bilaterally
Abdomen - soft, non-tender, positive bowel sounds, no CVAT, no incisional pain or distention
Genitalia - normal
Rectal - normal
Skin - warm & dry with no rash
Neuro - AOx3, no motor deficits
Extremities - no clubbing, no cyanosis, no edema
Incision - clean, dry
Dressing - clean, dry, intact
Care Review
Data Reviewed
Discussed with: Nursing and Family
--- NOTE | 2024-05-06 11:37 | W.PN.ID1 ---
Date of Service
Date of Service: May 06, 2024
Today's Communication
- Continue meropenem (d4)
-At time of discharge, transition to cipro 750mg po bid through 05/16/24.
QTc normal.
Per , she will hold prn quetiapine while on cipro.
Assessment / Plan
# Right epididymitis/orchitis
# Neurogenic bladder with boss since 04/22/24.
# Leukocytosis - improving
# Fever resolved
# Zosyn, cefepime intolerance
- Blood cx's neg to date
- Ucx: Pseudomonas, pansensitive
- Continue meropenem (d4)
-At time of discharge, transition to cipro 750mg po bid through 05/16/24.
QTc normal.
Per , she will hold prn quetiapine while on cipro.
- Follow wbc
#Additional Past Medical History:
Reactive airway disease
BPH status post TURP
Neurogenic bladder� straight catheterizations as needed in the past; has boss since 04/22/24
CKD3
Posterior cortical atrophy with left-sided weakness, sensory deficit, visual deterioration
Fatty liver
Sacral wound
IBS
Chief Complaint
-: UTI
Subjective / Review of Systems
Sitting up in chair. Alert.
Vital Signs / Physical Exam
Vital Signs
Vital Signs
Temp Pulse Resp BP Pulse Ox
97.8 F 55 17 118/52 97
05/06/24 07:00 05/06/24 06:00 05/06/24 06:00 05/06/24 02:00 05/06/24 09:07
Physical Exam
Constitutional: No Acute Distress and Comfortable
Pulmonary: Clear
Gastrointestinal: Soft, Non Tender and Non Distended
Genito-Urinary: Boss, Clear Urine and Other (Right scrotum tender/indurated - decreased from yesterday)
Neurological: AO x 3
Objective Data
Lab Data
Lab Results
05/06/24 06:23
05/06/24 06:23
Estimated Creat Clear 65 ml/min 05/06/24 06:23
Lactic Acid Cancelled 05/04/24 04:45
Total Bilirubin 1.3 mg/dl (0.2-1.3) 05/04/24 05:07
AST 27 U/L (17-59) 05/04/24 05:07
ALT 21 U/L (0-50) 05/04/24 05:07
Alkaline Phosphatase 86 U/L (38-126) 05/04/24 05:07
Most recent labs reviewed.
Micro Results:
05/04/24 00:45 Urine Culture - Final
Urine Pseudomonas aeruginosa
05/04/24 00:45 Blood Culture - Preliminary
Blood/Venous No Growth in 48 hours- Final report to follow
05/04/24 00:45 Blood Culture - Preliminary
Blood/Venous No Growth in 48 hours- Final report to follow
05/04/24 CT a/p: Boss catheter is present with balloon appearing to be within the bladder lumen, and the bladder is decompressed. No evidence for stranding of the fat surrounding the bladder. Normal unenhanced appearance of both kidneys.
--- NOTE | 2024-05-06 11:51 | PTCARENOTE ---
Pt was OOB to chair now back in bed heavy assist of two . Warm blanket elevating scrotum swelling is decreasing. at bedside
[2024-05-06] MEDS: VISBIOME 2 CAP PO (12:56)
--- NOTE | 2024-05-06 14:29 | W.PN.HOSP.TC ---
Today's Communication/Plan
-
IV abx
tomorrow plan dc home/vN with oral Abx and Urology f/u
Assessment / Plan
Assessment / Plan
Assessment:
Sepsis POA (Fever, leukocytosis, UTI)
- CT without obstructive pathology
- US: Sonographic findings suggestive of right-sided epididymoorchitis, as described. There is an associated moderate right hydrocele with septations.
- Urology following; use NSAIDs for treatment/pain control along with heat application
- ID following; cultures growing Pseudomonas. continue Merrem. at time of DC switch to Cipro 750mg po bid through 05/16/24.
Loose stools
- likely Abx associated, very infrequent episodes, no concern for C. Diff
Acute metabolic encephalopathy from UTI/Sepsis
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
- monitor mentation as treatment continues
Hx of recurrent UTIs - Chanel catheter placed April 22 under the guidance of urology in the hopes of reducing frequent infections. Apparently he was self catheterizing multiple times prior to that leading to recurrent UTIs. OP urology f/u.
Chronic tremor/chronic left-sided weakness
Neurogenic bladder
- maintain Chanel catheter.
CKD 3a
- monitor for now. Renal function near baseline.
Sacral wound
DVT ppx: SCDs
code: DNR
Anticipated Discharge: Within 24 hours
Subjective/Interval History
-
Date of Service: May 06, 2024
testicular pain and swelling improving
no fever/chills
Objective Data
-
Labs:
Laboratory Results
05/06/24
06:23
WBC 13.5 H
Hgb 12.7 L
Hct 38.2 L
Plt Count 226
Sodium 140
Potassium 4.2
Chloride 110 H
Carbon Dioxide 25
BUN 22 H
Creatinine 1.1
Glucose 94
Calcium 8.5
Vital Signs:
Vital Signs
Temp Pulse Resp BP Pulse Ox
97.9 F 70 17 125/103 99
05/06/24 11:00 05/06/24 10:00 05/06/24 10:00 05/06/24 10:00 05/06/24 10:00
I&O
05/05/24 05/06/24 05/07/24
06:59 06:59 06:59
Intake Total 1200 / 1200 300 / 300
Output Total 1225 / 1225 1300 / 1300
Balance -25 / -25 -1300 / -1300 300 / 300
Physical Exam
-
General: No Apparent Distress
HEENT: Normocephalic and Atraumatic
Cardiac: Regular Rhythm and S1/S2
Genito-urinary: Chanel
Neuro: AO x 3
Psych: Calm
Data Reviewed
-
Total Time Spent with Patient (in minutes): 45
Labs: Labs Reviewed by me
--- NOTE | 2024-05-06 15:12 | PTCARENOTE ---
chronic boss exchanged for 16 palestinian boss with out incident as ordered.
--- NOTE | 2024-05-06 16:01 | PTCARENOTE ---
upset that boss has not put out urine yet, pt bladder scan for 36 ml . shown med cup that holds 30 ml. And asked to give it time
--- NOTE | 2024-05-06 17:23 | PTCARENOTE ---
Still no urine in Cath concerened pt bladder scan for 68 ML
[2024-05-06] MEDS: SEROQUEL 25 MG PO (18:31)
[2024-05-06] MEDS: TYLENOL 650 MG PO (19:34)
[2024-05-06] MEDS: COLACE PO (19:55)
[2024-05-06] MEDS: SENOKOT 17.1999999999999993 MG PO (21:19)
[2024-05-06] MEDS: REMERON 7.5 MG PO (21:20)
[2024-05-07] VITALS: BP 112/65
--- NOTE | 2024-05-07 00:25 | PTCARENOTE ---
Pt resting comfortably in bed with daughter at bedside. Scrotum remains elevated with warm blanket. Pt continues with baseline tremor. Denies new complaints at this time. Assessment as documented
[2024-05-07] MEDS: STERILE WATER FOR INJECTION 10 ML IV ×2 (01:42→08:41)
[2024-05-07] MEDS: TYLENOL 650 MG PO ×2 (01:42→08:40)
[2024-05-07] MEDS: MERREM 500 MG IV ×2 (01:42→08:41)
--- NOTE | 2024-05-07 01:44 | PTCARENOTE ---
Daughter c/o pt agitation, this RN assessed pt, provided tylenol for pain, replaced warm blanket elevating scrotum with relief
[2024-05-07 02:31] VITALS: BP 120/59
[2024-05-07 03:54] VITALS: BMI 29.0
[2024-05-07 04:00] VITALS: BP 116/63
[2024-05-07 05:45] LABS: % Basophils 0.7 % (0-2); % Eosinophils 6.4 % (0-6); % Immature Granulocytes 0.2 % (0-0.5); % Lymphocytes 20.9 % (20.5-51.1); % Monocytes 8.9 % (1.7-9.3); % Neutrophils 62.9 % (42.2-75.2); Absolute Basophils 0.1 10^3/uL (0-0.2); Absolute Eosinophils 0.6 10^3/uL (0-0.7); Absolute Lymphocytes 1.9 10^3/uL (1.2-3.4); Absolute Monocytes 0.8 10^3/uL (0.1-0.6); Absolute Neutrophils 5.7 10^3/uL (1.4-6.5); Hematocrit 37.7 % (39.0-52.0); Hemoglobin 13.3 g/dL (13.0-18.0); Mean Corp Hgb Conc. 35.3 g/dL (33.0-37.0); Mean Corpuscular Hgb 30.6 pg (27.0-31.0); Mean Corpuscular Volume 86.7 fL (80.0-94.0); Mean Platelet Volume 10.4 fL (7.4-10.4); Nucleated Red Blood Cells % 0 % (-); Platelet Count 239 10^3/uL (130-400); Red Blood Cell Count 4.35 10^6/uL (4.70-6.10); Red Cell Dist. Width 12.4 % (11.5-14.5)
[2024-05-07 06:09] LABS: Blood Urea Nitrogen 21 mg/dl (9-20); Calcium 8.5 mg/dl (8.4-10.2); Carbon Dioxide 23 mmol/L (22-30); Chloride 111 mmol/L (98-107); Estimated Creatinine Clearance 65 ml/min; Glucose 93 mg/dl (70-99); Potassium 3.8 mmol/L (3.5-5.1); Sodium 141 mmol/L (135-145); eGFR > 60.00
--- NOTE | 2024-05-07 08:26 | W.PN.URO.CBU ---
Today's Communication / Plan
-
per hospitalist
Assessment / Plan
-
epididymorochits with foey defer to id for iv ans will add ansaids heat elevation to tx plan will consider sp tub or revert back to cic after this hositalzation
Diagnosis
-
Date of Service: May 07, 2024
-
Patient Diagnosis:
Post Op Day:
Patient Diagnosis:
Post Op Day:
Patient Diagnosis:acute epidiymooorchitis in pt with ngb and indwelling boss
Post Op Day:
Subjective
-
alice pain but decreasd along epidiymis
Objective
-
Vital Signs
Temp Pulse Resp BP Pulse Ox
98 F 56 17 116/63 97
05/07/24 08:19 05/07/24 06:00 05/07/24 06:00 05/07/24 04:00 05/07/24 06:00
Intake and Output
05/06/24 05/07/24 05/08/24
06:59 06:59 06:59
Intake Total 420 / 420
Output Total 1300 / 1300 1250 / 1250
Balance -1300 / -1300 -830 / -830
Intake:
Oral fluids 120 / 120
IV piggybacks 300 / 300
Output:
Urine, Boss 1300 / 1300 1250 / 1250
Laboratory Results
05/07/24 05:27
05/07/24 05:27
Review of Systems
-
: Difficulty Voiding
Physical Exam
-
General - well developed, well nourished, no acute distress
Chest - clear bilaterally
Abdomen - soft, non-tender, positive bowel sounds, no CVAT, no incisional pain or distention
Genitalia - normal
Rectal - normal
Skin - warm & dry with no rash
Neuro - AOx3, no motor deficits
Extremities - no clubbing, no cyanosis, no edema
Incision - clean, dry
Dressing - clean, dry, intact
Care Review
Data Reviewed
Discussed with: Family (daughter at bedside)
--- NOTE | 2024-05-07 08:30 | PTCARENOTE ---
Patient received from nightclub manager. Patient resting comfortably in bed. AAOx2-3ish, VSS. No events noted overnight. No verbal complaints of pain at this time although daughter, who stayed the night, said there has been some signs. See MAR.
Patient still with scrotal edema from hydrocele, warm blanket placed for comfort. Possible D/C today. Call savage in reach.
[2024-05-07] MEDS: MIRALAX 17 GRAMS PO (08:39)
[2024-05-07] MEDS: VISBIOME 2 CAP PO (08:40)
[2024-05-07] MEDS: NAMENDA 10 MG PO (08:40)
[2024-05-07] MEDS: PROTONIX IV 40 MG IV (08:41)
[2024-05-07] MEDS: NSS (PRESERVATIVE FREE) 10 ML IV (08:41)
[2024-05-07] MEDS: COLACE 100 MG PO (08:41)
[2024-05-07 09:01] VITALS: BP 116/65
--- NOTE | 2024-05-07 10:03 | W.PN.HOSP.TC ---
Today's Communication/Plan
-
dc home/VN today
Assessment / Plan
Assessment / Plan
Assessment:
Sepsis POA (Fever, leukocytosis, UTI)
- CT without obstructive pathology
- US: Sonographic findings suggestive of right-sided epididymoorchitis, as described. There is an associated moderate right hydrocele with septations.
- Urology following; use NSAIDs for treatment/pain control along with heat application
- ID following; cultures growing Pseudomonas. continue Merrem. at time of DC switch to Cipro 750mg po bid through 05/16/24.
Loose stools
- likely Abx associated, very infrequent episodes, no concern for C. Diff
Acute metabolic encephalopathy from UTI/Sepsis
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
- monitor mentation as treatment continues
Hx of recurrent UTIs - Chanel catheter placed April 22 under the guidance of urology in the hopes of reducing frequent infections. Apparently he was self catheterizing multiple times prior to that leading to recurrent UTIs. OP urology f/u.
Chronic tremor/chronic left-sided weakness
Neurogenic bladder
- maintain Chanel catheter.
CKD 3a
- monitor for now. Renal function near baseline.
Sacral wound
DVT ppx: SCDs
code: DNR
More than 30 minutes spent in discharge including
Final examination of the patient
Summarizing hospital stay
Instructions for continuing care to all relevant caregivers
Preparation of discharge records, prescriptions, and referral forms
Total time spent (in minutes):42
Anticipated Discharge: Today
Subjective/Interval History
-
Date of Service: May 07, 2024
testicular pain improving
WBC resolved
Objective Data
-
Labs:
Laboratory Results
05/07/24
05:27
WBC 9.0
Hgb 13.3
Hct 37.7 L
Plt Count 239
Sodium 141
Potassium 3.8
Chloride 111 H
Carbon Dioxide 23
BUN 21 H
Creatinine 1.1
Glucose 93
Calcium 8.5
Vital Signs:
Vital Signs
Temp Pulse Resp BP Pulse Ox
98 F 56 17 116/63 97
05/07/24 08:19 05/07/24 06:00 05/07/24 06:00 05/07/24 04:00 05/07/24 06:00
I&O
05/06/24 05/07/24 05/08/24
06:59 06:59 06:59
Intake Total 420 / 420
Output Total 1300 / 1300 1250 / 1250
Balance -1300 / -1300 -830 / -830
Physical Exam
-
General: No Apparent Distress
HEENT: Normocephalic and Atraumatic
Respiratory: Negative Wheezes
Cardiac: Regular Rhythm and S1/S2
GI: Soft
Genito-urinary: Chanel
Neuro: AO x 3
Psych: Calm
Data Reviewed
-
Total Time Spent with Patient (in minutes): 42
Labs: Labs Reviewed by me
--- NOTE | 2024-05-07 10:11 | W.DS.TRANS ---
DC Summary - Registered Associate
-
Discharge Instructions:
Discharge Diagnosis/Procedures sepsis, UTI (right-sided epididymoorchitis)
Diet Regular
Activity As tolerated
Bathing Restrictions None
Other Services VN
Instructions:
Stand-Alone Forms:
Changes to Home Medications: No
Discharge Medications:
DC Medications w/original date entered in [facility]
memantine 10 mg tablet 10 mg PO BID Neurological Condition 09/09/20
methenamine hippurate 1 gram tablet 1 g PO BID Urinary Issue 02/14/24
mirtazapine 7.5 mg tablet 7.5 mg PO HS Mental Health 02/14/24
cranberry 500 mg capsule 1,000 mg PO NOON Supplement 03/24/24
quetiapine 25 mg tablet (Seroquel) 25 mg PO QPM Mental Health/Anxiety 03/27/24
Lactobac/Bifidobac [Visbiome] 2 cap PO DAILY #100 caps 05/07/24
acetaminophen 325 mg tablet 650 mg (2 x 325 mg) PO Q4HPRN PRN Mild Pain / Temp > 101 #100 tabs 05/07/24
ciprofloxacin HCl 250 mg tablet (Cipro) 750 mg (3 x 250 mg) PO BID 10 days #60 tabs 05/07/24
docusate sodium 100 mg capsule 100 mg PO BID #60 caps 05/07/24
ibuprofen 200 mg tablet (Motrin IB) 200 mg PO Q6H PRN fever or pain #30 tabs 05/07/24
polyethylene glycol 3350 17 gram oral powder packet (HealthyLax) 17 g PO DAILY #30 ea 05/07/24
Home Medication Changes
Pending Results: No
Total time spent discharging patient (in min): 42
--- NOTE | 2024-05-07 10:17 | CM ---
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
Plan; Home with spouse
[facility] [phone]
[2024-05-07 11:35] VITALS: BP 106/56
[2024-05-07] MEDS: SEROQUEL 25 MG PO (11:56)
--- NOTE | 2024-05-07 12:57 | PTCARENOTE ---
Patient discharged home via Ambulance transport. Patients at bed, discharge instructions reviewed with and all questions answered. Patient left with all known belongings.
--- NOTE | 2024-05-07 13:13 | W.PN.ID1 ---
Date of Service
Date of Service: May 07, 2024
Assessment / Plan
# Right epididymitis/orchitis
# Neurogenic bladder with boss since 04/22/24.
# Leukocytosis - improving
# Fever resolved
# Zosyn, cefepime intolerance
- Blood cx's neg to date
- Ucx: Pseudomonas, pansensitive
- Continue meropenem (d4)
-At time of discharge, transition to cipro 750mg po bid through 05/16/24.
QTc normal.
Per , she will hold prn quetiapine while on cipro.
- Follow wbc
#Additional Past Medical History:
Reactive airway disease
BPH status post TURP
Neurogenic bladder� straight catheterizations as needed in the past; has boss since 04/22/24
CKD3
Posterior cortical atrophy with left-sided weakness, sensory deficit, visual deterioration
Fatty liver
Sacral wound
IBS
Chief Complaint
-: UTI and Other ( Right epididymitis/orchitis)
Subjective / Review of Systems
no further fevers
bp stable
resolved leukocytosis
cr stable
last qtc 430
Vital Signs / Physical Exam
Vital Signs
Vital Signs
Temp Pulse Resp BP Pulse Ox
97.7 F 59 18 106/56 95
05/07/24 11:15 05/07/24 10:00 05/07/24 10:00 05/07/24 11:35 05/07/24 12:22
Objective Data
Lab Data
Lab Results
05/07/24 05:27
05/07/24 05:27
Estimated Creat Clear 65 ml/min 05/07/24 05:27
Lactic Acid Cancelled 05/04/24 04:45
Total Bilirubin 1.3 mg/dl (0.2-1.3) 05/04/24 05:07
AST 27 U/L (17-59) 05/04/24 05:07
ALT 21 U/L (0-50) 05/04/24 05:07
Alkaline Phosphatase 86 U/L (38-126) 05/04/24 05:07
Most recent labs reviewed.
Micro Results:
05/04/24 00:45 Blood Culture - Preliminary
Blood/Venous No Growth in 72 hours- Final report to follow
05/04/24 00:45 Blood Culture - Preliminary
Blood/Venous No Growth in 72 hours- Final report to follow
05/04/24 00:45 Urine Culture - Final
Urine Pseudomonas aeruginosa
05/04/24 CT a/p: Boss catheter is present with balloon appearing to be within the bladder lumen, and the bladder is decompressed. No evidence for stranding of the fat surrounding the bladder. Normal unenhanced appearance of both kidneys.
== END 2024-05-07 12:50 | disposition home health service (06) | DRG 698 ==
LOC: IMU 03:29
PROVIDERS: Hospitalist; ADMITTING PHYSICIAN Hospitalist; ATTENDING PHYSICIAN Internal Medicine; CONSULT PHYSICIAN Internal Medicine Infectious Disease; CONSULT PHYSICIAN Specialist; EMERGENCY PHYSICIAN Emergency Medicine
DX: T83.511A Infection and inflammatory reaction due to indwelling urethral catheter, initial encounter (principal); A41.52 Sepsis due to Pseudomonas; G92.8 Other toxic encephalopathy; F02.818 Dementia in other diseases classified elsewhere, unspecified severity, with other behavioral disturbance; F02.84 Dementia in other diseases classified elsewhere, unspecified severity, with anxiety; G81.94 Hemiplegia, unspecified affecting left nondominant side; Y84.6 Urinary catheterization as the cause of abnormal reaction of the patient, or of later complication, without mention of misadventure at the time of the procedure; N39.0 Urinary tract infection, site not specified; N40.0 Benign prostatic hyperplasia without lower urinary tract symptoms; N31.9 Neuromuscular dysfunction of bladder, unspecified; G31.9 Degenerative disease of nervous system, unspecified; N18.31 Chronic kidney disease, stage 3a; N43.3 Hydrocele, unspecified; F32.A Depression, unspecified; R25.1 Tremor, unspecified; Y92.9 Unspecified place or not applicable; K76.0 Fatty (change of) liver, not elsewhere classified; K56.41 Fecal impaction; N45.3 Epididymo-orchitis; Z66 Do not resuscitate; Z87.440 Personal history of urinary (tract) infections; Z85.828 Personal history of other malignant neoplasm of skin; Z88.8 Allergy status to other drugs, medicaments and biological substances
CPT/HCPCS: 71045; 74176; 76870; 80048; 80053; 80076; 81003; 81015; 83605; 85025; 85027; 87040; 87077; 87086; 87186; 92610; 93005; 93976; 96361; 96374; 97163; 97167; 97530; 99285; J2185

== ENCOUNTER 2024-08-15 13:02 | Inpatient (IN) | payer MEDICARE, OTHER, SELFPAY ==
[2024-08-15] VITALS (14 sets, daily range): BP systolic 100–151; BP diastolic 42–137
--- NOTE | 2024-08-15 08:35 | ED.GENMED ---
History of Present Illness
General
Chief Complaint: Fever
Source: patient
Exam Limitations: altered mental status
Time Seen by Provider: 08/15/24 08:15
Nursing documentation reviewed up to this point in time: agreed with
History of Present Illness
History of Present Illness:
74-year-old male from home presents with fever cloudy urine
+diarhea
Patient with indwelling Chanel
Apparently last changed about 3 weeks ago
Complains of some nausea without vomiting
Has chronic neurologic condition partially aphasic talking lives at home
Past History
Past History
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
words), UTI, Pseudomonas in the urine, BPH)
ED Past Surgical History: None, Orthopedic (meniscus repair) and Other (anal fissure repair)
Social History
Tobacco: Non-smoker
Alcohol: None
Drug: None
Personal:
Living: with family
Employment: Retired
Review of Systems
Review of Systems
Unable to obtain full review of systems at this time due to: non-verbal
All Other Systems: Not applicable
Constitutional: Reports fever
ABD/GI: Reports nausea; Denies abdominal pain
: Reports no symptoms
Phy Exam
Physical Exam
Physical Exam:
Physical Exam
General: Chronically ill-appearing male
Neck: Lips dry
Heart: Regular
Lungs: no acute respiratory distress. clear bilaterally
Abdomen: Soft nontender Chanel catheter draining cloudy urine
Neuro: Globally weak slow to respond
Skin: no rash
Psychiatric: cooperative
Extremities: no edema.
Course
Orders/Labs/Results
Orders:
Orders
08/15/24 08:28
Complete Blood Count/With Diff Urgent
Comprehensive Metabolic Panel Urgent
Lactic Acid Urgent
08/15/24 08:37
Urinalysis Reflex To Culture Urgent
Date Specimen was Collected: 08/15/24
Time Specimen was Collected: 08:35
Urine Microscopic Reflex Cult Urgent
Urine Culture Urgent
CHARANJIT Source: U
Specimen Description:
Date Specimen was Collected: 08/15/24
Time Specimen was Collected: 08:35
08/15/24 08:39
0.9% Sodium Chloride 1000 ml [Nss] 1,000 ml IV BOLUS
Acetaminophen [Tylenol] 650 mg PO NOW STA
CR Chest - 2 Views Urgent
Comment:
Reason For Exam: fever
08/15/24 08:52
Chanel Placement- Treatment ONCE
Reason for insertion: Chronic Chanel on Admit
Acetaminophen [Tylenol Suspension] 650 mg PO NOW STA
08/15/24 09:22
COVID-19 Antigen Urgent
Source: Nasal Swab
08/15/24 10:55
Meropenem [Merrem] 500 mg IV NOW STA
Abnormal Lab Results
08/15/24 08/15/24
08:28 08:37
WBC 12.1 H 10^3/uL
(4.8-10.8)
RBC 4.16 L 10^6/uL
(4.70-6.10)
Hgb 12.9 L g/dL
(13.0-18.0)
Hct 37.0 L %
(39.0-52.0)
Abs Immat Gran (auto) 0.1 H 10^3/uL
(0-0.05)
Absolute Neuts (auto) 10.2 H 10^3/uL
(1.4-6.5)
Absolute Lymphs (auto) 1.0 L 10^3/uL
(1.2-3.4)
Absolute Monos (auto) 0.7 H 10^3/uL
(0.1-0.6)
Neutrophils % 84.1 H %
(42.2-75.2)
Lymphocytes % 8.1 L %
(20.5-51.1)
Chloride 108 H mmol/L
(98-107)
BUN 25 H mg/dl
(9-20)
Glucose 112 H mg/dl
(70-99)
Calcium 8.1 L mg/dl
(8.4-10.2)
Total Protein 5.7 L g/dl
(6.3-8.2)
Albumin 3.1 L g/dl
(3.5-5.0)
Ur Occult Blood Reflex 3+ A
(Negative)
Leukocyte Esterase Rfl 2+ A
(Negative)
Urine RBC 21-25 A /HPF
(0-2)
Urine WBC (Reflex) >100 A /HPF
(0-5)
Urine Bacteria (Reflex) Many A
(Negative)
Urine Albumin (Reflex) 2+ A
(Neg - Trace)
08/15/24 08:28
08/15/24 08:28
Vital Signs
Initial and Last Documented VS:
Initial Vital Signs
Temp Pulse Resp BP Pulse Ox
100.5 F H 80 16 143/107 95
08/15/24 08:18 08/15/24 08:18 08/15/24 08:18 08/15/24 08:18 08/15/24 08:18
Last Documented Vital Signs
Temp Pulse Resp BP Pulse Ox
100.5 F H 66 16 105/42 96
08/15/24 08:18 08/15/24 10:00 08/15/24 10:03 08/15/24 10:00 08/15/24 10:03
MDM/Problems Addressed
Differential Diagnosis Includes:
UTI sepsis pneumonia
MDM/Problems Addressed:
Fever cloudy
Chronic conditions affecting care: Neurological disorder
Acute Exacerbation and/or Progression of Chronic Illness: Neurological disorder
*Radiology
Radiology exam reviewed: preliminary read by ED provider
*Pulse Oximetry
Patient hypoxic: no
*Ct Scan Technician Interpretation
Rate: normal
Interpretation: normal
Heart Rate: 78
Rhythm: sinus
*Critical Care Note
Total Time (30-74mins, 75-104mins- exclusive of procedures): Not Applicable
Update Note
Update Note:
Update labs noted, urine noted culture pending prior cultures noted
ED Attending Note
-
Portions of this chart may have been created with voice recognition software.� Occasional wrong word or��sound alike� substitutions may have occurred due to the inherent limitations of voice recognition software.
Discharge Plan
Departure
Patient Disposition: Admit
Date of Disposition: 08/15/24
Time of Disposition: 10:55
Admit to: Med/Surg
Presentation/result/management discussed w/ accepting MD/DO: Hospitalist
Patient with high blood pressure during this ER visit?: No
Condition: Fair
Covid-19: Negative COVID-19
Discharge Problem:
Urinary tract infection, Neurogenic bladder, Stage 3a chronic kidney disease (CKD), Metabolic encephalopathy
Prescriptions:
No Action
memantine 10 MG tablet
10 mg PO BID
Patient Comments:
03/24/2024, pt. crushes these tablets.
methenamine hippurate 1 gram Tablet
1 g PO BID
Patient Comments:
03/24/2024, pt. crushes these tablets.
mirtazapine 7.5 mg Tablet
7.5 mg PO HS
cranberry 500 mg Capsule
1,000 mg PO NOON
Patient Comments:
03/24/2024, gummies.
quetiapine [Seroquel] 25 mg Tablet
25 mg PO QPM
acetaminophen 325 mg Tablet
650 mg PO Q4HPRN PRN (Reason: Mild Pain / Temp > 101) Qty: 100 0RF
polyethylene glycol 3350 [HealthyLax] 17 gram Powder In Packet
17 g PO DAILY Qty: 30 0RF
docusate sodium 100 mg Capsule
100 mg PO BID Qty: 60 0RF
Lactobac/Bifidobac [Visbiome]
2 cap PO DAILY Qty: 100 0RF
ibuprofen [Motrin IB] 200 mg tablet
200 mg PO Q6H PRN (Reason: fever or pain) Qty: 30 0RF
ciprofloxacin HCl [Cipro] 250 mg tablet
750 mg PO BID 10 Days Qty: 60 0RF
Referrals:
Francisco Ibanez MD [Family Provider] -
Interventions
Interventions:
*Risk Screen - Suicide Last Done: 08/15/24 08:24
*General Assessment Last Done: 08/15/24 08:21
*Neglect/Abuse Screening Last Done: 08/15/24 08:24
*ED COVID-19 Vaccine History Last Done: 08/15/24 08:20
ED- Neurological Assessment Last Done: 08/15/24 08:24
ED-Skin Assessment Last Done: 08/15/24 08:24
Discharge Date and Time
Print Language: [place] CITIZ[place]
[2024-08-15 08:38] LABS: % Basophils 0.3 % (0-2); % Eosinophils 1.5 % (0-6); % Immature Granulocytes 0.4 % (0-0.5); % Lymphocytes 8.1 % (20.5-51.1); % Monocytes 5.6 % (1.7-9.3); % Neutrophils 84.1 % (42.2-75.2); Absolute Eosinophils 0.2 10^3/uL (0-0.7); Absolute Immature Granulocytes 0.1 10^3/uL (0-0.05); Absolute Monocytes 0.7 10^3/uL (0.1-0.6); Absolute Neutrophils 10.2 10^3/uL (1.4-6.5); Hemoglobin 12.9 g/dL (13.0-18.0); Mean Corp Hgb Conc. 34.9 g/dL (33.0-37.0); Mean Corpuscular Volume 88.9 fL (80.0-94.0); Mean Platelet Volume 9.9 fL (7.4-10.4); Nucleated Red Blood Cells % 0 % (-); Platelet Count 216 10^3/uL (130-400); Red Blood Cell Count 4.16 10^6/uL (4.70-6.10); Red Cell Dist. Width 13.1 % (11.5-14.5); White Blood Cell Count 12.1 10^3/uL (4.8-10.8)
[2024-08-15] MEDS: NSS 1000 IV ×2 (08:46→17:12)
[2024-08-15] MEDS: TYLENOL SUSPENSION 650 MG PO (09:04)
[2024-08-15 09:05] LABS: ALT (SGPT) 18 U/L (0-50); AST (SGOT) 18 U/L (17-59); Albumin 3.1 g/dl (3.5-5.0); Alkaline Phosphatase 67 U/L (38-126); Blood Urea Nitrogen 25 mg/dl (9-20); Calcium 8.1 mg/dl (8.4-10.2); Carbon Dioxide 22 mmol/L (22-30); Chloride 108 mmol/L (98-107); Glucose 112 mg/dl (70-99); Potassium 4.2 mmol/L (3.5-5.1); Sodium 139 mmol/L (135-145); Total Bilirubin 0.7 mg/dl (0.2-1.3); Total Protein 5.7 g/dl (6.3-8.2); eGFR > 60.00
[2024-08-15 09:44] LABS: COVID-19 Antigen Negative (Negative)
[2024-08-15 10:03] LABS: Urine Albumin 2+ (Neg - Trace); Urine Bilirubin Negative (Negative); Urine Character Very Cloudy (Clear); Urine Color Yellow; Urine Glucose Negative (Negative); Urine Ketone Negative (Negative); Urine Leukocyte 2+ (Negative); Urine Nitrite Negative (Negative); Urine Occult Blood 3+ (Negative); Urine Specific Gravity 1.025 (<1.030); Urine Urobilinogen Negative (Neg - 1+)
[2024-08-15 10:28] LABS: Urine Amorphous Seen; Urine Bacteria Many (Negative); Urine Red Blood Cell 21-25 /HPF (0-2); Urine White Cell >100 /HPF (0-5)
[2024-08-15] MEDS: MERREM 500 MG IV ×2 (10:59→18:27)
--- NOTE | 2024-08-15 12:27 | HPS.HSE ---
Addendum entered and electronically signed by RANDEE Dickinson 08/15/24 17:55:
consulted cardiology for Sinus Tachy with bundle branch block. electrolytes added to the lab.
Original Note:
Family Physician
-
Family Physician: Francisco Ibanez
Chief Complaint
-
fever , cloudy urine
History of Present Illness
74M HX Dementia, partially dysphasic , HX CKD3, recurrent UTI, Neurogenic bladder, chr indwelling FC, posterior cortical atrophy and chronic left side weakness presents to ED for evaluation of fever and cloudy urine. Last changed F cath 3 weks
ago. History obtained primarily from his at the bedside. Patient has been hospitalized multiple times in the past few months for urinary tract infections.
ROS:
Nausea and vomiting
Medical History
Past Medical History
Past Medical History: Reports Other
Additional Past Medical History:
Posterior Cortical Atrophy with Chronic Left Sided Weakness / Numbness and Intermittent Agitation / Cognitive Impairment
Neurogenic Bladder with Recurrent UTI (Pseudomonas)
BPH
CKD III
Anxiety / Depression
Past Surgical History: Reports Other
Additional Past Surgical History:
TURP
Social History
Tobacco: Non-smoker
Alcohol: None
Drug: None
Personal:
Living: With Family
Family History
Family History: Not pertinent
Allergies / Home Medications
Allergies reflects when Allergies were last updated in [facility].
Home Medications with original date entered in [facility]
Allergy/Medication List:
Allergies
Allergy/AdvReac Type Severity Reaction Status Date / Time
diazepam Allergy BENZODIAZEP Verified 03/24/24 22:11
DEB
tamsulosin [From Flomax] Allergy Nightmares Verified 02/14/24 18:24
Home Medications
memantine 10 mg tablet 10 mg PO BID Neurological Condition 09/09/20
methenamine hippurate 1 gram tablet 1 g PO BID Urinary Issue 02/14/24
mirtazapine 7.5 mg tablet 7.5 mg PO Mental Health 02/14/24
Probiotic Gummy 1 gummy PO DAILY Supplement 03/24/24
cranberry 500 mg capsule 1,000 mg PO NOON Supplement 03/24/24
quetiapine 25 mg tablet (Seroquel) 25 mg PO QPM 03/27/24
Review of Systems
-
Constitutional: Reports No Symptoms
EENT: Reports No Symptoms
Respiratory: Reports No Symptoms
Cardiac: Reports No Symptoms
Abdomen/GI: Reports No Symptoms
: Reports See HPI and Chanel (cloudy urine )
Musculoskeletal: Reports No Symptoms
Skin: Reports No Symptoms
Neurological: Reports No Symptoms
Endocrine: Reports No Symptoms
Hematologic/Lymphatic: Reports No Symptoms
Psych: Reports No Symptoms
Physical Exam
Vital Signs
Vital Signs
Temp Pulse Resp BP Pulse Ox
98.8 F 67 16 102/60 94
08/15/24 12:00 08/15/24 11:10 08/15/24 12:00 08/15/24 11:10 08/15/24 12:00
Physical Exam
General: Other (Ill-appearing 74y M lethargic and poorly communicative at present.)
HEENT: Moist mucous membranes and PERRLA
Respiratory: Other (Decreased at bases - otherwise clear.)
Cardiac: S1/S2, Regular Rhythm and Murmur (II/ FELIPA)
GI: Soft, Non Distended, Normal Bowel Sounds and Other (Pos RLQ tenderness without rebound / guarding.)
Genito-urinary: Other (Chanel in place draining elizabeth urine with sediment. No gross blood.)
Musculoskeletal: No Clubbing, No Cyanosis and No Edema
Neuro: Other (Sleeping. Wakes to voice and will follow commands. Answers simple questions appropriately, but rambles / mumbles with open-ended questioning.)
Laboratory Results
-
08/15/24 08:28
08/15/24 08:28
Laboratory Results
Lactic Acid 1.0 mmol/L (0.7-2.0) 08/15/24 08:28
Total Bilirubin 0.7 mg/dl (0.2-1.3) 08/15/24 08:28
AST 18 U/L (17-59) 08/15/24 08:28
ALT 18 U/L (0-50) 08/15/24 08:28
Alkaline Phosphatase 67 U/L (38-126) 08/15/24 08:28
Data Reviewed
-
Lab Data: Labs Reviewed by me
Old Records: Reviewed
Impression/Plan
-
Selected Entries
08/15/24
08:18 08/15/24
10:00 08/15/24
11:10
Temp 100.5 F H
Blood pressure 105/42 102/60
Laboratory Tests
08/15/24 08/15/24 08/15/24
08:28 08:37 09:22
WBC 12.1 H
Hgb 12.9 L
Chloride 108 H
BUN 25 H
Creatinine 1.2
eGFR > 60.00
Lactic Acid 1.0
Albumin 3.1 L
Urine Clarity Very cloudy
Urine Nitrite (Reflex) Negative
Leukocyte Esterase Rfl 2+ A
Urine RBC 21-25 A
Urine WBC (Reflex) >100 A
Urine Bacteria (Reflex) Many A
SARS-CoV-2 Antigen Negative
CXR: NAD
NEG Covid
Last hospitalist admission:
DATE OF ADMISSION: 05/04/2024 - DATE OF DISCHARGE: 05/07/2024
DISCHARGE DIAGNOSES:
1. Sepsis.
2. UTI (right-sided epididymoorchitis).
ASSESSMENT & PLAN
CAUTI
Sepsis secondary to the above
At risk for TME secondary to the above
HX Pseudomonas UTI sen to Meropenem
Neurogenic Bladder
-08/15/24 - Changed F cath at ER upon admission - draining clear light yellow urine
- Patient presents with fever, leukocytosis, with evidence for UTI.
- agree with meropenem and follow-up culture data.
- Supportive care including IVFs, antipyretics, etc.
- ID consult
HX Posterior cortical atrophy/dementia
HX behavioral disturbance.
- monitor mentation
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
Chronic tremor/chronic left-sided weakness
Renal function is near known baseline.
Current eGFR > 60 and prior eGFR > 60
Prior documentation of CKD3
- trend Cr and GFR
- Stable.
- IVF for sepsis as noted above.
DVT Prophylaxis: SCDs
Code Status: DNR per at bed side
IP TLM
[2024-08-15] MEDS: SEROQUEL 25 MG PO (15:19)
--- NOTE | 2024-08-15 16:24 | CON.ID ---
Consultation
-
Date/Time Consultation Requested: 08/15/2024 1600
Date/Time Consultation Performed: 08/15/2024 1630
Requesting Provider: Dr. Ruben Light
Performing Provider: Dr. Sirisha Lloyd
Reason for Consultation: CAUTI
Chief Complaint / Past History
Chief Complaint
Fever and lethargy
History of Present Illness
74-year-old male with hx of posterior cortical atrophy with left-sided weakness, sensory deficit, neurogenic bladder chronic boss placed 04/22/2024, changed 3 weeks ago, recurrent Pseudomonas UTI who presented to the ER today with fever. History
obtained from his at bedside. Fever started yesterday 100.7. She gave him Tylenol. This am fever recurred. Patient also lethargic. Tremor is worse as previous when ill. In ER temperature 100.5. White count of 12. Boss changed in ED today.
Currently on meropenem.
Past History
Additional Past Medical History:
Reactive airway disease
BPH status post TURP
Neurogenic bladder� chronic boss since 04/22/24
CKD3
Posterior cortical atrophy with left-sided weakness, sensory deficit, visual deterioration
Fatty liver
Sacral wound
IBS
Tremors
hx Right epididymitis/orchitis with Pseudomonas (04/2024)
Allergy History:
diazepam Allergy (Verified 03/24/24 22:11)
BENZODIAZEPINES
tamsulosin [From Flomax] Allergy (Verified 02/14/24 18:24)
Nightmares
cefepime Adverse Reaction (Verified 08/15/24 16:16)
CHANGE IN MENTAL STATUS
piperacillin [From Zosyn] Adverse Reaction (Verified 08/15/24 16:16)
SEVERE DIARRHEA
tazobactam [From Zosyn] Adverse Reaction (Verified 08/15/24 16:16)
SEVERE DIARRHEA
Medications Reviewed: Yes
Current Antibiotics:
Meropenem d1
Social History
Tobacco: Non-Smoker
Alcohol: None
Drug: None
Personal:
Living: With Family
Family History
Family History: Not Pertinent
Review of Systems
Review of Systems
General: Fever, Chills and Change in Appetite
HEENT: Negative Sinus Problems
Cardiovascular: Negative Chest Pain
Respiratory: Negative Dyspnea or Cough
Gasteroenterology: Negative Nausea, Vomiting or Diarrhea
Genital / Urological: Negative Flank Pain
Endocrine: Weakness
Neurological: Negative Dizziness
All systems: All other systems were reviewed and were negative
Vital Signs
Temp Pulse Resp BP Pulse Ox
98.8 F 86 23 151/137 94
08/15/24 15:37 08/15/24 15:15 08/15/24 15:15 08/15/24 15:00 08/15/24 12:00
Selected Entries
08/15/24
08:18
Temp 100.5 F H
Physical Exam
Physical Exam
Constitutional: Acutely Ill
Eyes: No Conjunctival Hemorrhage and Sclera Anicteric
Cardiovascular: S1/S2 and Other (Tachycardic)
Pulmonary: Clear
Gastrointestinal: Soft, Non Tender, Non Distended and Normal Bowel Sounds
Genito-Urinary: Boss; Negative CVA Tenderness
Extremities: Negative Edema
Neurological: Other (Lethargic. + signficant tremors)
Lab / Diagnostic Study Results
08/15/24 08:28
08/15/24 08:28
Abs Immat Gran (auto) 0.1 10^3/uL (0-0.05) H 08/15/24 08:28
Absolute Neuts (auto) 10.2 10^3/uL (1.4-6.5) H 08/15/24 08:28
Absolute Lymphs (auto) 1.0 10^3/uL (1.2-3.4) L 08/15/24 08:28
Absolute Monos (auto) 0.7 10^3/uL (0.1-0.6) H 08/15/24 08:28
Absolute Basos (auto) 0.0 10^3/uL (0-0.2) 08/15/24 08:28
Immature Gran % 0.4 % (0-0.5) 08/15/24 08:28
Neutrophils % 84.1 % (42.2-75.2) H 08/15/24 08:28
Lymphocytes % 8.1 % (20.5-51.1) L 08/15/24 08:
Monocytes % 5.6 % (1.7-9.3) 08/15/24 08:
Eosinophils % 1.5 % (0-6) 08/15/24 08:28
Basophils % 0.3 % (0-2) 08/15/24 08:28
Lactic Acid 1.0 mmol/L (0.7-2.0) 08/15/24 08:28
Ur Squamous Epith Cells 6-10 /LPF (Few) 08/15/24 08:37
Microbiology Results
Micro:
08/15/24 08:37 Urine Culture - Pending
Urine
Assessment / Plan
# Suspect CAUTI
# Recurrent Pseudomonas UTI
# Fever
# Leukocytosis
# Zosyn, cefepime intolerance
- Boss changed in ED 08/15
- Check blood cx. May be difficult to obtain due to limb tremors
- Follow Ucx
- Meropenem 500mg IV q6
-Trend temps/wbc
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
Reactive airway disease
BPH status post TURP
Neurogenic bladder� chronic boss since 04/22/24
CKD3
Posterior cortical atrophy with left-sided weakness, sensory deficit, visual deterioration
Fatty liver
Sacral wound
IBS
Tremors
hx Right epididymitis/orchitis with Pseudomonas (04/2024)
[2024-08-15] MEDS: TYLENOL 650 MG PO (17:06)
[2024-08-15] MEDS: STERILE WATER FOR INJECTION 10 ML IV (18:27)
[2024-08-15 18:28] LABS: Magnesium 1.8 mg/dl (1.6-2.3)
--- NOTE | 2024-08-15 19:02 | CON.CAR ---
Consultation
Consultation Request
Date/Time Consultation Requested: 08/15/2024 6 PM
Date/Time Consultation Performed: 08/15/2024 7 PM
Requesting Provider: Hospitalist
Performing Provider: Dr. Pop
Reason for Consultation: Tachycardia
Medical History
-
History of Present Illness:
74-year-old male with history of dementia, indwelling Chanel, history of urinary tract infection who presents with fever. Temperature 103 in the emergency department. Patient is unable to provide additional history. History obtained from family
and from records. Patient's had history with recurrent urinary tract infection with last infection being back in May during that month decision was made to place an indwelling catheter and reportedly he had not had recurrent infection since that
time. He had a fever last night and then today continued fever and has shaking chills versus an increase in his baseline tremor. On arrival he was noted to have wide-complex tachycardia at 144 bpm. Challenging ECG due to patient's shaking and
tremor initial ECG suggestive of sinus tachycardia with left bundle branch block patient's heart rate has come down into the 120s and is now narrow complex and suggestive of sinus tachycardia versus atrial tachycardia.
Patient with no prior history of cardiac disease
Including no history of coronary artery disease, myocardial infarction, coronary stents, CHF or atrial fibrillation.
ECG #1 wide-complex tachycardia suspicious for sinus tachycardia with left bundle branch block
ECG #2 narrow complex tachycardia sinus tachycardia versus atrial tachycardia with nonspecific ST changes. Note challenging to obtain ECG and clean baseline due to patient's shaking
Past Medical History
Past Medical History: Other (Posterior cortical atrophy, chronic left-sided weakness cognitive impairment neurogenic bladder recurrent UTIs CKD)
Social History
Tobacco: Non-Smoker
Living: With Family
Family History
Family History: Other (Negative for CAD)
Allergies / Home Medications
Allergy/AdvReac Type Severity Reaction Status Date / Time
cefepime Allergy CHANGE IN Verified 08/15/24 17:17
MENTAL
STATUS
diazepam Allergy BENZODIAZEP Verified 03/24/24 22:11
DEB
piperacillin [From Zosyn] Allergy SEVERE Verified 08/15/24 17:17
DIARRHEA
tamsulosin [From Flomax] Allergy Nightmares Verified 02/14/24 18:24
tazobactam [From Zosyn] Allergy SEVERE Verified 08/15/24 17:17
DIARRHEA
�Medication �Instructions �Recorded �Confirmed �Type
memantine 10 mg tablet 10 mg PO BID Neurological Condition 09/09/20 08/15/24 History
methenamine hippurate 1 gram tablet 1 g PO BID Urinary Issue 02/14/24 08/15/24 History
cranberry 500 mg capsule 1,500 mg PO NOON Supplement 03/24/24 08/15/24 History
quetiapine 25 mg tablet (Seroquel) 25 mg PO TIDPRN PRN anxiety 03/27/24 08/15/24 History
Lactobac no.2-Bifidobac no.1-S. 1 cap PO DAILY 08/15/24 08/15/24 History
thermo 112.5 billion cell capsule
(Visbiome)
ammonium lactate 12 % lotion 1 applic topical DAILYPRN PRN 08/15/24 08/15/24 History
dryness
ascorbic acid (vitamin C) 500 mg 1 g PO DAILY 08/15/24 08/15/24 History
chewable tablet (Vitamin C)
d-mannose 500 mg capsule 500 mg PO DAILY 08/15/24 08/15/24 History
mirtazapine 15 mg tablet 15 mg PO HS 08/15/24 08/15/24 History
nystatin 100,000 unit/gram topical 1 applic topical DAILYPRN PRN 08/15/24 08/15/24 History
cream groin area redness
psyllium 1 packet PO DAILYPRN PRN 08/15/24 08/15/24 History
constipation
Review of Systems
-
Unable to obtain full review of systems at this time due to: Dementia
Physical Exam
Vital Signs
Temp Pulse Resp BP Pulse Ox
103.1 F H 86 23 151/137 94
08/15/24 18:33 08/15/24 15:15 08/15/24 15:15 08/15/24 15:00 08/15/24 12:00
Lab Results
08/15/24 08:28
08/15/24 08:28
Physical Exam
General: Well Developed, Well Nourished and Other
HEENT: Other (Tries to eat keep eyes closed during exam external ear and oral exam unremarkable neck is without detectable JVD or bruit)
Respiratory: Other (Decreased breath sounds at bases which may be related to effort no wheezes rales or rhonchi)
Cardiac: Regular Rhythm and Other (Tachycardic with low pitched systolic murmur)
GI: Soft and Other (Mildly distended does not seem tender no masses detected)
Musculoskeletal: No Clubbing, No Cyanosis and No Edema
Skin: Warm, Dry and Rash (No rash)
Neuro: Awake and Other (Does not follow commands)
Impression / Plan
-
Tachycardia. Patient noted to have wide-complex tachycardia suspect rate related left bundle. Patient may have sinus tachycardia with rate related left bundle or atrial tachycardia with aberrant conduction.
Patient now with narrow complex rhythm. Expect patient to have some degree of tachycardia with fever and infection.
-Continue treatment of infection and antibiotics as directed by primary team
-IV fluids
-Monitor on telemetry
-If patient's heart rate is persistently elevated despite treatment above and rhythm behaves more like atrial tachycardia then we will consider additional rate control strategies.
.
Fever. Suspected urinary source. COVID-negative. Patient with history of UTIs, Pseudomonas and indwelling catheter.
-Continued management as directed by primary team
-ID consulted
-Antibiotics
-Blood cultures and urine culture
.
Murmur. Low pitched systolic murmur.
-Echocardiogram this admission
.
Neuro/posterior cortical atrophy/cognitive impairment.
.
--- NOTE | 2024-08-15 19:33 | PTCARENOTE ---
Pt received as an ED hold. EKG alarming Vtach on tele, pt noted to be in a wide complex tachycardia, EKG obtained, MD made aware. Fever of 102.5, tylenol PO given. Later, pt settled more and rhythm appeared to be a narrow complex tachycardia. EKG
obtained. Cards at bedside. Report handed off to marine transport professionals RN.
--- NOTE | 2024-08-15 19:45 | PTCARENOTE ---
Provider aware fever 103.3 oral , unsure if patient can take ibuprofen since he has a neuro condition. Ice applied to neck, groin and arms.
[2024-08-15] MEDS: MOTRIN 600 MG PO (20:17)
[2024-08-15] MEDS: NAMENDA 10 MG PO (20:18)
[2024-08-15] MEDS: REMERON 15 MG PO (22:12)
[2024-08-16] VITALS (12 sets, daily range): BP systolic 98–169; BP diastolic 48–107; BMI 27.8
[2024-08-16] MEDS: STERILE WATER FOR INJECTION 10 ML IV ×5 (00:11→23:59)
[2024-08-16] MEDS: MERREM 500 MG IV ×5 (00:11→23:59)
[2024-08-16] MEDS: NSS 1000 IV (05:29)
[2024-08-16 05:46] LABS: Hematocrit 34.1 % (39.0-52.0); Mean Corp Hgb Conc. 35.2 g/dL (33.0-37.0); Mean Corpuscular Hgb 30.5 pg (27.0-31.0); Mean Corpuscular Volume 86.8 fL (80.0-94.0); Mean Platelet Volume 9.8 fL (7.4-10.4); Platelet Count 191 10^3/uL (130-400); Red Blood Cell Count 3.93 10^6/uL (4.70-6.10); Red Cell Dist. Width 13.1 % (11.5-14.5); White Blood Cell Count 9.7 10^3/uL (4.8-10.8)
[2024-08-16 06:07] LABS: ALT (SGPT) 17 U/L (0-50); AST (SGOT) 25 U/L (17-59); Albumin 2.8 g/dl (3.5-5.0); Alkaline Phosphatase 50 U/L (38-126); Blood Urea Nitrogen 26 mg/dl (9-20); Calcium 8.1 mg/dl (8.4-10.2); Carbon Dioxide 17 mmol/L (22-30); Chloride 109 mmol/L (98-107); Estimated Creatinine Clearance 66 ml/min; Glucose 119 mg/dl (70-99); Potassium 4.1 mmol/L (3.5-5.1); Sodium 136 mmol/L (135-145); Total Bilirubin 0.6 mg/dl (0.2-1.3); Total Protein 5.5 g/dl (6.3-8.2); eGFR > 60.00
[2024-08-16] MEDS: VISBIOME 1 CAP PO (08:04)
[2024-08-16] MEDS: NAMENDA 10 MG PO ×2 (08:04→20:25)
[2024-08-16] MEDS: TYLENOL 650 MG PO ×4 (09:44→23:58)
--- NOTE | 2024-08-16 12:26 | W.PN.CD ---
Today's Communication / Plan
-
Clinical improvement. Patient is much more awake and interactive and appears to be feeling better.
Sinus rhythm with narrow QRS. No arrhythmias overnight. No concerning arrhythmias.
Wide-complex rhythm on presentation likely rate related bundle branch block.
Plan for echocardiogram 08/18/2024
Continued antibiotics as directed by primary team and ID monitor cultures
.
Call if additional assistance required
Impression / Plan
-
Tachycardia. Patient initially noted to have wide-complex tachycardia felt to be rate related left bundle branch block. Likely sinus with rate related left bundle. As rate slowed patient developed sinus tachycardia with narrow complex and now is
in sinus rhythm with heart rate in the 70s. No other arrhythmias overnight.
-Continued management of infection.
-Plan for echocardiogram on Sunday as previously recommended
.
Fever. Suspected urinary source. COVID-negative. Patient with history of UTIs, Pseudomonas and indwelling catheter.
-Overall patient appears to be better.
-Continued management as directed by primary team
-ID consulted
-Antibiotics
-Blood cultures and urine culture
.
Murmur. Low pitched systolic m
Echocardiogram 08/18/2024
.
Neuro/posterior cortical atrophy/cognitive impairment.
-Improved mental status. Responding to questions and following commands. Appears comfortable
.
Physical Exam
Vital Signs/Labs
Vital Signs
Temp Pulse Resp BP Pulse Ox
98.9 F 72 19 127/63 97
08/16/24 12:00 08/16/24 12:00 08/16/24 12:00 08/16/24 12:02 08/16/24 12:00
08/15/24 08/16/24 08/17/24
06:59 06:59 06:59
Actual Weight 105 kg
08/16/24 05:36
08/16/24 05:36
Magnesium 1.8 mg/dl (1.6-2.3) 08/15/24 08:28
Physical Exam
Constitutional: No acute distress
Cardiovascular: Rhythm & rate is regular and Other (Systolic murmur present)
Respiratory: Wheeze Absent and Rhonchi Absent
GI: Soft
Neuro/Psych: Alert and Other (Much more awake and interactive than yesterday)
Data Reviewed
-
Date of Service: August 16, 2024
Medical Decision Making: Reviewed Test Results
X-Ray/CT/US/MRI/NUC/PET: Report Reviewed by me
Medical Tests (PFT, Pathology etc): Report Reviewed by me
Labs: Labs Reviewed by me
--- NOTE | 2024-08-16 13:51 | PTCARENOTE ---
Patient arrived to [facility] from ER on 5L NC with SpO2 of 94%. RN and 2 PCT provided hygiene care as patient had bowel movement. Skin checked for DRIVE TESTER wounds by RN. RN asked family member to see if his caregiver ( or daughter) can come in so
admission can be completed. Pt has Alzheimers and is aphasic at baseline.
[2024-08-16] MEDS: SEROQUEL 25 MG PO ×3 (14:29→23:59)
--- NOTE | 2024-08-16 14:29 | W.PN.HOSP.TC ---
Today's Communication/Plan
-
continue IVF, IV Abx, tremor control, anxiety control
wean O2
Assessment / Plan
Assessment / Plan
Assessment:
Acute hypoxic respiratory insufficiency on 2L
- wean O2
- CXR clear
Sepsis POA (fever, tachycardia, leukocytosis)
CAUTI present on arrival
Hx of neurogenic bladder with Chronic Chanel and BPH s/p TURP
- suspect pseudomonas based off prior cultures
- continue Meropenem per ID pending cultures. Noted Zosyn and Cefepime intolerances previously.
- chronic Chanel was exchanged in ER
Tachycardia initially wider complex in setting of RBBB
- resolved to narrow complex sinus tach in setting of sepsis
- appreciate cards input
- Echo planned 08/18 for exam finding of low pitch murmur
Posterior cortical atrophy with left-sided weakness, sensory deficit, visual deterioration
- prn Seroquel TID; additional 25mg dose is acceptable to control Anxiety
CKD stage 3b
Reactive airway disease
Chronic tremor
Chronic left-sided weakness
DVT ppx: SCDs
Code: DNR
Anticipated Discharge: > 48 hours
Subjective/Interval History
-
Date of Service: August 16, 2024
feeling better today overall
ongoing temps, but generally lower than yesterday
Objective Data
-
Labs:
Laboratory Results
08/16/24
05:36
WBC 9.7
Hgb 12.0 L
Hct 34.1 L
Plt Count 191
Sodium 136
Potassium 4.1
Chloride 109 H
Carbon Dioxide 17 L
BUN 26 H
Creatinine 1.2
Glucose 119 H
Calcium 8.1 L
Total Bilirubin 0.6
AST 25
ALT 17
Alkaline Phosphatase 50
Vital Signs:
Vital Signs
Temp Pulse Resp BP Pulse Ox
100.9 F H 68 18 98/67 94
08/16/24 13:43 08/16/24 13:43 08/16/24 13:43 08/16/24 13:43 08/16/24 13:43
I&O
08/15/24 08/16/24 08/17/24
06:59 06:59 06:59
Intake Total 960 / 960
Output Total 1550 / 1550 480 / 480
Balance -590 / -590 -480 / -480
Physical Exam
-
General: Appears in Distress (due to tremors, fevers)
HEENT: Normocephalic and Atraumatic
Respiratory: Clear to Auscultation; Negative Wheezes
Cardiac: Regular Rhythm, S1/S2 and Tachycardic
GI: Soft
Neuro: AO x 3
Psych: Calm
Data Reviewed
-
Total Time Spent with Patient (in minutes): 44
Labs: Labs Reviewed by me
--- NOTE | 2024-08-16 16:16 | W.PN.ID1 ---
Date of Service
Date of Service: August 16, 2024
Today's Communication
Continue meropenem.
Assessment / Plan
# Suspect CAUTI
# Recurrent Pseudomonas UTI
# Fever persists
# Leukocytosis - resolved
# Zosyn, cefepime intolerance
- Renal US: no hydronephrosis
- Boss changed in ED 08/15
- blood cx pending
-Ucx pending
- Continue Meropenem 500mg IV q6 (d20
-Trend temps/wbc
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
Reactive airway disease
BPH status post TURP
Neurogenic bladder� chronic boss since 04/22/24
CKD3
Posterior cortical atrophy with left-sided weakness, sensory deficit, visual deterioration
Fatty liver
Sacral wound
IBS
Tremors
hx Right epididymitis/orchitis with Pseudomonas (04/2024)
Chief Complaint
-: Fever and UTI
Subjective / Review of Systems
Remains febrile. Lethargic.
Vital Signs / Physical Exam
Vital Signs
Vital Signs
Temp Pulse Resp BP Pulse Ox
103.0 F H 136 16 169/96 94
08/16/24 15:15 08/16/24 15:15 08/16/24 15:15 08/16/24 15:15 08/16/24 15:29
Physical Exam
Constitutional: Acutely Ill
Eyes: No Conjunctival Hemorrhage and Sclera Anicteric
Oropharyngeal: Erythema
Cardiovascular: S1/S2 and Other (tachycardic)
Pulmonary: Clear
Gastrointestinal: Soft, Non Tender, Non Distended and Normal Bowel Sounds
Genito-Urinary: Boss and CVA Tenderness
Extremities: Negative Edema
Objective Data
Lab Data
Lab Results
08/16/24 05:36
08/16/24 05:36
Estimated Creat Clear 66 ml/min 08/16/24 05:36
Lactic Acid Cancelled 08/16/24 04:01
Total Bilirubin 0.6 mg/dl (0.2-1.3) 08/16/24 05:36
AST 25 U/L (17-59) 08/16/24 05:36
ALT 17 U/L (0-50) 08/16/24 05:36
Alkaline Phosphatase 50 U/L (38-126) 08/16/24 05:36
Most recent labs reviewed.
Micro Results:
08/15/24 08:37 Urine Culture - Preliminary
Urine
08/15/24 19:24 Blood Culture - Pending
Blood/Venous
[2024-08-16] MEDS: SODIUM BICARBONATE 1150 MEQ IV (17:09)
--- NOTE | 2024-08-16 17:41 | PTCARENOTE ---
Notified MD Merritt about pt's consistent tachycardia with rates in 120-130's. This was issue in ED and cards was consulted. EKG was done in ED and plan is for echo Sunday. RN gave Tylenol for pain and fever of 103. RN also gave seroquel per order,
patient was anxious/restless/fidgeting and felt that he was beginning to 'sun down'. IVF with sodium bicarb initiated per order. Pt now 94% on 2L NC. Patient and pt endorse feeling better post Tylenol and Seroquel administration.
[2024-08-16] MEDS: REMERON 15 MG PO (20:24)
[2024-08-17 03:30] VITALS: BP 135/68
[2024-08-17] MEDS: MERREM 500 MG IV ×4 (04:59→23:23)
[2024-08-17] MEDS: STERILE WATER FOR INJECTION 10 ML IV ×4 (05:00→23:24)
[2024-08-17 06:13] LABS: Hematocrit 38.4 % (39.0-52.0); Hemoglobin 13.7 g/dL (13.0-18.0); Mean Corp Hgb Conc. 35.7 g/dL (33.0-37.0); Mean Corpuscular Volume 89.7 fL (80.0-94.0); Mean Platelet Volume 10.3 fL (7.4-10.4); Platelet Count 174 10^3/uL (130-400); Red Blood Cell Count 4.28 10^6/uL (4.70-6.10); White Blood Cell Count 9.9 10^3/uL (4.8-10.8)
[2024-08-17 06:37] LABS: Blood Urea Nitrogen 20 mg/dl (9-20); Calcium 8.1 mg/dl (8.4-10.2); Carbon Dioxide 25 mmol/L (22-30); Chloride 102 mmol/L (98-107); Estimated Creatinine Clearance 66 ml/min; Glucose 108 mg/dl (70-99); Potassium 4.1 mmol/L (3.5-5.1); Sodium 139 mmol/L (135-145); eGFR > 60.00
[2024-08-17 07:24] VITALS: BP 153/74
[2024-08-17] MEDS: TYLENOL 650 MG PO ×2 (09:31→19:52)
[2024-08-17] MEDS: NAMENDA 10 MG PO ×2 (09:32→19:53)
--- NOTE | 2024-08-17 09:32 | W.PN.HOSP.TC ---
Today's Communication/Plan
-
CT a/P to evaluate tract further
fever control
continue Abx pending culture
Assessment / Plan
Assessment / Plan
Assessment:
Acute hypoxic respiratory insufficiency on 2L
- wean O2
- CXR clear
Sepsis POA (fever, tachycardia, leukocytosis)
CAUTI present on arrival
Hx of neurogenic bladder with Chronic Chanel and BPH s/p TURP
- suspect pseudomonas based off prior cultures
- continue Meropenem per ID pending cultures. Noted Zosyn and Cefepime intolerances previously.
- chronic Chanel was exchanged in ER
- Renal US unremarkable, will obtain CT with ongoing fevers
- for fever control, prn Tylenol and cooling blanket prn
Tachycardia initially wider complex in setting of RBBB
- resolved to narrow complex sinus tach in setting of sepsis
- appreciate cards input
- Echo planned 08/18 for exam finding of low pitch murmur
Posterior cortical atrophy with left-sided weakness, sensory deficit, visual deterioration
- prn Seroquel TID; additional 25mg dose is acceptable to control Anxiety
CKD stage 3b
Reactive airway disease
Chronic tremor
Chronic left-sided weakness
DVT ppx: SCDs
Code: DNR
Anticipated Discharge: > 48 hours
Subjective/Interval History
-
Date of Service: August 17, 2024
febrile overnight, currently 101.5
tremors better controlled currently
no overnight events otherwise
Objective Data
-
Labs:
Laboratory Results
08/17/24
04:51
WBC 9.9
Hgb 13.7
Hct 38.4 L
Plt Count 174
Sodium 139
Potassium 4.1
Chloride 102
Carbon Dioxide 25
BUN 20
Creatinine 1.2
Glucose 108 H
Calcium 8.1 L
Vital Signs:
Vital Signs
Temp Pulse Resp BP Pulse Ox
101.5 F H 95 17 153/74 94
08/17/24 07:24 08/17/24 07:24 08/17/24 07:24 08/17/24 07:24 08/17/24 07:24
I&O
08/16/24 08/17/24 08/18/24
06:59 06:59 06:59
Intake Total 960 / 960 1490 / 1490
Output Total 1550 / 1550 2029 / 2029
Balance -590 / -590 -540 / -540
Physical Exam
-
General: No Apparent Distress and Appears Chronically Ill
HEENT: Normocephalic and Atraumatic
Respiratory: Negative Wheezes
Cardiac: Regular Rhythm
GI: Soft and Nontender
Genito-urinary: Chanel
Neuro: AO x 3
Psych: Calm
Data Reviewed
-
Total Time Spent with Patient (in minutes): 42
Labs: Labs Reviewed by me
[2024-08-17] MEDS: VISBIOME PO (09:33)
[2024-08-17 11:11] VITALS: BP 135/64
--- NOTE | 2024-08-17 13:46 | CM ---
spoke to dgtr outside room while patient was receiving personal care from staff.
Patient, , dgtr and private caregiver live in home that has ramp access and elevator.
Patient is walked with hand hold. Per dgtr her cannot use RW.
HE has transport chair, w/c at home. He has a 'shower arnoldo' chair that he is moved into bathroom for toileting and showers.
He gets private PT in home. HE has a [facility] RN at home. He also gets support from Palliative care once a month.
PCP Dr. Blanca Ibanez
Pharmacy: [facility]
PLAN home with KETURAH RN from [facility].
[2024-08-17] MEDS: AMPICILLIN 108 MG IV ×3 (14:05→23:24)
[2024-08-17] MEDS: REFRESH EYE DROPS (PF) 1 DROPS BOTH EYES (15:12)
[2024-08-17 15:19] VITALS: BP 127/59
--- NOTE | 2024-08-17 16:03 | W.PN.ID1 ---
Date of Service
Date of Service: August 17, 2024
Today's Communication
Add ampicillin to meropenem.
Assessment / Plan
# CAUTI
# hx Recurrent Pseudomonas UTI
# Fever persists
# Leukocytosis - resolved
# Zosyn, cefepime intolerance
- Renal US and CT a/p: no hydronephrosis
- Boss changed in ED 08/15
- blood cx neg
-Ucx: prelim Pseudomonas adn Enterococcus
- Continue Meropenem 500mg IV q6 (d3)
-Add IV ampicillin.
-Trend temps.
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
Reactive airway disease
BPH status post TURP
Neurogenic bladder� chronic boss since 04/22/24
CKD3
Posterior cortical atrophy with left-sided weakness, sensory deficit, visual deterioration
Fatty liver
Sacral wound
IBS
Tremors
hx Right epididymitis/orchitis with Pseudomonas (04/2024)
Chief Complaint
-: Fever and UTI
Subjective / Review of Systems
Pt calmer, more alert.
Vital Signs / Physical Exam
Vital Signs
Vital Signs
Temp Pulse Resp BP Pulse Ox
98.4 F 79 17 127/59 96
08/17/24 15:19 08/17/24 15:19 08/17/24 15:19 08/17/24 15:19 08/17/24 15:19
Physical Exam
Constitutional: Comfortable
Cardiovascular: Regular Rate and S1/S2
Pulmonary: Clear
Gastrointestinal: Soft, Non Tender and Non Distended
Genito-Urinary: Boss and Clear Urine
Neurological: Awake and Alert
Objective Data
Lab Data
Lab Results
08/17/24 04:51
08/17/24 04:51
Estimated Creat Clear 66 ml/min 08/17/24 04:51
Lactic Acid Cancelled 08/16/24 04:01
Total Bilirubin 0.6 mg/dl (0.2-1.3) 08/16/24 05:36
AST 25 U/L (17-59) 08/16/24 05:36
ALT 17 U/L (0-50) 08/16/24 05:36
Alkaline Phosphatase 50 U/L (38-126) 08/16/24 05:36
Most recent labs reviewed.
Micro Results:
08/15/24 08:37 Urine Culture - Preliminary
Urine Pseudomonas species
Enterococcus species
08/15/24 19:24 Blood Culture - Preliminary
Blood/Venous No Growth in 24 hours- Final report to follow
Care Review
Plan reviewed with: Physician (Dr. Gela Merritt)
[2024-08-17] MEDS: SEROQUEL 25 MG PO ×2 (18:10)
[2024-08-17 19:15] VITALS: BP 117/72
[2024-08-17] MEDS: REMERON 15 MG PO (19:53)
[2024-08-17 23:38] VITALS: BP 102/49
[2024-08-18] MEDS: SEROQUEL 25 MG PO (03:22)
[2024-08-18 03:31] VITALS: BP 101/64
[2024-08-18] MEDS: STERILE WATER FOR INJECTION 10 ML IV ×3 (05:11→17:34)
[2024-08-18] MEDS: MERREM 500 MG IV ×3 (05:12→17:35)
[2024-08-18] MEDS: AMPICILLIN 108 MG IV ×3 (05:13→17:34)
[2024-08-18 06:34] VITALS: BMI 27.3
[2024-08-18 07:36] VITALS: BP 154/83
[2024-08-18] MEDS: NAMENDA 10 MG PO ×2 (08:33→20:03)
[2024-08-18] MEDS: VISBIOME 1 CAP PO (08:33)
[2024-08-18 08:50] LABS: Mean Corp Hgb Conc. 36.1 g/dL (33.0-37.0); Mean Corpuscular Hgb 31.6 pg (27.0-31.0); Mean Corpuscular Volume 87.4 fL (80.0-94.0); Mean Platelet Volume 9.9 fL (7.4-10.4); Platelet Count 168 10^3/uL (130-400); Red Blood Cell Count 4.12 10^6/uL (4.70-6.10); Red Cell Dist. Width 12.9 % (11.5-14.5); White Blood Cell Count 9.1 10^3/uL (4.8-10.8)
[2024-08-18 10:06] LABS: Blood Urea Nitrogen 19 mg/dl (9-20); Calcium 7.8 mg/dl (8.4-10.2); Carbon Dioxide 24 mmol/L (22-30); Chloride 103 mmol/L (98-107); Estimated Creatinine Clearance 88 ml/min; Glucose 106 mg/dl (70-99); Potassium 3.4 mmol/L (3.5-5.1); Sodium 138 mmol/L (135-145); eGFR > 60.00
--- NOTE | 2024-08-18 10:51 | W.PN.HOSP.TC ---
Addendum entered and electronically signed by Fam Green DO 08/18/24 13:56:
Dementia with acute metabolic encephalopathy due to sepsis
Acute hypoxic respiratory failure
Original Note:
Today's Communication/Plan
-
Replete potassium
Echocardiogram
Assessment / Plan
Assessment / Plan
Gen-AAOx3, NAD
HEENT-NC, AT, anicteric, clear oral mm
Neck-supple
CV-reg, no M, +S1/S2
Lungs-clear B/L
Abd-soft, NT, ND
Ext-no edema
Musculoskeletal-no cyanosis, clubbing
Skin-warm and dry
Neuro-grossly non-focal
Psych-calm, cooperative
Acute hypoxic respiratory insufficiency on 2L
- wean O2
- CXR clear
Sepsis POA (fever, tachycardia, leukocytosis)
CAUTI present on arrival
Hx of neurogenic bladder with Chronic Chanel and BPH s/p TURP
- suspect pseudomonas based off prior cultures
- continue Meropenem per ID pending cultures. Noted Zosyn and Cefepime intolerances previously.
- chronic Chanel was exchanged in ER
- Renal US unremarkable, CT abdomen pelvis negative
- for fever control, prn Tylenol and cooling blanket prn
Hypokalemia -replete orally. Check magnesium.
Tachycardia initially wider complex in setting of RBBB
- resolved to narrow complex sinus tach in setting of sepsis
- appreciate cards input
- Echo planned 08/18 for exam finding of low pitch murmur
Posterior cortical atrophy with left-sided weakness, sensory deficit, visual deterioration
- prn Seroquel TID; additional 25mg dose is acceptable to control Anxiety
CKD stage 2
Reactive airway disease
Chronic tremor
Chronic left-sided weakness
DVT ppx: SCDs
Code: DNR
Anticipated Discharge: Within 24 hours
Subjective/Interval History
-
Date of Service: August 18, 2024
Patient seen and examined. No complaints.
Objective Data
-
Labs:
Laboratory Results
08/18/24 08/18/24 08/18/24
08:11 08:41 09:12
WBC Cancelled 9.1
Hgb Cancelled 13.0
Hct Cancelled 36.0 L
Plt Count Cancelled 168
Sodium Cancelled 138
Potassium Cancelled 3.4 L
Chloride Cancelled 103
Carbon Dioxide Cancelled 24
BUN Cancelled 19
Creatinine Cancelled 0.9
Glucose Cancelled 106 H
Calcium Cancelled 7.8 L
Vital Signs:
Vital Signs
Temp Pulse Resp BP Pulse Ox
100.2 F 81 18 154/83 97
08/18/24 07:36 08/18/24 07:36 08/18/24 07:36 08/18/24 07:36 08/18/24 07:36
I&O
08/17/24 08/18/24 08/19/24
06:59 06:59 06:59
Intake Total 1490 / 1490 1520 / 1520
Output Total 2029 / 2029 1400 / 1400
Balance -540 / -540 120 / 120
Review of Systems
-
History Source: Patient
All other systems: Reviewed and negative
[2024-08-18] MEDS: KCL 40 MEQ PO (12:28)
--- NOTE | 2024-08-18 12:44 | CM ---
Pt seen at bedside w/ CG.
Pt will resume VN via [facility]. Return referral already submitted in [facility]
Pt has [facility] and caregivers in the home for support
Will need ambulance transport at d/c. Anticipated d/c in 24 hours per hospitalist note
IMM reviewed, pt given copy. Copy placed into chart
[facility]

[facility]

Plan: Home w/ [facility]
--- NOTE | 2024-08-18 13:06 | WOUNDNOTE ---
WON RN NOTE: Patient admitted with UTI, see chart for PMH. Patient does not have PI on R foot or L 2nd toe, they appear to be abrasions and dry skin. Caregiver at bedside reports patient frequently crosses legs and rubs feet together in those areas,
foams changed. SCD's in use, skin checked and intact. Patient turned with assist of nurse Mike, sacrum blanchable red, MASD in gluteal fold vertical, barrier cream in use. Patient is on a Accumax bed, frequently does not stay onto turned side
reports nurse. Brought in air overlay to be added to bed when able. Pillow placed under calves, foams in use on intact heels. Updated nurse and care plan. Will sign off unless needed.
--- NOTE | 2024-08-18 13:23 | PN.CDI ---
CDI
- -
CDI:
Physician Documentation Request
Admit Date: 08/15/24 13:02
Dear Doctor Peter,
Clinical Indicators:
Patient admitted with sepsis due to CAUTI.
RR trend:
08/15/24
16:15 08/15/24
17:00 08/15/24
18:00
Resp Rate 25 28 32
08/15/24
20:00 08/15/24
21:00
Resp Rate 23 25
02 requirements:
08/15/24
19:27 08/16/24
12:00 08/16/24
13:43
Nasal Cannula flow liters per minute 6 4 5
08/16/24
14:55
Nasal Cannula flow liters per minute 5
08/18 PN, 'Acute hypoxic respiratory insufficiency on 2L'
Please clarify which of the following accurately represents the patient's respiratory status:
Acute hypoxic respiratory failure
Acute hypoxic respiratory insufficiency only
Other, please specify
Additional information for Respiratory Failure:
Recognized criteria for Respiratory Failure (Source: [facility] Sep 2013)
ABGs: (1 or more) Symptoms Please indicate type if known
1. p)2 <60 or RA SPO2 <91% on RA 1. Tachypnea, SOB, dyspnea Hypoxic
2. pCO2 50 and pH <7.35 2. Use of accessory muscles Hypercapnic
3. pO2 decrease of pCO2 increase by 3. Pallor or cyanosis Hypoxic and Hypercapnic
10 mmHg from baseline if known 4. Anxiety or restlessness Unable to determine
5. Unable to speak in full sentences
Supplemental O2 of > 40% (5LPM) Intubation is not required
Use of terms such as suspected, likely, concern for, or probable (associated with a specific diagnosis that is being evaluated, monitored, or treated as if it exists) are acceptable and can be coded in the inpatient setting, when documented at the
time of discharge.
Thank you,
Robina Valdovinos RN BSN
CDI Specialist
available via tiger text
Please use your independent medical judgment in providing your response.
--- NOTE | 2024-08-18 13:33 | PN.CDI ---
CDI
- -
CDI:
Physician Documentation Request
Admit Date: 08/15/24 13:02
Dear Doctor Peter,
Clinical Indicators:
Patient admitted with sepsis due to CAUTI.
08/15 H & P, 'lethargic and poorly communicative at present...Sepsis...At risk for TME secondary to the above...
dementia HX behavioral disturbance.- monitor mentation'
08/16 Cardiology PN, 'Patient is much more awake and interactive and appears to be feeling better.'
08/16 (17:41) RN note, 'RN also gave seroquel per order, patient was anxious/restless/fidgeting and felt that he was beginning to 'sun down'. '
Based on the above, could you clarify in the Progress Notes and Discharge Summary which, if any of the following, is the most likely etiology of the confusion/altered mental status.
Dementia with acute metabolic encephalopathy due to sepsis
Dementia with sundowning
Baseline Dementia only
Other, please specify
Use of terms such as suspected, likely, concern for, or probable (associated with a specific diagnosis that is being evaluated, monitored, or treated as if it exists) are acceptable and can be coded in the inpatient setting, when documented at the
time of discharge.
Thank you,
Robina Valdovinos RN BSN
CDI Specialist
available via tiger text
Please use your independent medical judgment in providing your response.
--- NOTE | 2024-08-18 15:05 | CARDSERVLU ---
Echocardiogram with [facility] completed after protocol screening completed. Allergies verified.
Patent IV site: __Rt FA__
IV site flushed with 0.9% NaCl pre and post administration.
Diluted bolus method utilized to enhance visualization of ventricular garcia.
Total volume given: _3.0_ mL
Patient tolerated all procedures well without complications.
--- NOTE | 2024-08-18 15:57 | W.PN.ID1 ---
Date of Service
Date of Service: August 18, 2024
Today's Communication
Continue IV ampicillin and meropenem.
Assessment / Plan
# CAUTI
# hx Recurrent Pseudomonas UTI
# Fever trending down
# Leukocytosis - resolved
# Zosyn, cefepime intolerance
- Renal US and CT a/p: no hydronephrosis
- Boss changed in ED 08/15
- blood cx neg
-Ucx: prelim Pseudomonas and Enterococcus
- Continue Meropenem 500mg IV q6 (d4)
-Add IV ampicillin (d2)
-Trend temps.
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
Reactive airway disease
BPH status post TURP
Neurogenic bladder� chronic boss since 04/22/24
CKD3
Posterior cortical atrophy with left-sided weakness, sensory deficit, visual deterioration
Fatty liver
Sacral wound
IBS
Tremors
hx Right epididymitis/orchitis with Pseudomonas (04/2024)
Chief Complaint
-: Fever and UTI
Subjective / Review of Systems
Feels well today.
Vital Signs / Physical Exam
Vital Signs
Vital Signs
Temp Pulse Resp BP Pulse Ox
100.2 F 81 18 154/83 97
08/18/24 07:36 08/18/24 07:36 08/18/24 07:36 08/18/24 07:36 08/18/24 07:36
Physical Exam
Constitutional: Comfortable
Cardiovascular: Regular Rate and S1/S2
Gastrointestinal: Soft, Non Tender and Non Distended
Genito-Urinary: Boss and Clear Urine (dark)
Neurological: AO x 3
Objective Data
Lab Data
Lab Results
08/18/24 08:41
08/18/24 09:12
Estimated Creat Clear 88 ml/min 08/18/24 09:12
Lactic Acid Cancelled 08/16/24 04:01
Total Bilirubin 0.6 mg/dl (0.2-1.3) 08/16/24 05:36
AST 25 U/L (17-59) 08/16/24 05:36
ALT 17 U/L (0-50) 08/16/24 05:36
Alkaline Phosphatase 50 U/L (38-126) 08/16/24 05:36
Most recent labs reviewed.
Micro Results:
08/15/24 08:37 Urine Culture - Preliminary
Urine Enterococcus faecalis
Pseudomonas species
08/15/24 19:24 Blood Culture - Preliminary
Blood/Venous No Growth in 48 hours- Final report to follow
[2024-08-18] MEDS: REMERON 15 MG PO (22:28)
[2024-08-18 23:00] VITALS: BP 120/64
[2024-08-19] MEDS: MERREM 500 MG IV ×5 (00:56→23:34)
[2024-08-19] MEDS: AMPICILLIN 108 MG IV ×3 (00:57→12:28)
[2024-08-19] MEDS: REFRESH EYE DROPS (PF) 1 DROPS BOTH EYES ×2 (01:09→09:59)
[2024-08-19] MEDS: STERILE WATER FOR INJECTION 10 ML IV ×5 (01:18→23:34)
[2024-08-19 06:00] VITALS: BMI 27.7
[2024-08-19 06:53] LABS: Hematocrit 34.2 % (39.0-52.0); Hemoglobin 11.9 g/dL (13.0-18.0); Mean Corp Hgb Conc. 34.8 g/dL (33.0-37.0); Mean Corpuscular Hgb 30.2 pg (27.0-31.0); Mean Corpuscular Volume 86.8 fL (80.0-94.0); Mean Platelet Volume 9.9 fL (7.4-10.4); Platelet Count 190 10^3/uL (130-400); Red Blood Cell Count 3.94 10^6/uL (4.70-6.10); White Blood Cell Count 7.3 10^3/uL (4.8-10.8)
[2024-08-19 07:05] LABS: Blood Urea Nitrogen 19 mg/dl (9-20); Calcium 7.9 mg/dl (8.4-10.2); Carbon Dioxide 28 mmol/L (22-30); Chloride 106 mmol/L (98-107); Estimated Creatinine Clearance 79 ml/min; Glucose 99 mg/dl (70-99); Potassium 3.9 mmol/L (3.5-5.1); Sodium 141 mmol/L (135-145); eGFR > 60.00
[2024-08-19 07:45] VITALS: BP 138/67
[2024-08-19] MEDS: NAMENDA 10 MG PO ×2 (08:35→20:05)
[2024-08-19] MEDS: VISBIOME 1 CAP PO (08:35)
--- NOTE | 2024-08-19 12:02 | W.PN.HOSP.TC ---
Today's Communication/Plan
-
Continue current care
Assessment / Plan
Assessment / Plan
Gen-AAOx3, NAD
HEENT-NC, AT, anicteric, clear oral mm
Neck-supple
CV-reg, no M, +S1/S2
Lungs-clear B/L
Abd-soft, NT, ND
Ext-no edema
Musculoskeletal-no cyanosis, clubbing
Skin-warm and dry
Neuro-grossly non-focal
Psych-calm, cooperative
Acute hypoxic respiratory failure -required 6 L of oxygen on admission, down to 2 L currently. Chest x-ray clear. Etiology unclear but differential diagnosis includes sepsis.
Sepsis due to CAUTI -sepsis resolved. Leukocytosis resolved. Afebrile. Blood cultures negative. Urine culture with Pseudomonas and Enterococcus. Currently on IV ampicillin and meropenem per ID, day 4 of 7.
Hx of neurogenic bladder with Chronic Chanel and BPH s/p TURP
Dementia with acute metabolic encephalopathy due to sepsis -suspect mental status improved back to baseline.
Hypokalemia -resolved.
Tachycardia initially wider complex in setting of RBBB
- resolved to narrow complex sinus tach in setting of sepsis
- appreciate cards input
- Echo shows LVEF 60 to 65%, normal diastolic function, no regional wall motion abnormalities. No significant valvular disease.
Posterior cortical atrophy with left-sided weakness, sensory deficit, visual deterioration
- prn Seroquel TID; additional 25mg dose is acceptable to control Anxiety
CKD stage 2
Reactive airway disease
Chronic tremor
Chronic left-sided weakness
DVT ppx: SCDs
Code: DNR
Dispo -Home with caregivers after completion of antibiotics.
Anticipated Discharge: > 48 hours
Subjective/Interval History
-
Date of Service: August 19, 2024
Patient seen and examined. No complaints.
Objective Data
-
Labs:
Laboratory Results
08/19/24
06:08
WBC 7.3
Hgb 11.9 L
Hct 34.2 L
Plt Count 190
Sodium 141
Potassium 3.9
Chloride 106
Carbon Dioxide 28
BUN 19
Creatinine 1.0
Glucose 99
Calcium 7.9 L
Vital Signs:
Vital Signs
Temp Pulse Resp BP Pulse Ox
98.2 F 67 16 138/67 95
08/19/24 07:45 08/19/24 07:45 08/19/24 07:45 08/19/24 07:45 08/19/24 07:45
I&O
08/18/24 08/19/24 08/20/24
06:59 06:59 06:59
Intake Total 1520 / 1520 510 / 510
Output Total 1400 / 1400 1325 / 1325
Balance 120 / 120 -815 / -815
Review of Systems
-
History Source: Patient
All other systems: Reviewed and negative
--- NOTE | 2024-08-19 13:06 | W.PN.ID1 ---
Date of Service
Date of Service: August 19, 2024
Today's Communication
- Continue Meropenem 500mg IV q6 x 7 days through 08/23 6AM dose, then dc home.
- Transition IV ampicillin (d3) to amoxicillin 500mg po q8H through 08/23/24.
Assessment / Plan
# CAUTI
# hx Recurrent Pseudomonas UTI
# Fever resolved
# Leukocytosis - resolved
# Zosyn, cefepime intolerance
- Renal US and CT a/p: no hydronephrosis
- Boss changed in ED 08/15
- blood cx neg
-Ucx: Pseudomonas (cipro resistant) and Enterococcus
- Continue Meropenem 500mg IV q6 x 7 days through 08/23 6AM dose, then dc home.
- Transition IV ampicillin (d3) to amoxicillin 500mg po q8H through 08/23/24.
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
Reactive airway disease
BPH status post TURP
Neurogenic bladder� chronic boss since 04/22/24
CKD3
Posterior cortical atrophy with left-sided weakness, sensory deficit, visual deterioration
Fatty liver
Sacral wound
IBS
Tremors
hx Right epididymitis/orchitis with Pseudomonas (04/2024)
Chief Complaint
-: UTI
Subjective / Review of Systems
Feels fine today.
Vital Signs / Physical Exam
Vital Signs
Vital Signs
Temp Pulse Resp BP Pulse Ox
98.2 F 67 16 138/67 95
08/19/24 07:45 08/19/24 07:45 08/19/24 07:45 08/19/24 07:45 08/19/24 11:36
Physical Exam
Constitutional: No Acute Distress and Comfortable
Pulmonary: Clear
Gastrointestinal: Soft, Non Tender and Non Distended
Genito-Urinary: Boss and Clear Urine
Neurological: Awake and Alert
Objective Data
Lab Data
Lab Results
08/19/24 06:08
08/19/24 06:08
Estimated Creat Clear 79 ml/min 08/19/24 06:08
Lactic Acid Cancelled 08/16/24 04:01
Total Bilirubin 0.6 mg/dl (0.2-1.3) 08/16/24 05:36
AST 25 U/L (17-59) 08/16/24 05:36
ALT 17 U/L (0-50) 08/16/24 05:36
Alkaline Phosphatase 50 U/L (38-126) 08/16/24 05:36
Most recent labs reviewed.
Micro Results:
08/15/24 08:37 Urine Culture - Final
Urine Pseudomonas aeruginosa
Enterococcus faecalis
08/15/24 19:24 Blood Culture - Preliminary
Blood/Venous No Growth in 72 hours- Final report to follow
Care Review
Plan reviewed with: Physician (Dr. Green)
[2024-08-19] MEDS: SEROQUEL 25 MG PO ×2 (13:15→20:05)
[2024-08-19 15:30] VITALS: BP 139/45
[2024-08-19] MEDS: AMOXIL 500 MG PO ×2 (16:30→20:05)
[2024-08-19] MEDS: REMERON 15 MG PO (20:05)
[2024-08-19 23:35] VITALS: BP 146/91
--- NOTE | 2024-08-20 04:19 | DOWNTIME ---
There was a [employer] Client Material Assistant Downtime on 08/20/2024 from 0100 to 08/20/2024 at 0355. Downtime documentation of patient's care, including medication administrations, has been reconciled in the electronic record per guidelines. Refer to the
patient's paper chart under the miscellaneous tab to see printed paper medication records and downtime forms.
[2024-08-20] MEDS: MERREM 500 MG IV ×4 (05:13→23:30)
[2024-08-20] MEDS: STERILE WATER FOR INJECTION 10 ML IV ×4 (05:14→23:30)
[2024-08-20 06:00] VITALS: BMI 27.5
[2024-08-20 07:30] VITALS: BP 132/66
[2024-08-20] MEDS: VISBIOME 1 CAP PO (08:12)
[2024-08-20] MEDS: NAMENDA 10 MG PO ×2 (08:12→20:00)
[2024-08-20] MEDS: AMOXIL 500 MG PO ×3 (08:12→20:00)
--- NOTE | 2024-08-20 12:39 | W.PN.HOSP.TC ---
Today's Communication/Plan
-
Continue antibiotics
PT/OT
Assessment / Plan
Assessment / Plan
Gen-AAOx3, NAD
HEENT-NC, AT, anicteric, clear oral mm
Neck-supple
CV-reg, no M, +S1/S2
Lungs-clear B/L
Abd-soft, NT, ND
Ext-no edema
Musculoskeletal-no cyanosis, clubbing
Skin-warm and dry
Neuro-grossly non-focal
Psych-calm, cooperative
Acute hypoxic respiratory failure -required 6 L of oxygen on admission, down to 2 L currently. Chest x-ray clear. Etiology unclear but differential diagnosis includes sepsis.
Sepsis due to CAUTI -sepsis resolved. Leukocytosis resolved. Afebrile. Blood cultures negative. Urine culture with Pseudomonas and Enterococcus. Currently on amoxicillin and meropenem per ID, day 5 of 7. ID recommends discharge 08/23 morning
after the 6 AM dose of antibiotics.
Hx of neurogenic bladder with Chronic Chanel and BPH s/p TURP
Dementia with acute metabolic encephalopathy due to sepsis -suspect mental status improved back to baseline.
Hypokalemia -resolved.
Tachycardia initially wider complex in setting of RBBB
- resolved to narrow complex sinus tach in setting of sepsis
- appreciate cards input
- Echo shows LVEF 60 to 65%, normal diastolic function, no regional wall motion abnormalities. No significant valvular disease.
Posterior cortical atrophy with left-sided weakness, sensory deficit, visual deterioration
- prn Seroquel TID; additional 25mg dose is acceptable to control Anxiety
CKD stage 2
Reactive airway disease
Chronic tremor
Chronic left-sided weakness
DVT ppx: SCDs
Code: DNR
PT/OT
Dispo -Home with caregivers after completion of antibiotics.
Anticipated Discharge: > 48 hours
Subjective/Interval History
-
Date of Service: August 20, 2024
Patient seen and examined. No complaints. Family at the bedside.
Objective Data
-
Vital Signs:
Vital Signs
Temp Pulse Resp BP Pulse Ox
98.1 F 61 16 132/66 96
08/20/24 07:30 08/20/24 07:30 08/20/24 07:30 08/20/24 07:30 08/20/24 09:30
I&O
08/19/24 08/20/24 08/21/24
06:59 06:59 06:59
Intake Total 510 / 510 600 / 600
Output Total 1325 / 1325 1200 / 1200
Balance -815 / -815 -600 / -600
Review of Systems
-
History Source: Patient
All other systems: Reviewed and negative
[2024-08-20 15:12] VITALS: BP 149/71; PULSE 72
[2024-08-20 15:16] VITALS: BP 149/71
[2024-08-20 15:30] VITALS: BP 136/60
--- NOTE | 2024-08-20 16:33 | W.PN.ID1 ---
Date of Service
Date of Service: August 20, 2024
Today's Communication
- Continue Meropenem 500mg IV q6 x 7 days through 08/23 6AM dose, then dc home.
- Continue amoxicillin 500mg po q8H through 08/23/24.
Assessment / Plan
# CAUTI
# hx Recurrent Pseudomonas UTI
# Fever resolved
# Leukocytosis - resolved
# Zosyn, cefepime intolerance
- Renal US and CT a/p: no hydronephrosis
- Boss changed in ED 08/15
- blood cx neg
-Ucx: Pseudomonas (cipro resistant) and Enterococcus
- Continue Meropenem 500mg IV q6 x 7 days through 08/23 6AM dose, then dc home.
- Continue amoxicillin 500mg po q8H through 08/23/24.
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
Reactive airway disease
BPH status post TURP
Neurogenic bladder� chronic boss since 04/22/24
CKD3
Posterior cortical atrophy with left-sided weakness, sensory deficit, visual deterioration
Fatty liver
Sacral wound
IBS
Tremors
hx Right epididymitis/orchitis with Pseudomonas (04/2024)
Chief Complaint
-: UTI
Subjective / Review of Systems
Doing well.
Vital Signs / Physical Exam
Vital Signs
Vital Signs
Temp Pulse Resp BP Pulse Ox
98.1 F 61 16 132/66 96
08/20/24 07:30 08/20/24 07:30 08/20/24 07:30 08/20/24 07:30 08/20/24 09:30
Physical Exam
Constitutional: No Acute Distress and Comfortable
Gastrointestinal: Soft, Non Tender and Non Distended
Genito-Urinary: Clear Urine; Negative CVA Tenderness
Objective Data
Lab Data
Lab Results
08/19/24 06:08
08/19/24 06:08
Estimated Creat Clear 79 ml/min 08/19/24 06:08
Lactic Acid Cancelled 08/16/24 04:01
Total Bilirubin 0.6 mg/dl (0.2-1.3) 08/16/24 05:36
AST 25 U/L (17-59) 08/16/24 05:36
ALT 17 U/L (0-50) 08/16/24 05:36
Alkaline Phosphatase 50 U/L (38-126) 08/16/24 05:36
Most recent labs reviewed.
Micro Results:
08/15/24 19:24 Blood Culture - Preliminary
Blood/Venous No Growth in 4 days- Final report to follow
08/15/24 08:37 Urine Culture - Final
Urine Pseudomonas aeruginosa
Enterococcus faecalis
[2024-08-20] MEDS: SEROQUEL 25 MG PO (18:33)
[2024-08-20] MEDS: REMERON 15 MG PO (20:00)
[2024-08-20] MEDS: REFRESH EYE DROPS (PF) 1 DROPS BOTH EYES (23:37)
[2024-08-20 23:40] VITALS: BP 150/69
[2024-08-21] MEDS: SEROQUEL 25 MG PO ×4 (04:32→23:30)
[2024-08-21] MEDS: STERILE WATER FOR INJECTION 10 ML IV ×4 (05:27→23:30)
[2024-08-21] MEDS: MERREM 500 MG IV ×4 (05:27→23:30)
[2024-08-21 06:00] VITALS: BMI 27.6
[2024-08-21 07:39] VITALS: BP 149/119
[2024-08-21] MEDS: NAMENDA 10 MG PO ×2 (08:40→20:57)
[2024-08-21] MEDS: VISBIOME 1 CAP PO (08:40)
[2024-08-21] MEDS: AMOXIL 500 MG PO ×3 (08:40→20:57)
--- NOTE | 2024-08-21 10:44 | W.PN.HOSP.TC ---
Today's Communication/Plan
-
Continue current care
Assessment / Plan
Assessment / Plan
Gen-AAOx3, NAD
HEENT-NC, AT, anicteric, clear oral mm
Neck-supple
CV-reg, no M, +S1/S2
Lungs-clear B/L
Abd-soft, NT, ND
Ext-no edema
Musculoskeletal-no cyanosis, clubbing
Skin-warm and dry
Neuro-grossly non-focal
Psych-calm, cooperative
Acute hypoxic respiratory failure -required 6 L of oxygen on admission, down to 2 L currently. Chest x-ray clear. Etiology unclear but differential diagnosis includes sepsis.
Sepsis due to CAUTI -sepsis resolved. Leukocytosis resolved. Afebrile. Blood cultures negative. Urine culture with Pseudomonas and Enterococcus. Currently on amoxicillin and meropenem per ID, day 6 of 7. ID recommends discharge 08/23 morning
after the 6 AM dose of antibiotics.
Hx of neurogenic bladder with Chronic Chanel and BPH s/p TURP
Dementia with acute metabolic encephalopathy due to sepsis -suspect mental status improved back to baseline.
Hypokalemia -resolved.
Tachycardia initially wider complex in setting of RBBB
- resolved to narrow complex sinus tach in setting of sepsis
- appreciate cards input
- Echo shows LVEF 60 to 65%, normal diastolic function, no regional wall motion abnormalities. No significant valvular disease.
Posterior cortical atrophy with left-sided weakness, sensory deficit, visual deterioration
- prn Seroquel TID; additional 25mg dose is acceptable to control Anxiety
CKD stage 2
Reactive airway disease
Chronic tremor
Chronic left-sided weakness
DVT ppx: SCDs
Code: DNR
PT/OT -Home health recommended.
Dispo -Home with caregivers after completion of antibiotics. Updated family at the bedside.
Anticipated Discharge: 24 - 48 hours
Subjective/Interval History
-
Date of Service: August 21, 2024
Patient seen and examined. No complaints.
Objective Data
-
Vital Signs:
Vital Signs
Temp Pulse Resp BP Pulse Ox
98.0 F 73 16 149/119 93
08/21/24 07:39 08/21/24 07:39 08/21/24 07:39 08/21/24 07:39 08/21/24 07:39
I&O
08/20/24 08/21/24 08/22/24
06:59 06:59 06:59
Intake Total 600 / 600 980 / 980
Output Total 1200 / 1200 950 / 950
Balance -600 / -600 30 / 30
Review of Systems
-
History Source: Patient
All other systems: Reviewed and negative
--- NOTE | 2024-08-21 11:57 | PTCARENOTE ---
patient without complaints, has occasional tremors, tolerating diet, turns with max assist x2-3, body very stiff and rigid, tends to lean to left side, vss, will continue to monitor.
--- NOTE | 2024-08-21 12:53 | W.PN.ID1 ---
Date of Service
Date of Service: August 21, 2024
Today's Communication
- Continue Meropenem 500mg IV q6 x 7 days through 08/23 6AM dose, then dc home.
- Continue amoxicillin 500mg po q8H through 08/23/24.
-ID will sign off. Call prn.
Assessment / Plan
# CAUTI
# hx Recurrent Pseudomonas UTI
# Fever resolved
# Leukocytosis - resolved
# Zosyn, cefepime intolerance
- Renal US and CT a/p: no hydronephrosis
- Boss changed in ED 08/15
- blood cx neg
-Ucx: Pseudomonas (cipro resistant) and Enterococcus
- Continue Meropenem 500mg IV q6 x 7 days through 08/23 6AM dose, then dc home.
- Continue amoxicillin 500mg po q8H through 08/23/24.
ID will sign off.
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
Reactive airway disease
BPH status post TURP
Neurogenic bladder� chronic boss since 04/22/24
CKD3
Posterior cortical atrophy with left-sided weakness, sensory deficit, visual deterioration
Fatty liver
Sacral wound
IBS
Tremors
hx Right epididymitis/orchitis with Pseudomonas (04/2024)
Chief Complaint
-: UTI
Subjective / Review of Systems
Continues to feel well.
Vital Signs / Physical Exam
Vital Signs
Vital Signs
Temp Pulse Resp BP Pulse Ox
98.0 F 73 16 149/119 93
08/21/24 07:39 08/21/24 07:39 08/21/24 07:39 08/21/24 07:39 08/21/24 07:39
Physical Exam
Constitutional: No Acute Distress and Comfortable
Pulmonary: Clear
Gastrointestinal: Soft, Non Tender and Non Distended
Genito-Urinary: Clear Urine
Neurological: Awake and Alert
Objective Data
Lab Data
Lab Results
08/19/24 06:08
08/19/24 06:08
Estimated Creat Clear 79 ml/min 08/19/24 06:08
Lactic Acid Cancelled 08/16/24 04:01
Total Bilirubin 0.6 mg/dl (0.2-1.3) 08/16/24 05:36
AST 25 U/L (17-59) 08/16/24 05:36
ALT 17 U/L (0-50) 08/16/24 05:36
Alkaline Phosphatase 50 U/L (38-126) 08/16/24 05:36
Most recent labs reviewed.
Micro Results:
08/15/24 19:24 Blood Culture - Final
Blood/Venous No Growth - Final Report
08/15/24 08:37 Urine Culture - Final
Urine Pseudomonas aeruginosa
Enterococcus faecalis
--- NOTE | 2024-08-21 15:16 | CM ---
Chart reviewed.
Pt currently on IV abx thru 08/23. Can d/c upon abx completion per hospitalist note
Will need ambulance transport
Pt lives w/ family and has private caregivers in the home for support
[facility] palliative in the home
Current w/ [facility] services
[facility]

[facility] Palliative

Plan: Anticipated d/c over weekend via ambulance transport
Home w/ resumption of [facility]
[2024-08-21 16:00] VITALS: BP 167/64
[2024-08-21] MEDS: REFRESH EYE DROPS (PF) 1 DROPS BOTH EYES (17:56)
--- NOTE | 2024-08-21 19:24 | PTCARENOTE ---
serequel effective for patient's anxiety at 1354
[2024-08-21] MEDS: REMERON 15 MG PO (20:57)
[2024-08-21 23:37] VITALS: BP 161/69
[2024-08-22] MEDS: MERREM 500 MG IV ×3 (05:39→17:24)
[2024-08-22] MEDS: STERILE WATER FOR INJECTION 10 ML IV ×3 (05:39→17:24)
[2024-08-22 06:00] VITALS: BMI 27.0
[2024-08-22 07:36] VITALS: BP 128/72
[2024-08-22] MEDS: AMOXIL 500 MG PO ×3 (09:03→22:39)
[2024-08-22] MEDS: NAMENDA 10 MG PO ×2 (09:03→19:50)
[2024-08-22] MEDS: VISBIOME 1 CAP PO (09:04)
--- NOTE | 2024-08-22 10:17 | CM ---
Pt seen at bedside w/ daughter, Ani.
Pt can d/c after IV abx dose tomorrow, 08/23 per ID note
Pt lives w/ family and has private caregivers
Pt current w/ [facility] in the home
Pt will need ambulance transport. Transport forms given to community living specialist
Daughter is requesting 10 am transport time
Hospitalist agreed to put in d/c order for transport set up
Updated clinicals sent to [facility] via [facility]

[facility] Palliative

Plan: Home in AM via ambulance transport
Resume [facility] services
--- NOTE | 2024-08-22 11:24 | W.PN.HOSP.TC ---
Today's Communication/Plan
-
Continue current care
Assessment / Plan
Assessment / Plan
Gen-AAOx3, NAD
HEENT-NC, AT, anicteric, clear oral mm
Neck-supple
CV-reg, no M, +S1/S2
Lungs-clear B/L
Abd-soft, NT, ND
Ext-no edema
Musculoskeletal-no cyanosis, clubbing
Skin-warm and dry
Neuro-grossly non-focal
Psych-calm, cooperative
Acute hypoxic respiratory failure -required 6 L of oxygen on admission, down to 2 L currently. Chest x-ray clear. Etiology unclear but differential diagnosis includes sepsis.
Sepsis due to CAUTI -sepsis resolved. Leukocytosis resolved. Afebrile. Blood cultures negative. Urine culture with Pseudomonas and Enterococcus. Currently on amoxicillin and meropenem per ID, day 7 of 7. ID recommends discharge 08/23 morning
after the 6 AM dose of antibiotics.
Hx of neurogenic bladder with Chronic Chanel and BPH s/p TURP
Dementia with acute metabolic encephalopathy due to sepsis -suspect mental status improved back to baseline.
Hypokalemia -resolved.
Tachycardia initially wider complex in setting of RBBB
- resolved to narrow complex sinus tach in setting of sepsis
- appreciate cards input
- Echo shows LVEF 60 to 65%, normal diastolic function, no regional wall motion abnormalities. No significant valvular disease.
Posterior cortical atrophy with left-sided weakness, sensory deficit, visual deterioration
- prn Seroquel TID; additional 25mg dose is acceptable to control Anxiety
CKD stage 2
Reactive airway disease
Chronic tremor
Chronic left-sided weakness
DVT ppx: SCDs
Code: DNR
PT/OT -Home health recommended.
Dispo -Home with caregivers after completion of antibiotics. Updated family at the bedside.
Anticipated Discharge: Within 24 hours
Subjective/Interval History
-
Date of Service: August 22, 2024
Patient seen and examined. No complaints.
Objective Data
-
Vital Signs:
Vital Signs
Temp Pulse Resp BP Pulse Ox
97.8 F 70 17 128/72 94
08/22/24 07:36 08/22/24 07:36 08/22/24 07:36 08/22/24 07:36 08/22/24 07:36
I&O
08/21/24 08/22/24 08/23/24
06:59 06:59 06:59
Intake Total 980 / 980 320 / 320
Output Total 950 / 950 600 / 600
Balance 30 / 30 -280 / -280
Review of Systems
-
History Source: Patient
All other systems: Reviewed and negative
[2024-08-22] MEDS: SEROQUEL 25 MG PO ×2 (14:21→19:50)
[2024-08-22 14:49] VITALS: BP 113/59
[2024-08-22] MEDS: REMERON 15 MG PO (19:50)
[2024-08-22] MEDS: REFRESH EYE DROPS (PF) 1 DROPS BOTH EYES (22:53)
[2024-08-22 23:00] VITALS: BP 124/56
[2024-08-23] MEDS: MERREM 500 MG IV ×2 (00:12→06:09)
[2024-08-23] MEDS: STERILE WATER FOR INJECTION 10 ML IV ×2 (00:13→06:09)
[2024-08-23] MEDS: SEROQUEL 25 MG PO (00:21)
[2024-08-23] MEDS: REFRESH EYE DROPS (PF) 1 DROPS BOTH EYES ×2 (03:01→08:03)
[2024-08-23 06:00] VITALS: BMI 27.2
[2024-08-23 07:00] VITALS: BP 100/78
[2024-08-23] MEDS: VISBIOME 1 CAP PO (08:03)
[2024-08-23] MEDS: AMOXIL 500 MG PO (08:03)
[2024-08-23] MEDS: NAMENDA 10 MG PO (08:03)
--- NOTE | 2024-08-23 09:52 | PTCARENOTE ---
Notified of a newly developed flat red rash on inner aspect of R arm and chest. No new orders at this time. Pt's daughter informed and will continue to monitor along with home health nurses.
--- NOTE | 2024-08-23 12:22 | CM ---
patient being dc home today via ambulance transport at 10am.imm letter already signed,dc home with [facility].
--- NOTE | 2024-08-25 12:57 | W.DS.TRANS ---
DC Summary - Court Stenographer
-
Discharge Instructions:
Discharge Diagnosis/Procedures Sepsis, UTI
Diet Regular
Activity As tolerated,With assistance
Driving Restrictions No driving
Bathing Restrictions None
Other Services VN
Instructions:
Stand-Alone Forms:
Changes to Home Medications: No
Discharge Medications:
DC Medications w/original date entered in [facility]
memantine 10 mg tablet 10 mg PO BID cognition/memory 09/09/20
methenamine hippurate 1 gram tablet 1 g PO BID Urinary Issue 02/14/24
cranberry 500 mg capsule 1,500 mg PO NOON Supplement 03/24/24
quetiapine 25 mg tablet (Seroquel) 25 mg PO TIDPRN PRN anxiety 03/27/24
Lactobac no.2-Bifidobac no.1-S. thermo 112.5 billion cell capsule (Visbiome) 1 cap PO DAILY probiotic 08/15/24
ammonium lactate 12 % lotion 1 applic topical DAILYPRN PRN dryness 08/15/24
ascorbic acid (vitamin C) 500 mg chewable tablet (Vitamin C) 1 g PO DAILY Supplement 08/15/24
d-mannose 500 mg capsule 500 mg PO DAILY Supplement 08/15/24
mirtazapine 15 mg tablet 15 mg PO HS depression/sleep 08/15/24
nystatin 100,000 unit/gram topical cream 1 applic topical DAILYPRN PRN groin area redness 08/15/24
psyllium 1 packet PO DAILYPRN PRN constipation 08/15/24
Home Medication Changes
Pending Results: No
== END 2024-08-23 10:54 | disposition home health service (06) | DRG 698 ==
LOC: 3 WEST ACU 13:02
PROVIDERS: Internal Medicine; ADMITTING PHYSICIAN Internal Medicine; ATTENDING PHYSICIAN Hospitalist; CONSULT PHYSICIAN Internal Medicine Cardiovascular Disease; CONSULT PHYSICIAN Internal Medicine Infectious Disease; EMERGENCY PHYSICIAN Emergency Medicine; FAMILY PHYSICIAN Internal Medicine
DX: T83.511A Infection and inflammatory reaction due to indwelling urethral catheter, initial encounter (principal); A41.9 Sepsis, unspecified organism; G93.41 Metabolic encephalopathy; J96.01 Acute respiratory failure with hypoxia; R47.01 Aphasia; F02.83 Dementia in other diseases classified elsewhere, unspecified severity, with mood disturbance; F02.84 Dementia in other diseases classified elsewhere, unspecified severity, with anxiety; Z16.23 Resistance to quinolones and fluoroquinolones; Y84.6 Urinary catheterization as the cause of abnormal reaction of the patient, or of later complication, without mention of misadventure at the time of the procedure; Y92.9 Unspecified place or not applicable; Y73.2 Prosthetic and other implants, materials and accessory gastroenterology and urology devices associated with adverse incidents; N39.0 Urinary tract infection, site not specified; F32.A Depression, unspecified; G30.9 Alzheimer's disease, unspecified; I45.4 Nonspecific intraventricular block; R53.1 Weakness; I45.10 Unspecified right bundle-branch block; N18.2 Chronic kidney disease, stage 2 (mild); E87.6 Hypokalemia; K76.0 Fatty (change of) liver, not elsewhere classified; J45.909 Unspecified asthma, uncomplicated; K58.9 Irritable bowel syndrome, unspecified; N31.9 Neuromuscular dysfunction of bladder, unspecified; N40.0 Benign prostatic hyperplasia without lower urinary tract symptoms; G31.9 Degenerative disease of nervous system, unspecified; Z66 Do not resuscitate; Z87.440 Personal history of urinary (tract) infections; Z88.8 Allergy status to other drugs, medicaments and biological substances; Z90.79 Acquired absence of other genital organ(s); Z11.52 Encounter for screening for COVID-19
CPT/HCPCS: 51702; 71046; 74176; 76770; 80048; 80053; 81003; 81015; 83605; 83735; 85025; 85027; 87040; 87077; 87086; 87186; 87811; 93005; 93306; 96361; 96374; 97163; 97166; 97530; 97535; 99285; J2185; Q9950

== ENCOUNTER 2024-10-06 20:15 | Emergency (ER) | payer MEDICARE, OTHER, SELFPAY ==
[2024-10-06 20:18] VITALS: BP 134/80; BMI 29.8
--- NOTE | 2024-10-06 20:35 | ED.GENMED ---
History of Present Illness
General
Chief Complaint: Urinary Symptoms
Source: spouse
Exam Limitations: none
Time Seen by Provider: 10/06/24 20:31
Nursing documentation reviewed up to this point in time: agreed with
History of Present Illness
History of Present Illness:
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 reports today patient has been complaining of discomfort in his penis area and she has noticed some cloudy urine and then in
the afternoon he did develop a temperature of 101 and was mildly confused. With his history of posterior cortical atrophy he does memory issues and difficulty speaking but was more confused than normal as per . She does mention however that he
typically 's during this time and this was a possibility.
He is due to have his catheter changed next week.
reports patient is back to his normal baseline mental status.
reports no recent URI symptoms cough cold symptoms. no vomiting no diarrhea .
Past History
Past History
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
words), UTI, Pseudomonas in the urine, BPH)
ED Past Surgical History: None, Orthopedic (meniscus repair) and Other (anal fissure repair)
Social History
Tobacco: Non-smoker
Alcohol: None
Drug: None
Personal:
Living: with family
Employment: Retired
Review of Systems
Review of Systems
Allergies reviewed?: Yes
Other source history: family
All Other Systems: ROS reviewed and negative except as documented in HPI and ROS
Constitutional: Reports fever
Respiratory: Reports no symptoms
Phy Exam
General Physical Exam
General Presentation: no apparent distress
General age: appears stated age
General Skin: warm and dry
General Habitus: elderly
General Mental: alert
General Hydration: appears well hydrated
Cardiovascular Exam
Cardiovascular Exam: regular rate/rhythm, no murmur and normal peripheral pulses
Pulmonary Exam
Pulmonary Exam: lungs clear and no respiratory distress
Gastrointestinal Exam
Gastrointestinal Exam: non tender and soft
Genitourinary Exam Male
Exam Male: other (catheter in place with small purulent drainage at site of catheter insertion site )
Neurological Exam
Neurological Exam: alert
Musculoskeletal Exam
Musculoskeletal Exam: full ROM
Skin Exam
Skin Exam: normal color and warm/dry
Psychiatric Exam
Psychiatric Exam: normal mood/affect
Course
Orders/Labs/Results
Orders:
Orders
10/06/24 20:29
CMP [Comprehensive Metabolic Panel] Urgent
Complete Blood Count/With Diff Urgent
Urinalysis Reflex To Culture Urgent
Date Specimen was Collected: 10/06/24
Time Specimen was Collected: 20:28
Urine Microscopic Reflex Cult Urgent
Urine Culture Urgent
CHARANJIT Source: U
Specimen Description:
Date Specimen was Collected: 10/06/24
Time Specimen was Collected: 20:28
Abnormal Lab Results
10/06/24
20:29
Absolute Neuts (auto) 6.9 H 10^3/uL
(1.4-6.5)
Absolute Monos (auto) 0.8 H 10^3/uL
(0.1-0.6)
Lymphocytes % 18.8 L %
(20.5-51.1)
Glucose 106 H mg/dl
(70-99)
Ur Occult Blood Reflex 3+ A
(Negative)
Urine Nitrite (Reflex) Positive A
(Negative)
Leukocyte Esterase Rfl 2+ A
(Negative)
Urine RBC 3-6 A /HPF
(0-2)
Urine WBC (Reflex) >100 A /HPF
(0-5)
Urine Bacteria (Reflex) Few A
(Negative)
Urine Albumin (Reflex) 1+ A
(Neg - Trace)
10/06/24 20:29
10/06/24 20:29
Vital Signs
Initial and Last Documented VS:
Initial Vital Signs
Temp Pulse Resp BP Pulse Ox
98.5 F 70 16 134/80 97
10/06/24 20:18 10/06/24 20:18 10/06/24 20:18 10/06/24 20:18 10/06/24 20:18
Last Documented Vital Signs
Temp Pulse Resp BP Pulse Ox
98.5 F 70 16 134/80 97
10/06/24 20:18 10/06/24 20:18 10/06/24 20:18 10/06/24 20:18 10/06/24 20:18
Environmental Intern consulted with Physician
Environmental Intern consulted with physician?: Yes
Name of Physician Consulted: Alyce
MDM/Problems Addressed
MDM/Problems Addressed:
74-year-old male with posterior cortical atrophy memory issues presents for evaluation. Patient was complaining discomfort in his penis at site of catheter and noticed that urine was cloudy. He did develop a low-grade fever at home this
afternoon was mildly confused. She reports she was concerned about UTI as he has presented this way in the past. Patient presents here awake alert at baseline as per afebrile with a normal white count, stable renal function and chemistry.
Urinalysis does appears infected cloudy urine and slightly purulent at insertion site. pt had complained of discomfort in the penis area. cwill change catheter as patient is due for change anyway but plan to treat for UTI. Patient is
nontachycardic no acute distress here in the ER.
With cloudy urine and history of reported fever with discomfort in the penis area will treat with a one-time dose of fosfomycin. Prior cultures reviewed from August 2024.
Repeat temp taken by myself 97.5. Discharge home with outpatient follow-up with either his urologist or family doctor. All instructions reviewed with . Patient has been back to baseline since being here in the ER and nontoxic appearing
Chronic conditions affecting care:
Chronic Chanel catheter posterior cortical atrophy memory issues.
*Pulse Oximetry
Patient hypoxic: no
*Critical Care Note
Total Time (30-74mins, 75-104mins- exclusive of procedures): Not Applicable
Data Reviewed
Review of Other/Old Records Reveals: Labs and Discharge Summary
ED Attending Note
-
Portions of this chart may have been created with voice recognition software.� Occasional wrong word or��sound alike� substitutions may have occurred due to the inherent limitations of voice recognition software.
Discharge Plan
Departure
Patient Disposition: Home (Routine Discharge)
Date of Disposition: 10/06/24
Time of Disposition: 22:05
Patient with high blood pressure during this ER visit?: Yes
Condition: Fair
Covid-19: Not Applicable
Discharge Problem:
Urinary tract infection
Instructions: Urinary Tract Infection, Adult (DC), BLOOD PRESSURE
Prescriptions:
No Action
memantine 10 MG tablet
10 mg PO BID
Patient Comments:
08/15/2024, pt. crushes these tablets.
methenamine hippurate 1 gram Tablet
1 g PO BID
Patient Comments:
08/15/2024, pt. crushes these tablets.
cranberry 500 mg Capsule
1,500 mg PO NOON
Patient Comments:
08/15/2024, gummies.
quetiapine [Seroquel] 25 mg Tablet
25 mg PO TIDPRN PRN (Reason: anxiety)
psyllium Packet
1 packet PO DAILYPRN PRN (Reason: constipation)
nystatin 100,000 unit/gram Cream
1 applic TOPICAL DAILYPRN PRN (Reason: groin area redness)
ascorbic acid (vitamin C) [Vitamin C] 500 mg Tablet,Chewable
1 g PO DAILY
mirtazapine 15 mg Tablet
15 mg PO HS
Visbiome 112.5 billion cell Capsule
1 cap PO DAILY
d-mannose 500 mg Capsule
500 mg PO DAILY
ammonium lactate 12 % Lotion
1 applic TOPICAL DAILYPRN PRN (Reason: dryness)
Activity Restrictions/Additional Instructions:
Chanel catheter was changed here patient was treated with one-time dose of fosfomycin(antibiotic for urinary tract) closely follow-up with family doctor or urologist the next of days for reevaluation. return if any worsening of symptoms including
any increased pain fever chills nausea vomiting or any further concerns.
Interventions
Interventions:
*Risk Screen - Suicide Last Done: 10/06/24 20:18
*General Assessment Last Done: 10/06/24 20:18
ED- Fall Risk Assessment Last Done: 10/06/24 20:18
*ED COVID-19 Vaccine History Last Done: 10/06/24 20:18
ED-Male Genitourinary Assessment Last Done: 10/06/24 20:18
Discharge Date and Time
Print Language: CZECH
[2024-10-06 20:41] LABS: % Basophils 0.5 % (0-2); % Eosinophils 3.5 % (0-6); % Immature Granulocytes 0.2 % (0-0.5); % Lymphocytes 18.8 % (20.5-51.1); % Monocytes 8.1 % (1.7-9.3); % Neutrophils 68.9 % (42.2-75.2); Absolute Basophils 0.1 10^3/uL (0-0.2); Absolute Eosinophils 0.4 10^3/uL (0-0.7); Absolute Lymphocytes 1.9 10^3/uL (1.2-3.4); Absolute Monocytes 0.8 10^3/uL (0.1-0.6); Absolute Neutrophils 6.9 10^3/uL (1.4-6.5); Hematocrit 44.4 % (39.0-52.0); Hemoglobin 15.2 g/dL (13.0-18.0); Mean Corp Hgb Conc. 34.2 g/dL (33.0-37.0); Mean Corpuscular Hgb 30.6 pg (27.0-31.0); Mean Corpuscular Volume 89.5 fL (80.0-94.0); Mean Platelet Volume 9.9 fL (7.4-10.4); Nucleated Red Blood Cells % 0 % (-); Platelet Count 271 10^3/uL (130-400); Red Blood Cell Count 4.96 10^6/uL (4.70-6.10); Red Cell Dist. Width 13.2 % (11.5-14.5)
[2024-10-06 20:53] LABS: ALT (SGPT) 24 U/L (0-50); AST (SGOT) 22 U/L (17-59); Albumin 4.1 g/dl (3.5-5.0); Alkaline Phosphatase 91 U/L (38-126); Blood Urea Nitrogen 18 mg/dl (9-20); Calcium 8.9 mg/dl (8.4-10.2); Carbon Dioxide 27 mmol/L (22-30); Chloride 104 mmol/L (98-107); Estimated Creatinine Clearance 55 ml/min; Glucose 106 mg/dl (70-99); Potassium 4.6 mmol/L (3.5-5.1); Sodium 141 mmol/L (135-145); Total Bilirubin 0.3 mg/dl (0.2-1.3); Total Protein 7.2 g/dl (6.3-8.2); eGFR 56.93
[2024-10-06 21:13] LABS: Urine Albumin 1+ (Neg - Trace); Urine Bilirubin Negative (Negative); Urine Character Very Cloudy (Clear); Urine Color Yellow; Urine Glucose Negative (Negative); Urine Ketone Negative (Negative); Urine Leukocyte 2+ (Negative); Urine Nitrite Positive (Negative); Urine Occult Blood 3+ (Negative); Urine Specific Gravity 1.025 (<1.030); Urine Urobilinogen Negative (Neg - 1+)
[2024-10-06 21:28] LABS: Urine Squamous Cell 0-2 /LPF (Few)
[2024-10-06 21:29] LABS: Urine Bacteria Few (Negative); Urine White Cell >100 /HPF (0-5)
[2024-10-06 22:00] VITALS: BP 136/117
[2024-10-06] MEDS: MONUROL 3 GM PO (22:37)
[2024-10-07] VITALS: BP 129/67
[2024-10-07 01:00] VITALS: BP 136/68
== END 2024-10-07 01:10 | disposition home or self-care (01) ==
LOC: EMR 20:15
PROVIDERS: EMERGENCY PHYSICIAN Student in an Organized Health Care Education/Training Program; FAMILY PHYSICIAN Internal Medicine
DX: N39.0 Urinary tract infection, site not specified (principal); R03.0 Elevated blood-pressure reading, without diagnosis of hypertension
CPT/HCPCS: 99283; 51702; 80053; 81003; 81015; 85025; 87077; 87086

== ENCOUNTER 2025-01-30 05:40 | Emergency (ER) | payer MEDICARE, OTHER, SELFPAY ==
[2025-01-30] VITALS (12 sets, daily range): BP systolic 118–164; BP diastolic 55–130; BMI 31.2
--- NOTE | 2025-01-30 06:16 | ED.GENMED ---
History of Present Illness
General
Chief Complaint: Abdominal Pain
Source: patient and spouse
Time Seen by Provider: 01/30/25 06:09
History of Present Illness
History of Present Illness:
74-year-old male complaining of lower abdominal pressure bladder spasm some urinating around his catheter. Has been an issue for close to a week. Catheter was changed 2 days ago. Urine leak is still occurring. Started Azo for bladder spasms with
minimal help. Currently is asymptomatic. No fever or chills. Started Cipro last Sunday for same
Past History
Past History
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
words), UTI, Pseudomonas in the urine, BPH)
ED Past Surgical History: None, Orthopedic (meniscus repair) and Other (anal fissure repair)
Social History
Tobacco: Non-smoker
Alcohol: None
Drug: None
Personal:
Living: with family
Employment: Retired
Review of Systems
Review of Systems
All Other Systems: Not applicable
Constitutional: Denies fever
Respiratory: Reports no symptoms
Cardiac: Reports no symptoms
: Denies flank pain
Phy Exam
Physical Exam
Physical Exam:
GENERAL: Alert. No distress. Chronically ill-appearing
EYE: Orbits normal.
NECK: Supple, no significant adenopathy.
ENT: Pharynx without erythema
CARDIAC: Regular rate and rhythm without any obvious murmurs.
LUNGS: Clear breath sounds,normal
ABDOMEN: Soft, no distention. Bowel sounds normal. Mild suprapubic tenderness. No rebound or guarding no mass or hernia. No previous scars.
: Chanel in place. Appears to have relatively dark urine orange in appearance in the catheter however relatively minimal amount in the bag.
NEUROLOGICAL: Alert. Grossly nonfocal. Flat affect
SKIN: Warm and dry, no rash or lesion, no discoloration, skin intact.
MUSCULOSKELETAL: No edema,no deformity.Good color
PSYCH: Normal and appropriate interaction.
Course
Orders/Labs/Results
Orders:
Orders
01/30/25 06:16
CT Abd/Pel (IV only)-DH only Urgent
Comment:
Reason For Exam: Lower abdominal pain bladder symptoms
0.9% Sodium Chloride 500 ml [Nss] 500 ml IV BOLUS
01/30/25 06:32
Complete Blood Count/With Diff Urgent
01/30/25 06:33
Comprehensive Metabolic Panel Urgent
Lipase Urgent
01/30/25 10:[address] Non Medication Order As Directed
Physician Order: remove existing 16 armenian indwelling urinary catheter
Above order entered?: Yes
01/30/25 10:09
Chanel Placement- Treatment ONCE
Reason for insertion: Acute Retention
Catheter- Indwelling As Directed
Reason for insertion: Acute Retention
Size: 18 armenian
Type: Indwelling
Discontinue Date/Time: 02/02/25 0600
Enema As Directed
Type: Milk and molasses
Amount: 30cc
Location: Rectal
01/30/25 10:23
Urinalysis Reflex To Culture Urgent
Date Specimen was Collected: 01/30/25
Time Specimen was Collected: 06:45
Urine Microscopic Reflex Cult Urgent
Urine Culture Urgent
CHARANJIT Source: U
Specimen Description:
Date Specimen was Collected: 01/30/25
Time Specimen was Collected: 06:45
Abnormal Lab Results
01/30/25 01/30/25 01/30/25
06:32 06:33 10:23
WBC 11.4 H 10^3/uL
(4.8-10.8)
Absolute Neuts (auto) 8.3 H 10^3/uL
(1.4-6.5)
Absolute Monos (auto) 0.7 H 10^3/uL
(0.1-0.6)
Lymphocytes % 17.2 L %
(20.5-51.1)
Chloride 108 H mmol/L
(98-107)
Glucose 116 H mg/dl
(70-99)
Ur Occult Blood Reflex 3+ A
(Negative)
Urine Nitrite (Reflex) Positive A
(Negative)
Leukocyte Esterase Rfl 1+ A
(Negative)
Urine Bacteria (Reflex) Moderate A
(Negative)
Urine Albumin (Reflex) 1+ A
(Neg - Trace)
01/30/25 06:32
01/30/25 06:33
Vital Signs
Initial and Last Documented VS:
Initial Vital Signs
Temp Pulse Resp BP Pulse Ox
98.1 F 63 12 149/70 95
01/30/25 05:43 01/30/25 05:43 01/30/25 05:43 01/30/25 05:43 01/30/25 05:43
Last Documented Vital Signs
Temp Pulse Resp BP Pulse Ox
97.6 F 56 13 140/128 98
01/30/25 12:41 01/30/25 12:41 01/30/25 12:41 01/30/25 12:41 01/30/25 12:41
MDM/Problems Addressed
Differential Diagnosis Includes:
Patient mostly complaining of urinary symptoms. To consider infection, catheter placement, blocked catheter. Theoretically could be a secondary issue near the bladder. Labs CT scan urine.
*Radiology
Radiology exam reviewed: radiology read reviewed (Coronary artery calcification. Stool in the rectum.)
*Pulse Oximetry
Patient hypoxic: no
*Critical Care Note
Total Time (30-74mins, 75-104mins- exclusive of procedures): Not Applicable
Data Reviewed
Review of Other/Old Records Reveals: Labs, Records, Testing and Discharge Summary
Update Note
Update Note:
Patient had good urine output with a Chanel change. Feels much better. Stable. Likely chronically contaminated urine. Will continue Cipro however. Rectal exam with soft stool in the rectum. Will hold on Chanel at this time
ED Attending Note
-
Portions of this chart may have been created with voice recognition software.� Occasional wrong word or��sound alike� substitutions may have occurred due to the inherent limitations of voice recognition software.
Discharge Plan
Departure
Patient Disposition: Home (Routine Discharge)
Date of Disposition: 01/30/25
Time of Disposition: 11:34
Patient with high blood pressure during this ER visit?: Yes
Discharge Problem:
Bladder spasms/pelvic pain, Suspect secondary to partially occluded
Instructions: Constipation, Adult (DC), How to Care for Your Chanel Catheter, Male
Prescriptions:
No Action
memantine 10 MG tablet
10 mg PO BID
Patient Comments:
08/15/2024, pt. crushes these tablets.
cranberry 500 mg Capsule
1,500 mg PO NOON
Patient Comments:
08/15/2024, gummies.
ascorbic acid (vitamin C) [Vitamin C] 500 mg Tablet,Chewable
1 g PO DAILY
Visbiome 112.5 billion cell Capsule
1 cap PO DAILY
d-mannose 500 mg Capsule
500 mg PO DAILY
Metamucil Packet
1 packet PO DAILY PRN (Reason: constipation)
methenamine hippurate 1 gram Tablet
1 g PO BID
quetiapine [Seroquel] 50 mg Tablet
50 mg PO DAILY
quetiapine [Seroquel] 50 mg Tablet
50 mg PO HS
cholecalciferol (vitamin D3) 50 mcg (2,000 unit) Tablet,Chewable
50 mcg PO DAILY
Referrals:
Francisco Ibanez MD [Family Provider] -
Activity Restrictions/Additional Instructions:
Follow-up closely with your urologist
Continue the Cipro
Return sooner with increased pain blocked Chanel fever or any other concerning symptoms
Interventions
Interventions:
*Risk Screen - Suicide Last Done: 01/30/25 05:43
*General Assessment Last Done: 01/30/25 05:43
*Neglect/Abuse Screening Last Done: 01/30/25 05:43
*ED- Fall Risk Assessment Last Done: 01/30/25 05:43
*ED COVID-19 Vaccine History Last Done: 01/30/25 05:43
[facility]-[place] Assessment Last Done: 01/30/25 05:57
Discharge Date and Time
Print Language: ANDORRAN
[2025-01-30 06:48] LABS: % Basophils 0.5 % (0-2); % Eosinophils 3.2 % (0-6); % Immature Granulocytes 0.4 % (0-0.5); % Lymphocytes 17.2 % (20.5-51.1); % Monocytes 6.1 % (1.7-9.3); % Neutrophils 72.6 % (42.2-75.2); Absolute Basophils 0.1 10^3/uL (0-0.2); Absolute Eosinophils 0.4 10^3/uL (0-0.7); Absolute Monocytes 0.7 10^3/uL (0.1-0.6); Absolute Neutrophils 8.3 10^3/uL (1.4-6.5); Hematocrit 46.2 % (39.0-52.0); Hemoglobin 15.7 g/dL (13.0-18.0); Mean Corpuscular Hgb 30.5 pg (27.0-31.0); Mean Corpuscular Volume 89.7 fL (80.0-94.0); Mean Platelet Volume 10.2 fL (7.4-10.4); Nucleated Red Blood Cells % 0 % (-); Platelet Count 248 10^3/uL (130-400); Red Blood Cell Count 5.15 10^6/uL (4.70-6.10); Red Cell Dist. Width 12.7 % (11.5-14.5); White Blood Cell Count 11.4 10^3/uL (4.8-10.8)
[2025-01-30] MEDS: NSS 500 IV (06:49)
[2025-01-30 07:23] LABS: ALT (SGPT) 30 U/L (0-50); AST (SGOT) 20 U/L (17-59); Albumin 3.7 g/dl (3.5-5.0); Alkaline Phosphatase 98 U/L (38-126); Blood Urea Nitrogen 18 mg/dl (9-20); Calcium 9.1 mg/dl (8.4-10.2); Carbon Dioxide 26 mmol/L (22-30); Chloride 108 mmol/L (98-107); Glucose 116 mg/dl (70-99); Lipase 117 U/L (23-300); Potassium 4.5 mmol/L (3.5-5.1); Sodium 142 mmol/L (135-145); Total Bilirubin 0.6 mg/dl (0.2-1.3); Total Protein 6.7 g/dl (6.3-8.2); eGFR > 60.00
--- NOTE | 2025-01-30 09:28 | EDRN ---
Dr. Clay currently at the pts bedside
--- NOTE | 2025-01-30 10:04 | EDRN ---
pre existing 16 georgian indwelling urinary catheter removed per Dr. Obed nicholas
[2025-01-30 10:34] LABS: Urine Albumin 1+ (Neg - Trace); Urine Bilirubin Negative (Negative); Urine Character Clear (Clear); Urine Glucose Negative (Negative); Urine Ketone Negative (Negative); Urine Leukocyte 1+ (Negative); Urine Nitrite Positive (Negative); Urine Occult Blood 3+ (Negative); Urine Urobilinogen 1+ (Neg - 1+)
[2025-01-30 10:38] LABS: Urine Color Orange
--- NOTE | 2025-01-30 10:40 | CM ---
CM updated [facility] with plan for DC from ED. CM sent updated referral.
[2025-01-30 10:58] LABS: Urine Amorphous Seen; Urine Squamous Cell 0-2 /LPF (Few)
[2025-01-30 11:01] LABS: Urine Bacteria Moderate (Negative); Urine Red Blood Cell 0-2 /HPF (0-2)
== END 2025-01-30 14:48 | disposition home or self-care (01) ==
LOC: EMR 05:40
PROVIDERS: EMERGENCY PHYSICIAN Emergency Medicine; FAMILY PHYSICIAN Internal Medicine
DX: N32.89 Other specified disorders of bladder (principal); R10.2 Pelvic and perineal pain; F41.9 Anxiety disorder, unspecified; F02.80 Dementia in other diseases classified elsewhere, unspecified severity, without behavioral disturbance, psychotic disturbance, mood disturbance, and anxiety; G30.9 Alzheimer's disease, unspecified; I25.10 Atherosclerotic heart disease of native coronary artery without angina pectoris; N40.1 Benign prostatic hyperplasia with lower urinary tract symptoms; Z85.828 Personal history of other malignant neoplasm of skin; Z87.440 Personal history of urinary (tract) infections; Z90.79 Acquired absence of other genital organ(s)
CPT/HCPCS: 99284; 51702; 96360; 96361; 74177; 80053; 81003; 81015; 83690; 85025; 87086; Q9967

== ENCOUNTER 2025-10-31 17:05 | Inpatient (IN) | payer MEDICARE, OTHER, SELFPAY ==
[2025-10-31] VITALS (7 sets, daily range): BP systolic 107–134; BP diastolic 55–98; BMI 28.1; BMI 27.4
[2025-10-31] MEDS: TYLENOL/FEVERALL 650 MG RECTAL (14:54)
--- NOTE | 2025-10-31 15:17 | ED.GENMED ---
History of Present Illness
General
Chief Complaint: Change in Mental Status
Source: spouse
Exam Limitations: clinical condition
Time Seen by Provider: 10/31/25 15:08
History of Present Illness
History of Present Illness:
See MDM
Past History
Past History
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
words), UTI, Pseudomonas in the urine, BPH)
ED Past Surgical History: None, Orthopedic (meniscus repair) and Other (anal fissure repair)
Social History
Tobacco: Non-smoker
Alcohol: None
Drug: None
Personal:
Living: with family
Employment: Retired
Phy Exam
Physical Exam
Physical Exam:
See MDM
Sepsis
Sepsis Screening
Sepsis Assessment: Sepsis Ruled Out
Sepsis Screen
Sepsis Screen: Sepsis Ruled Out
Date: 10/31/25
Time: 16:10
Course
Orders/Labs/Results
Orders:
Orders
10/31/25 14:49
COVID-19 Antigen Urgent
Source: Nasal Swab
Complete Blood Count/With Diff Urgent
Comprehensive Metabolic Panel Urgent
Lactic Acid Q4H
Comment: ON ICE, CANCEL 2ND ORDER IF FIRST LACTIC ACID LEVEL <2
Urinalysis Reflex To Culture Urgent
Date Specimen was Collected: 10/31/25
Time Specimen was Collected: 14:46
Urine Microscopic Reflex Cult Urgent
Blood Culture Q20M
CHARANJIT Source: Blood/Venous
Specimen Description:
Comment: Urgent from separate sites. If patient screens positive for possible sepsis
Influenza A+B Rapid Molecular Urgent
CHARANJIT Source: Nasal Swab
Specimen Description:
Urine Culture Urgent
CHARANJIT Source: U
Specimen Description:
Obtained by: Random
Date Specimen was Collected: 10/31/25
Time Specimen was Collected: 14:46
10/31/25 14:52
Acetaminophen [Tylenol/Feverall] 650 mg .ROUTE .STK-MED ONE
10/31/25 14:53
Acetaminophen [Tylenol/Feverall] 650 mg RECTAL NOW STA
10/31/25 15:16
CR Chest Portable - 1 View Urgent
Comment:
Reason For Exam: fever, altered
Reason Study Needs to be Portable: Patient Unstable
10/31/25 15:44
Blood Culture Q20M
CHARANJIT Source: Blood/Venous
Specimen Description:
Comment: Urgent from separate sites. If patient screens positive for possible sepsis
10/31/25 15:59
Meropenem [Merrem] 1,000 mg IV NOW STA
Abnormal Lab Results
10/31/25
14:49
WBC 21.4 H 10^3/uL
(4.8-10.8)
MPV 10.5 H fL
(7.4-10.4)
Abs Immat Gran (auto) 0.2 H 10^3/uL
(0-0.05)
Absolute Neuts (auto) 18.5 H 10^3/uL
(1.4-6.5)
Absolute Monos (auto) 1.5 H 10^3/uL
(0.1-0.6)
Immature Gran % 1.0 H %
(0-0.5)
Neutrophils % 86.3 H %
(42.2-75.2)
Lymphocytes % 5.4 L %
(20.5-51.1)
Glucose 102 H mg/dl
(70-99)
Ur Occult Blood Reflex 4+ A
(Negative)
Urine Nitrite (Reflex) Positive A
(Negative)
Leukocyte Esterase Rfl 3+ A
(Negative)
Urine RBC 11-15 A /HPF
(0-2)
Urine WBC (Reflex) >100 A /HPF
(0-5)
Urine Bacteria (Reflex) Moderate A
(Negative)
Urine Albumin (Reflex) 3+ A
(Neg - Trace)
10/31/25 14:49
10/31/25 14:49
Vital Signs
Initial and Last Documented VS:
Initial Vital Signs
Pulse Resp BP Pulse Ox
98 18 125/65 95
10/31/25 14:38 10/31/25 14:38 10/31/25 14:38 10/31/25 14:38
Last Documented Vital Signs
Temp Pulse Resp BP Pulse Ox
99.9 F 98 18 125/65 95
10/31/25 15:48 10/31/25 14:38 10/31/25 14:38 10/31/25 14:38 10/31/25 15:19
MDM/Problems Addressed
Differential Diagnosis Includes:
Note:
CHIEF COMPLAINT(S)
Altered mental status.
HISTORY OF PRESENT ILLNESS
The patient is a 75-year-old male who presented to the emergency department for evaluation of altered mental status. According to the spouse at the bedside, the patient exhibited agitation and confusion starting yesterday. The patient has a history
of an indwelling Chanel catheter, which was changed last week. During that time, the patient completed a short course of ciprofloxacin. The spouse expressed concern due to the urine appearing cloudy. Upon arrival, the patient had a fever, treated
with rectal acetaminophen. We discussed evaluating for alternative sources of fever, such as COVID-19, influenza, and pneumonia. The patients abdomen was assessed as soft and non-tender.
SOCIAL DETERMINANTS OF HEALTH
The patients spouse is actively involved in the patients care, indicating family support is present.
PHYSICAL EXAM
General: Appears confused and mildly agitated
Skin: Warm, dry.
Head: Normocephalic, atraumatic
Neck: Appears supple, trachea midline.
Eyes, Ears, Nose, Mouth, and Throat: Dry mucous membranes
Cardiovascular: No signs of cyanosis
Respiratory: Respirations are non-labored.
Abdomen: Non-distended. Soft and nontender
Musculoskeletal: No deformities
Neurological: No focal neurological deficit observed.
Psychiatric: Appears confused
PLAN
- Evaluate for possible sources of infection: COVID-19, influenza, pneumonia.
- If workup is negative, treat for presumed urinary tract infection (UTI).
- Admit due to altered mental status.
DIFFERENTIAL DIAGNOSIS
The Differential Diagnosis includes, in no particular order and is not limited to:
- Urinary tract infection (UTI)
- Pneumonia
- COVID-19
- Influenza
- Delirium
- Other sources of infection
- Medication side effects
- Acute cerebrovascular accident
- Metabolic disturbances
- Dehydration
SUMMARY OF ENCOUNTER
The patient, a 75-year-old male, was seen in the emergency department for altered mental status. The spouse reported onset of agitation and confusion since yesterday. The patient has a history of an indwelling Chanel catheter, which was recently
changed, with a course of ciprofloxacin completed. Urine appears cloudy, and fever was present upon arrival. Fever was treated with rectal acetaminophen. The plan involved investigating possible sources of infection and addressing a presumed UTI if
initial workup is negative. Due to altered mental status, admission was deemed necessary.
DISPOSITION
Admit
EMERGENCY TREATMENTS ADMINISTERED
Rectal acetaminophen for fever.
MEDICAL DECISION MAKING
- Number and Complexity of Problems Addressed: Chronic conditions affecting care [Urinary tract infection]
- Data:
Category 1: Tests and documents
- Lab tests and imaging considered to evaluate for infection
Category 2: Assessment requiring an independent historian(s)
- Clinical information obtained from the spouse
Category 3: Discussion of management or test interpretation
- Management plan for addressing potential infections discussed with healthcare team
- Risk: Consideration of admission determined by the complexity and severity of symptoms presenting with altered mental status.
DIAGNOSIS
- Altered mental status (R41.82)
- Suspected urinary tract infection (N39.0)
SUMMARY OF ENCOUNTER
The patient presented with a fever and altered mental status. The source of the symptoms is likely a urinary tract infection, as indicated by the recent history of an indwelling Chanel catheter and cloudy urine. In the emergency department, the
patient was assessed for other sources of fever, including COVID-19, influenza, and pneumonia. All these sources were ruled out as the chest X-ray appeared clear, and both COVID-19 and influenza tests were negative. A decision was made to treat the
suspected urinary tract infection covering Pseudomonas due to prior susceptibilities and medication tolerances.
DISPOSITION
Admit
ASSESSMENT
The patient is likely experiencing a urinary tract infection, suspected as the source of altered mental status and fever.
EMERGENCY TREATMENTS ADMINISTERED
Dosimir-penum (likely intended to represent a specific treatment option for Pseudomonas, given the patients history of medication allergies).
PLAN
The treatment plan involves managing the suspected urinary tract infection with Dosimir-penum due to known tolerances in the past. The patient will be admitted for further monitoring and management due to altered mental status.
INDEPENDENT REVIEW OF LABS AND INTERPRETATION OF TESTS
- My independent review indicates that lactic acid levels are within normal limits.
MEDICATION RECONCILIATION
- Dosimir-penum administered in the emergency department for suspected urinary tract infection.
MEDICAL DECISION MAKING
- Number and Complexity of Problems Addressed: Chronic conditions affecting care [Urinary tract infection]
- Data:
- Category 1: Tests and documents reviewed include negative COVID-19 and influenza tests and a clear chest X-ray.
- Category 2: Assessment required input from an independent historian, notably the patients spouse, who provided valuable clinical history.
- Risk: Consideration of hospital admission was determined necessary due to the patients altered mental status and the complexity of symptoms. Prescription medication was administered, with Dosimir-penum selected due to its prior compatibility with
the patient�s medicine allergies.
DIAGNOSIS
- Altered mental status (R41.82)
- Suspected urinary tract infection (N39.0)
*Pulse Oximetry
SaO2: 95
Oxygen Mode of Delivery: Room air
Patient hypoxic: no
*Critical Care Note
Total Time (30-74mins, 75-104mins- exclusive of procedures): Not Applicable
ED Attending Note
-
Portions of this chart may have been created with voice recognition software.� Occasional wrong word or��sound alike� substitutions may have occurred due to the inherent limitations of voice recognition software.
Discharge Plan
Departure
Patient Disposition: Admit
Date of Disposition: 10/31/25
Time of Disposition: 16:07
Admit to: Med/Surg
Presentation/result/management discussed w/ accepting MD/DO: Hospitalist
Discharge Problem:
Acute UTI, Altered mental status
Prescriptions:
No Action
memantine 10 MG tablet
10 mg PO BID
Patient Comments:
08/15/2024, pt. crushes these tablets.
cranberry 500 mg Capsule
1,500 mg PO NOON
Patient Comments:
08/15/2024, gummies.
ascorbic acid (vitamin C) [Vitamin C] 500 mg Tablet,Chewable
1 g PO DAILY
Visbiome 112.5 billion cell Capsule
1 cap PO DAILY
d-mannose 500 mg Capsule
500 mg PO DAILY
Metamucil Packet
1 packet PO DAILY PRN (Reason: constipation)
methenamine hippurate 1 gram Tablet
1 g PO BID
quetiapine [Seroquel] 50 mg Tablet
50 mg PO DAILY
quetiapine [Seroquel] 50 mg Tablet
50 mg PO HS
cholecalciferol (vitamin D3) 50 mcg (2,000 unit) Tablet,Chewable
50 mcg PO DAILY
Referrals:
Francisco Ibanez MD [Family Provider, Internal Medicine]
Interventions
Interventions:
*General Assessment Last Done: 10/31/25 14:38
*Neglect/Abuse Screening Last Done: 10/31/25 14:38
*ED COVID-19 Vaccine History Last Done: 10/31/25 15:46
*ED Influenza Vaccine History Last Done: 10/31/25 15:46
[facility] Fall Risk Assessment Tool Last Done: 10/31/25 15:45
ED- Pulmonary Assessment Last Done: 10/31/25 14:44
ED- Neurological Assessment Last Done: 10/31/25 14:44
ED- Cardiac Assessment Last Done: 10/31/25 14:44
ED Swallowing Screen Last Done: 10/31/25 14:44
Discharge Date and Time
Print Language: LITHUANIAN
[2025-10-31 15:31] LABS: Hematocrit 45.0 % (39.0-52.0); Hemoglobin 15.5 g/dL (13.0-18.0); Mean Corp Hgb Conc. 34.4 g/dL (33.0-37.0); Mean Corpuscular Volume 88.4 fL (80.0-94.0); Nucleated Red Blood Cells % 0 % (-); Platelet Count 271 10^3/uL (130-400); Red Cell Dist. Width 12.8 % (11.5-14.5); Urine Character Mucous (Clear)
[2025-10-31 15:45] LABS: COVID-19 Antigen Negative (Negative)
[2025-10-31 15:51] LABS: ALT (SGPT) 18 U/L (0-50); AST (SGOT) 20 U/L (17-59); Albumin 4.0 g/dl (3.5-5.0); Alkaline Phosphatase 95 U/L (38-126); Blood Urea Nitrogen 17 mg/dl (9-20); Calcium 8.7 mg/dl (8.4-10.2); Carbon Dioxide 24 mmol/L (22-30); Chloride 100 mmol/L (98-107); Estimated Creatinine Clearance 57 ml/min; Glucose 102 mg/dl (70-99); Potassium 4.4 mmol/L (3.5-5.1); Sodium 135 mmol/L (135-145); Total Protein 7.2 g/dl (6.3-8.2); eGFR > 60.00
[2025-10-31 15:54] LABS: Urine Squamous Cell 0-2 /LPF (Few); Urine White Cell >100 /HPF (0-5)
[2025-10-31] MEDS: MERREM 1000 MG IV (16:22)
--- NOTE | 2025-10-31 16:29 | PHANOTE ---
med rec tech: says that pt takes all meds crushed in applesauce
--- NOTE | 2025-10-31 16:39 | HPS.HSE ---
Family Physician
-
Family Physician: Francisco Ibanez
Chief Complaint
-
urinary symptoms, altered mental status
History of Present Illness
75-year-old male past medical history of neurogenic bladder chronic Chanel catheter, BPH status post TURP, dementia, CKD 2, chronic tremor, reactive airway disease, posterior cortical atrophy presenting with altered mental status, bladder discomfort,
cloudy urine, weakness starting today. Chanel catheter was changed 3 days ago. No nausea or vomiting or diarrhea. No cough, sore throat, shortness of breath or chest pain.
Patient does not smoke or drink alcohol.
Medical History
Past Medical History
Past Medical History: Reports Other (neurogenic bladder chronic Chanel catheter, BPH status post TURP, dementia, CKD 2, chronic tremor, reactive airway disease, posterior cortical atrophy)
Past Surgical History: Reports None
Social History
Tobacco: Non-smoker
Alcohol: None
Drug: None
Family History
Family History: Not pertinent
Allergies / Home Medications
Allergies reflects when Allergies were last updated in [employer].
Home Medications with original date entered in [employer]
Allergy/Medication List:
Allergies
Allergy/AdvReac Type Severity Reaction Status Date / Time
cefepime Allergy CHANGE IN Verified 10/31/25 15:46
MENTAL
STATUS
piperacillin (From Zosyn) Allergy SEVERE Verified 10/31/25 15:46
DIARRHEA
tazobactam (From Zosyn) Allergy SEVERE Verified 10/31/25 15:46
DIARRHEA
diazepam AdvReac Intermediate BENZODIAZEP Verified 10/31/25 15:46
DEB
sertraline (From Zoloft) AdvReac Mild night zhang Verified 10/31/25 15:46
tamsulosin (From Flomax) AdvReac Mild Nightmares Verified 10/31/25 15:46
Home Medications
memantine 10 mg tablet 10 mg PO BID cognition/memory 09/09/20
d-mannose 500 mg capsule 500 mg PO DAILY Supplement 08/15/24
methenamine hippurate 1 gram tablet 1 g PO BID 01/30/25
psyllium 1 packet PO DAILY PRN constipation 01/30/25
hydrocortisone 2.5 % topical cream 1 applic topical DAILYPRN PRN rash 10/31/25
quetiapine 100 mg tablet 100 mg PO HS 10/31/25
quetiapine 25 mg tablet 25 mg PO DAILY 10/31/25
quetiapine 25 mg tablet 25 mg PO QPMPRN PRN anxiety 10/31/25
Review of Systems
-
History Source: Patient
A 12 point ROS was completed and negative except as noted: Yes
Constitutional: Reports No Symptoms
EENT: Reports No Symptoms
Respiratory: Reports No Symptoms
Cardiac: Reports No Symptoms
Abdomen/GI: Reports No Symptoms
: Reports See HPI
Musculoskeletal: Reports No Symptoms
Skin: Reports No Symptoms
Neurological: Reports No Symptoms
Endocrine: Reports No Symptoms
Hematologic/Lymphatic: Reports No Symptoms
Psych: Reports No Symptoms
Physical Exam
Vital Signs
Vital Signs
Temp Pulse Resp BP Pulse Ox
99.9 F 98 18 125/65 95
10/31/25 15:48 10/31/25 14:38 10/31/25 14:38 10/31/25 14:38 10/31/25 15:19
Physical Exam
General: Well Developed, Well Nourished and No Apparent Distress
HEENT: NormoCephalic, Moist mucous membranes and Atraumatic
Respiratory: Clear
Cardiac: S1/S2 and Regular Rhythm; No Murmur or Rub
GI: Soft, Non Tender, Non Distended and Normal Bowel Sounds; No Organomegaly
Rectal: Deferred by Provider
Musculoskeletal: No Clubbing, No Cyanosis and No Edema
Skin: No Rash
Neuro: Nonfocal/grossly intact
Laboratory Results
-
10/31/25 14:49
10/31/25 14:49
Laboratory Results
Lactic Acid Cancelled 10/31/25 19:00
Total Bilirubin 1.1 mg/dl (0.2-1.3) 10/31/25 14:49
AST 20 U/L (17-59) 10/31/25 14:49
ALT 18 U/L (0-50) 10/31/25 14:49
Alkaline Phosphatase 95 U/L (38-126) 10/31/25 14:49
Data Reviewed
-
Lab Data: Labs Reviewed by me
Old Records: Reviewed
Impression/Plan
-
IMPRESSION:
PLAN:
# Sepsis (metabolic encephalopathy/fever) secondary to catheter associated UTI
-Urinalysis shows greater than 100 WBC, +3 leukocyte esterase, positive nitrates,
-Chest x-ray does not appear to show any abnormality, report pending
- Urine culture
- Blood cultures
- IV fluids
- Meropenem given multiple antibiotic allergies, history of Pseudomonas/Enterococcus UTIs
Neurogenic bladder with chronic Chanel catheter
- Chanel catheter change 3 days ago
BPH status post TURP
Dementia
- Continue memantine, Seroquel
CKD2
Chronic tremor
Reactive airway disease
DNR/DNI
DVT prophylaxis�heparin
Regular diet
--- NOTE | 2025-10-31 17:07 | EDCM ---
Reviewed chart and met with bedside in ED. Lives with his and daughter in 2 with ramp access, home has elevator.
Requires assistance with ADLs, personal care, does not ambulate but can pivot from Lift chair to wheelchair. His and daughter are caregivers.
PMH includes Posterior cortical atrophy, skin cancer, anxiety, UTI and BPH.
Pt has chronic boss catheter sin March 2024, changed 3 weeks ago by [facility] nurse.
Pt follows with Palliative Care, current with [facility].
Confirms prescription coverage, pt has but does not get services through [place].
PCP: Francisco Ibanez
[facility]
Anticipate discharge home with [facility], pt will need ambulance transport arranged for discharge.
--- NOTE | 2025-10-31 18:40 | PTCARENOTE ---
Pt arrived from ED via stretcher, disoriented with occasional garbled/slurred speech. at the bedside. vss. Pt incontinent smal amount of stool. Chanel in place. bed alarm in place. call savage within reach. vss.
[2025-10-31] MEDS: NSS 1000 IV (20:10)
[2025-10-31] MEDS: HEPARIN 5000 UNITS SC (20:14)
[2025-10-31] MEDS: SEROQUEL 100 MG PO (20:20)
[2025-10-31] MEDS: NAMENDA 10 MG PO (20:21)
[2025-10-31] MEDS: MERREM 500 MG IV (21:53)
[2025-10-31] MEDS: STERILE WATER FOR INJECTION 10 ML IV (21:55)
[2025-11-01] MEDS: MERREM 500 MG IV ×4 (04:22→20:56)
[2025-11-01] MEDS: STERILE WATER FOR INJECTION 10 ML IV ×4 (04:22→20:56)
[2025-11-01] MEDS: NSS 1000 IV ×2 (05:45→16:44)
[2025-11-01] MEDS: TYLENOL 650 MG PO (05:50)
[2025-11-01 07:10] VITALS: BP 109/49
--- NOTE | 2025-11-01 08:43 | W.PN.HOSP.TC ---
Today's Communication/Plan
-
Await cultures
Continue antibiotics
Add Pyridium
Assessment / Plan
Assessment / Plan
Gen-awake but not alert, NAD
HEENT-NC, AT, anicteric, clear oral mm
Neck-supple
CV-reg, no M, +S1/S2
Lungs-clear B/L
Abd-soft, NT, ND
Ext-no edema
Musculoskeletal-no cyanosis, clubbing
Skin-warm and dry
Neuro-grossly non-focal
Psych-calm, cooperative
Sepsis due to catheter associated UTI -hemodynamically stable. Leukocytosis on admission noted, CBC pending for today. Febrile on admission, afebrile now. Await cultures. Continue empiric IV meropenem.
Acute metabolic encephalopathy due to sepsis -mental status changes started Sunday night according to .
Chronic neurogenic bladder/chronic Chanel catheter -Chanel catheter last changed 10/28. Received empiric ciprofloxacin the day before, the day of, and day after Chanel catheter change. states he gets his catheter exchanged every 3 weeks.
BPH -s/p TURP.
Dementia/posterior cortical atrophy -with left-sided weakness, sensory deficits, visual deterioration.
CKD 2 -stable.
Chronic tremor
Reactive airway disease
DNR
Updated at the bedside.
Anticipated Discharge: > 48 hours
Subjective/Interval History
-
Date of Service: November 01, 2025
Patient seen and examined. Complaining of bladder discomfort.
Objective Data
-
Labs:
Laboratory Results
11/01/25
06:00
WBC Pending
Hgb Pending
Hct Pending
Plt Count Pending
Sodium Pending
Potassium Pending
Chloride Pending
Carbon Dioxide Pending
BUN Pending
Creatinine Pending
Glucose Pending
Calcium Pending
Total Bilirubin Pending
AST Pending
ALT Pending
Alkaline Phosphatase Pending
Vital Signs:
Vital Signs
Temp Pulse Resp BP Pulse Ox
98.2 F 88 16 109/49 94
11/01/25 07:10 11/01/25 07:10 11/01/25 07:10 11/01/25 07:10 11/01/25 07:10
I&O
10/31/25 11/01/25 11/02/25
06:59 06:59 06:59
Intake Total 240 / 240
Output Total 900 / 900
Balance -660 / -660
Review of Systems
-
Unable to obtain full review of systems at this time due to: Acuity
History Source: Patient
All other systems: Reviewed and negative
[2025-11-01] MEDS: HEPARIN 5000 UNITS SC ×2 (09:00→20:52)
[2025-11-01] MEDS: SEROQUEL 25 MG PO ×2 (09:01→22:53)
[2025-11-01] MEDS: NAMENDA 10 MG PO ×2 (09:01→20:52)
[2025-11-01 10:01] LABS: Hematocrit 38.5 % (39.0-52.0); Hemoglobin 13.3 g/dL (13.0-18.0); Mean Corp Hgb Conc. 34.5 g/dL (33.0-37.0); Mean Corpuscular Volume 89.3 fL (80.0-94.0); Nucleated Red Blood Cells % 0 % (-); Platelet Count 228 10^3/uL (130-400); Red Cell Dist. Width 12.8 % (11.5-14.5)
[2025-11-01 10:25] LABS: ALT (SGPT) 14 U/L (0-50); AST (SGOT) 16 U/L (17-59); Albumin 3.1 g/dl (3.5-5.0); Alkaline Phosphatase 86 U/L (38-126); Blood Urea Nitrogen 16 mg/dl (9-20); Calcium 8.0 mg/dl (8.4-10.2); Carbon Dioxide 19 mmol/L (22-30); Chloride 105 mmol/L (98-107); Estimated Creatinine Clearance 52 ml/min; Glucose 119 mg/dl (70-99); Potassium 4.0 mmol/L (3.5-5.1); Sodium 133 mmol/L (135-145); Total Protein 6.1 g/dl (6.3-8.2); eGFR 56.58
[2025-11-01 15:05] VITALS: BP 134/59
[2025-11-01] MEDS: SEROQUEL 100 MG PO (20:52)
[2025-11-01 23:47] VITALS: BP 105/64
[2025-11-02] MEDS: NSS 1000 IV (02:11)
[2025-11-02] MEDS: STERILE WATER FOR INJECTION 10 ML IV ×2 (04:11→09:35)
[2025-11-02] MEDS: MERREM 500 MG IV ×2 (04:11→09:35)
[2025-11-02 07:56] VITALS: BP 114/71
[2025-11-02 09:29] LABS: Hematocrit 38.4 % (39.0-52.0); Hemoglobin 12.9 g/dL (13.0-18.0); Mean Corp Hgb Conc. 33.6 g/dL (33.0-37.0); Mean Corpuscular Volume 88.7 fL (80.0-94.0); Nucleated Red Blood Cells % 0 % (-); Platelet Count 226 10^3/uL (130-400); Red Cell Dist. Width 12.7 % (11.5-14.5)
[2025-11-02] MEDS: HEPARIN 5000 UNITS SC ×2 (09:35→20:47)
[2025-11-02] MEDS: SEROQUEL 25 MG PO ×2 (09:35→22:47)
[2025-11-02] MEDS: NAMENDA 10 MG PO ×2 (09:35→20:44)
[2025-11-02 09:51] LABS: Blood Urea Nitrogen 14 mg/dl (9-20); Calcium 7.9 mg/dl (8.4-10.2); Carbon Dioxide 21 mmol/L (22-30); Chloride 109 mmol/L (98-107); Estimated Creatinine Clearance 68 ml/min; Glucose 93 mg/dl (70-99); Potassium 4.2 mmol/L (3.5-5.1); Sodium 135 mmol/L (135-145); eGFR > 60.00
--- NOTE | 2025-11-02 10:15 | PTOTSP ---
Speech Language Pathology
Pt seen for clinical bedside swallow evaluation. Pt is a full feed at baseline. P.O. trials of puree and thin liquids via cup provided by . Prolonged bolus formation and A-P transit consistently noted. No overt signs of aspiration.
reported pt is able to chew some softer items, but he is not currently alert enough for this. Deferred regular or soft solids this date. CXR clear on admission with no hx of PNA. Instrumental swallowing assessment does not appear indicated at
this time.
Recommend:
(1) Downgrade to IDDSI Level 4 (Puree) and Thin liquids. Will consider upgrade once more alert
(2) Aspiration precautions: full assist, slow rate, single sips, small bites, check for pocketing post P.O. intake
(3) Meds crushed in puree
(4) ENTREPRENEURSHIP PROGRAM DIRECTOR to continue to follow
--- NOTE | 2025-11-02 13:02 | W.PN.HOSP.TC ---
Today's Communication/Plan
-
switch to Cefdinir
dc planning
Assessment / Plan
Assessment / Plan
Assessment:
Sepsis (encephalopathy in setting of catheter associated UTI) - present on arrival
- Urine culture with multi-drug resistant E. coli
- stop Meropenem; switch to Cefdinir x 14 total days
- monitor mentation
Chronic neurogenic bladder/chronic Chanel catheter
- Chanel catheter last changed 10/28. Received empiric ciprofloxacin the day before, the day of, and day after Chanel catheter change. states he gets his catheter exchanged every 3 weeks.
BPH - s/p TURP.
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
CKD 2 - stable.
Chronic tremor
Reactive airway disease
DVT ppx: [place] Heparin
Code: DNR/DNI
Anticipated Discharge: Within 24 hours
Subjective/Interval History
-
Date of Service: November 02, 2025
no overnight events
Objective Data
-
Labs:
Laboratory Results
11/02/25
08:45
WBC 9.6
Hgb 12.9 L
Hct 38.4 L
Plt Count 226
Sodium 135
Potassium 4.2
Chloride 109 H
Carbon Dioxide 21 L
BUN 14
Creatinine 1.0
Glucose 93
Calcium 7.9 L
Vital Signs:
Vital Signs
Temp Pulse Resp BP Pulse Ox
98.5 F 85 18 114/71 94
11/02/25 07:56 11/02/25 07:56 11/02/25 07:56 11/02/25 07:56 11/02/25 07:56
I&O
11/01/25 11/02/25 11/03/25
06:59 06:59 06:59
Intake Total 240 / 240 120 / 120
Output Total 900 / 900 800 / 800
Balance -660 / -660 -680 / -680
Physical Exam
-
General: No Apparent Distress
HEENT: Normocephalic and Atraumatic
Respiratory: Negative Wheezes
Cardiac: Regular Rhythm and S1/S2
Genito-urinary: No Costovertebral Tender
Neuro: Other (asleep)
Psych: Calm
Data Reviewed
-
Total Time Spent with Patient (in minutes): 42
Labs: Labs Reviewed by me
--- NOTE | 2025-11-02 14:25 | WOUNDNOTE ---
[facility] RN note: Patient admitted with sepsis, catheter associated UTI. Patient's Chanel was changed about 3 days prior to admission. Patient lives with his and has a caregiver named Iris. He sleeps in a motorized recliner chair that has a sleep
mode which reclines patient. They have an alternated overlay for the recliner chair. Family has used [employer] in home wound evaluation.
See H&P for complete history.
PMH: neurogenic bladder, Chanel, BPH, TURP, chronic tremors, reactive airway disease, posterior cortical atrophy, ambulation dysfunction.
Wound Location and type/assessment: Patient admitted with: blanchable red sacral/buttocks with chafed skin and linear stage 2 L sacral/buttocks pressure injury. Penis tip MASD.
Appetite: fair-good.
Pressure redistribution devices in place: [employer] Accumax. Patient cannot turn self in bed. He lifts his feet off bed sometimes.
Plan: Silicone border foam changed on sacral/buttocks. Static air overlay applied and patient turned to R semi side lying position with help from LANCE Molina. Recommended a bariatric air chair cushion if patient gets out of bed; discussed with LANCE Molina.
Will confirm orders with Dr. Merritt.
Care plan to be updated. Will sign off. Call if needed.
Recommend follow up with wound daycare worker as needed.
--- NOTE | 2025-11-02 14:41 | CM ---
CM reviewed pt with attending- ADC tomorrow
Bedside meeting with pt, spouse and private duty SAFETY CLOTHING AND EQUIPMENT DEVELOPER
Plan for home with [facility]- [facility] referral sent via [facility]
Pt will require BLS transport- address confirmed as correct on the chart
Spouse awaiting therapy evals- noting pt can stand/transfer/pivot at a multiperson assist
Hopeful pt can continue as such, may need SNF if unable to stand per spouse
CM to watch for therapy recs
IMM verbally reviewed, copy provided
Discharge Disposition-anticipate home with [facility]
[2025-11-02 15:02] VITALS: BP 135/64; PULSE 100
[2025-11-02 15:55] VITALS: BP 131/92
[2025-11-02] MEDS: SEROQUEL 100 MG PO (20:44)
[2025-11-02] MEDS: OMNICEF 300 MG PO (20:44)
[2025-11-02] MEDS: DESENEX/MITRAZOL/ZEASORB 1 APPLIC TOPICAL (20:47)
[2025-11-02 22:43] VITALS: BP 160/78
[2025-11-02] MEDS: TYLENOL 650 MG PO (22:46)
[2025-11-03 08:25] VITALS: BP 148/65
[2025-11-03] MEDS: HEPARIN 5000 UNITS SC (08:32)
[2025-11-03] MEDS: DESENEX/MITRAZOL/ZEASORB 1 APPLIC TOPICAL (08:32)
[2025-11-03] MEDS: NAMENDA 10 MG PO (08:32)
[2025-11-03] MEDS: OMNICEF 300 MG PO (08:32)
[2025-11-03] MEDS: SEROQUEL 25 MG PO (08:39)
[2025-11-03 09:29] LABS: Hematocrit 40.1 % (39.0-52.0); Hemoglobin 13.5 g/dL (13.0-18.0); Mean Corp Hgb Conc. 33.7 g/dL (33.0-37.0); Mean Corpuscular Volume 89.1 fL (80.0-94.0); Platelet Count 243 10^3/uL (130-400); Red Cell Dist. Width 12.7 % (11.5-14.5)
[2025-11-03 10:03] LABS: Blood Urea Nitrogen 13 mg/dl (9-20); Calcium 8.3 mg/dl (8.4-10.2); Carbon Dioxide 26 mmol/L (22-30); Chloride 107 mmol/L (98-107); Estimated Creatinine Clearance 68 ml/min; Glucose 107 mg/dl (70-99); Potassium 4.1 mmol/L (3.5-5.1); Sodium 137 mmol/L (135-145); eGFR > 60.00
--- NOTE | 2025-11-03 12:06 | CM ---
Addendum entered by [facility] 11/03/25 14:54:
DC paperwork unable to go through fax
Paperwork sent via [facility]
Addendum entered by [facility] 11/03/25 12:55:
1400 pickup, spouse aware
Addendum entered by [facility] 11/03/25 12:49:
Fax- [phone]
Original Note:
CM reviewed pt with attending- cleared for dc
Bedside meeting with pt and spouse
Plan for home with [facility] and ambulance
Medical necessity completed
Pt accepted for [facility] by [facility]
Discharge Disposition- home with [facility] via BLS
[facility] fax-
--- NOTE | 2025-11-03 12:09 | PN.CDI ---
CDI
- -
CDI:
Physician Documentation Request
Admit Date: 10/31/25 17:05
Dear Doctor,
Please review the following and provide your response in the progress notes.
Clinical Indicators:
Pt admitted for Sepsis due to catheter associated UTI
11/02 [facility] RN: ' Patient admitted with: blanchable red sacral/buttocks with chafed skin and linear stage 2 L sacral/buttocks pressure injury'
Physician documentation of the type and location of wounds is required for compliant documentation. Based on the above clinical findings and your assessment, please provide the following in your progress note:
1. Location of the ulcer/wound, including laterality.
2. Type (etiology) of ulcer/wound:
Stage 2 left sacral/buttock pressure injury POA
Left sacral/buttock non-pressure injury POA
Other
Use of terms such as suspected, likely, concern for, or probable (associated with a specific diagnosis that is being evaluated, monitored, or treated as if it exists) are acceptable and can be coded in the inpatient setting, when documented at the
time of discharge.
Thank you,
Karolina Nicholas RN, BSN
CDI Specialist
Graff Text
Please use your independent medical judgment in providing your response.
*Source: National Pressure Ulcer Advisory Panel (NPUAP)
--- NOTE | 2025-11-03 12:54 | W.PN.HOSP.TC ---
Today's Communication/Plan
-
dc home/VN Today
Assessment / Plan
Assessment / Plan
Assessment:
Sepsis (encephalopathy in setting of catheter associated UTI) - present on arrival
- Urine culture with multi-drug resistant E. coli
- stop Meropenem; switch to Cefdinir x 14 total days
- monitor mentation which has improved
Chronic neurogenic bladder/chronic Chanel catheter
- Chanel catheter last changed 10/28. Received empiric ciprofloxacin the day before, the day of, and day after Chanel catheter change. states he gets his catheter exchanged every 3 weeks.
BPH - s/p TURP.
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
CKD 2 - stable.
Chronic tremor
Reactive airway disease
stage 2 L sacral/buttocks pressure injury
DVT ppx: SC Heparin
Code: DNR/DNI
More than 30 minutes spent in discharge including
Final examination of the patient
Summarizing hospital stay
Instructions for continuing care to all relevant caregivers
Preparation of discharge records, prescriptions, and referral forms
Total time spent (in minutes): 41
Anticipated Discharge: Today
Subjective/Interval History
-
Date of Service: November 03, 2025
resting comfortably, no complaints at present
Objective Data
-
Labs:
Laboratory Results
11/03/25
09:04
WBC 5.5
Hgb 13.5
Hct 40.1
Plt Count 243
Sodium 137
Potassium 4.1
Chloride 107
Carbon Dioxide 26
BUN 13
Creatinine 1.0
Glucose 107 H
Calcium 8.3 L
Vital Signs:
Vital Signs
Temp Pulse Resp BP Pulse Ox
97.6 F 68 16 148/65 96
11/03/25 08:25 11/03/25 08:25 11/03/25 08:25 11/03/25 08:25 11/03/25 08:25
I&O
11/02/25 11/03/25 11/04/25
06:59 06:59 06:59
Intake Total 120 / 120 540 / 540
Output Total 800 / 800 1350 / 1350 950 / 950
Balance -680 / -680 -810 / -810 -950 / -950
Physical Exam
-
General: No Apparent Distress
HEENT: Normocephalic and Atraumatic
Respiratory: Negative Wheezes
Cardiac: Regular Rhythm and S1/S2
GI: Soft
Psych: Calm
Data Reviewed
-
Total Time Spent with Patient (in minutes): 41
Labs: Labs Reviewed by me
--- NOTE | 2025-11-03 12:56 | W.DCSUMMARY ---
Discharge Summary
Discharge Data
Date of Admission: 10/31/25
Date of Discharge: 11/03/25
-
Pending Results: No
Hospital Course
75 y/o M, hx of neurogenic bladder chronic Chanel catheter, BPH status post TURP, dementia, CKD 2, chronic tremor, reactive airway disease, posterior cortical atrophy presented to ER on 10/31 with change in mentation along with UTI symptoms (cloudy
urine, weakness, bladder discomfort) resulting in sepsis. The Chanel catheter was exchanged in the ER and patient was started on Meropenem given history of pseudomonas. Later his urine culture revealed E. Coli and he was transitioned to Cefdinir to
complete a 14 day course. He was able to return closer to his baseline mentation at the time of discharge. He was discharged to home with VN support on 11/03/25.
Discharge Plan
-
Patient Disposition: Home with Home Care
Discharge Diagnosis/Procedures: CAUTI/sepsis
Condition: Fair
Additional Diets: IDDSI 4 - puree/thins
Activity: As tolerated
Bathing Restrictions: None
Other Services: PT, OT and ST
Activity Restrictions/Additional Instructions:
Wound Care Instructions
Sacral/buttocks-clean with saline or mild soap and water, miconazole powder as needed for yeasty red skin followed by no sting barrier wipe or zinc barrier ointment, change every 3 days and as needed for loosened dressing. If foam ineffective, apply
miconazole powder and barrier ointment (i.e. A+D or Calazime ointment) twice a day instead (can cover with ABD pad for more protection).
Penis tip redness-miconazole powder followed by barrier ointment (i.e Calazime) twice a day.
Continue alternating air pad in recliner chair.
Elevate heels off surfaces with pillow/s.
Turning schedule
Follow up with wound health care analyst or at wound care center call for an appointment.
Referrals:
Francisco Ibanez MD [Family Provider, Internal Medicine] - in one week
Prescriptions:
New
phenazopyridine 200 mg Tablet
200 mg PO TIDPRN PRN (Reason: bladder pain) Qty: 20 0RF
cefdinir 300 mg Capsule
300 mg PO Q12 Qty: 22 0RF
Continued
memantine 10 MG tablet
10 mg PO BID
d-mannose 500 mg Capsule
500 mg PO DAILY
Metamucil Packet
1 packet PO DAILY PRN (Reason: constipation)
quetiapine 25 mg tablet
25 mg PO DAILY
quetiapine 25 mg tablet
25 mg PO QPMPRN PRN (Reason: anxiety)
quetiapine 100 mg tablet
100 mg PO HS
hydrocortisone 2.5 % cream
1 applic TOPICAL DAILYPRN PRN (Reason: rash)
Rx Instructions:
under arm and on torso
Held
methenamine hippurate 1 gram Tablet
1 g PO BID
Hold Instructions: resume after Cefdinir course completes
Discharge Orders:
Discharge Patient (As Directed); Ordered 11/03/25
Ordered By: John Merritt
Discharge Date and Time
Print Language: LAO
[2025-11-03 13:54] VITALS: BP 117/69
== END 2025-11-03 14:20 | disposition home health service (06) | DRG 698 ==
LOC: 2 NORTH 17:05
PROVIDERS: Emergency Medicine; Hospitalist; ADMITTING PHYSICIAN Hospitalist; ATTENDING PHYSICIAN Internal Medicine; EMERGENCY PHYSICIAN Student in an Organized Health Care Education/Training Program; FAMILY PHYSICIAN Internal Medicine
DX: T83.511A Infection and inflammatory reaction due to indwelling urethral catheter, initial encounter (principal); A41.51 Sepsis due to Escherichia coli [E. coli]; R65.20 Severe sepsis without septic shock; G93.41 Metabolic encephalopathy; F02.84 Dementia in other diseases classified elsewhere, unspecified severity, with anxiety; Z16.24 Resistance to multiple antibiotics; N39.0 Urinary tract infection, site not specified; N40.0 Benign prostatic hyperplasia without lower urinary tract symptoms; G30.9 Alzheimer's disease, unspecified; N31.9 Neuromuscular dysfunction of bladder, unspecified; N18.2 Chronic kidney disease, stage 2 (mild); J45.909 Unspecified asthma, uncomplicated; L89.322 Pressure ulcer of left buttock, stage 2; G31.9 Degenerative disease of nervous system, unspecified; Y84.6 Urinary catheterization as the cause of abnormal reaction of the patient, or of later complication, without mention of misadventure at the time of the procedure; Y92.89 Other specified places as the place of occurrence of the external cause; Y73.2 Prosthetic and other implants, materials and accessory gastroenterology and urology devices associated with adverse incidents; Z66 Do not resuscitate; Z90.79 Acquired absence of other genital organ(s); Z88.1 Allergy status to other antibiotic agents; Z88.5 Allergy status to narcotic agent; Z88.0 Allergy status to penicillin; Z88.8 Allergy status to other drugs, medicaments and biological substances; Z85.828 Personal history of other malignant neoplasm of skin; Z87.440 Personal history of urinary (tract) infections
CPT/HCPCS: 71045; 80048; 80053; 81003; 81015; 83605; 85025; 85027; 87040; 87077; 87086; 87186; 87502; 87811; 92610; 93005; 96374; 97163; 97167; 99285; J2185